=== PATIENT | female | born 1970 | race Caucasian/White ===

== ENCOUNTER 2016-11-26 14:28 | Emergency (ER) | payer OTHER ==
[2016-11-26 15:04] VITALS: BP 110/59
--- NOTE | 2016-11-26 15:11 | UC ---
UC General HPI - HPI Summary HPI Summary: Harsh cough, fevers, chest and throat tightness body aches - History of Current Complaint Chief Complaint: UCGeneralIllness Stated Complaint: BODY PAIN Time Seen by Provider: 11/26/16 15:10 Hx Obtained From: Patient Hx Last Menstrual Period: 05/17/13 Onset/Duration: Lasting Days, Worse Since - 24 hours Timing: Constant Onset Severity: Mild Current Severity: Moderate Associated Signs & Symptoms: Positive: Cough, Wheezing - Allergy/Home Medications Allergies/Adverse Reactions: Allergies Allergy/AdvReac Type Severity Reaction Status Date / Time Azithromycin [From Zithromax] Allergy Severe SEVERE GI Verified 02/22/13 21:54 PAIN Clarithromycin [From Biaxin] Allergy Severe REACTION Verified 02/22/13 21:54 WITH XANAX Codeine Allergy Severe Anaphylatic Verified 05/30/13 14:22 Shock Erythromycin Allergy Severe GI Upset Verified 02/22/13 21:54 Penicillins Allergy Unknown Unknown Verified 02/22/13 21:54 Reaction Details MULTIPLE ALLERGIES Allergy Severe See Comment Uncoded 05/30/13 14:22 Home Medications: Home Medications Acetaminophen [Tylenol] 650 mg PO 11/26/16 [History] Citalopram Hydrobromide [Celexa] 60 mg PO 11/26/16 [History] Pseudoephedrine-Guaifenesin [Mucinex D 60-600 mg] 1 tab PO 11/26/16 [History] PMH/Surg Hx/FS Hx/Imm Hx Previously Healthy: No - Fibromyalgia Psychological History: Anxiety - Surgical History Surgical History: Yes Surgery Procedure, Year, and Place: APPENDECTOMY, CHOLECYSTECTOMY, C-SECTIONX2 - Family History Known Family History: Positive: None - Social History 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 Lives: With Family Alcohol Use: Occasionally Substance Use Type: None Smoking Status (MU): Heavy Every Day Tobacco Smoker Type: Cigarettes Amount Used/How Often: 1/2 PPD Length of Time of Smoking/Using Tobacco: 25 YEARS Have You Smoked in the Last Year: Yes Cessation Counseling: Counseled 3+Min - 10 Min Review of Systems Constitutional: Fever, Chills, Fatigue Skin: Negative Eyes: Negative ENT: Sore Throat Respiratory: Cough Cardiovascular: Negative Gastrointestinal: Negative Genitourinary: Negative Motor: Negative Neurovascular: Negative Musculoskeletal: Arthralgia, Myalgia Neurological: Negative Psychological: Negative All Other Systems Reviewed And Are Negative: Yes Physical Exam Triage Information Reviewed: Yes Appearance: Ill-Appearing - mild, Pain Distress, Thin Vital Signs: Initial Vital Signs Temp 99.3 F 11/26/16 15:00 Pulse 76 11/26/16 15:00 Resp 18 11/26/16 15:00 BP 110/59 11/26/16 15:00 Pulse Ox 100 11/26/16 15:00 Vital Signs Reviewed: Yes Eye Exam: Normal Eyes: Positive: Conjunctiva Clear ENT Exam: Normal ENT: Positive: Normal ENT inspection, Hearing grossly normal, Pharynx normal, TMs normal. Negative: Nasal congestion, Nasal drainage, Tonsillar swelling, Tonsillar exudate, Trismus, Muffled/hoarse voice Dental Exam: Normal Neck exam: Normal Neck: Positive: Supple, Nontender, No Lymphadenopathy Respiratory Exam: Normal Respiratory: Positive: Chest non-tender, Lungs clear, No respiratory distress, No accessory muscle use, Wheezing - b/l Cardiovascular Exam: Normal Cardiovascular: Positive: RRR, No Murmur, Pulses Normal, Brisk Capillary Refill Musculoskeletal Exam: Normal Musculoskeletal: Positive: Strength Intact, ROM Intact, No Edema Neurological Exam: Normal Neurological: Positive: Alert, Muscle Tone Normal Psychological Exam: Normal Skin Exam: Normal Re-Evaluation - Re-Evaluation First Eval Change: Improved - increase aeration, feels much better after neb Course/Dx - Course Course Of Treatment: Keflex, smoking cesation information, albuterol MDI with spacer follow with pcp - Differential Dx - Multi-Symptom Differential Diagnoses: Sepsis, Urinary Tract Infection, Other - Bronchitis, nicotine dependent Provider Diagnoses: Acute bronchitis, nicotine dependent Discharge - Discharge Plan Condition: Stable Disposition: HOME Prescriptions: Albuterol HFA INHALER* [Ventolin HFA Inhaler*] 2 puff INH Q4H PRN #1 mdi PRN Reason: Cough Cephalexin CAP* [Keflex CAP*] 500 mg PO TID #21 cap Spacer/Aerosol-Holding Chamber [Aerochamber Plus] 1 mis XX SEE INSTRUCTIONS #1 mis Patient Education Materials: How to Stop Smoking (ED), Acute Bronchitis (ED), How to Use a Metered-Dose Inhaler and a Spacer (ED) Referrals: Elena Velazquez PA [Primary Care Provider] - 2 Weeks
[2016-11-26] MEDS ORDERED: Albuterol/Ipratropium NEB.SOL* Albuterol 2.5 MG/Ipratropium 0.5 MG 3 ML INH ONE (15:18)
[2016-11-26] MEDS ORDERED: predniSONE TAB* 20 MG PO ONE (15:19)
== END 2016-11-26 16:05 | disposition home or self-care (01) ==
LOC: UCEAST 14:28
DX: J20.9 Acute bronchitis, unspecified (principal); M79.7 Fibromyalgia; F41.9 Anxiety disorder, unspecified; Z90.49 Acquired absence of other specified parts of digestive tract; Z88.1 Allergy status to other antibiotic agents; Z88.5 Allergy status to narcotic agent; Z88.0 Allergy status to penicillin; F17.210 Nicotine dependence, cigarettes, uncomplicated; Z71.6 Tobacco abuse counseling
CPT/HCPCS: 99212; A9270-GY; G0463; J7512

== ENCOUNTER 2017-03-25 18:15 | Emergency (ER) | payer OTHER ==
[2017-03-25] MEDS ORDERED: Albuterol/Ipratropium NEB.SOL* Albuterol 2.5 MG/Ipratropium 0.5 MG 3 ML INH ONE (18:48)
[2017-03-25 19:15] VITALS: BP 125/75
--- NOTE | 2017-03-25 19:16 | RAD ---
INDICATION: Cough. History of pneumonia. Chest tightness. Tobacco use. COMPARISON: February 27, 2012 TECHNIQUE: Dual energy PA and routine lateral views of the chest were obtained. REPORT: Elevated lung volumes and both diffuse mild prominence of the interstitial markings and patchy rarefaction of the mid to upper lung zone interstitial markings. Negative for pleural effusion or pneumothorax. The heart, pulmonary vasculature, and mediastinal contours are unremarkable. Gallbladder fossa level surgical clips. Unremarkable soft tissue contours and osseous structures for age. IMPRESSION: Stigmata of obstructive lung disease. No acute pulmonary or cardiac process evident.
[2017-03-25] MEDS ORDERED: DOXYcycline CAP(*) 100 MG PO ONE (19:19)
--- NOTE | 2017-03-25 19:33 | UC ---
Throat Pain/Nasal Teto HPI - HPI Summary HPI Summary: FOUR DAYS OF CHEST CONGESTION SINUS PRESSURE PRODUCTIVE COUGH, WORSE TODAY. HISTORY OF PNEUMONIA ON JANUARY. - History of Current Complaint Chief Complaint: UCRespiratory Stated Complaint: COUGH/CONGESTION/HX OF PNEUMONIA Time Seen by Provider: 03/25/17 18:37 Hx Obtained From: Patient, Family/Line Repairer Hx Last Menstrual Period: 05/17/13 Onset/Duration: Gradual Onset, Lasting Days Severity: Moderate Cough: Productive Associated Signs & Symptoms: Positive: Hoarseness, Sinus Discomfort, Nasal Discharge - Epiglottits Risk Factors Epiglottis Risk Factors: Negative - Allergies/Home Medications Allergies/Adverse Reactions: Allergies Allergy/AdvReac Type Severity Reaction Status Date / Time Azithromycin [From Zithromax] Allergy Severe SEVERE GI Verified 02/22/13 21:54 PAIN Cephalexin Allergy Severe Rash Verified 03/25/17 19:06 Clarithromycin [From Biaxin] Allergy Severe REACTION Verified 02/22/13 21:54 WITH XANAX Codeine Allergy Severe Anaphylatic Verified 05/30/13 14:22 Shock Erythromycin Allergy Severe GI Upset Verified 02/22/13 21:54 Penicillins Allergy Unknown Unknown Verified 02/22/13 21:54 Reaction Details MULTIPLE ALLERGIES Allergy Severe See Comment Uncoded 03/25/17 19:06 Home Medications: Home Medications Albuterol 0.5% CONC NEB.SRIDHAR* 1 inh TID PRN 03/25/17 [History Confirmed 03/25/17] Benzonatate CAP* [Tessalon 100 MG CAP*] 1 cap TID PRN 03/25/17 [History Confirmed 03/25/17] Lansoprazole [Prevacid] 1 cap DAILY 03/25/17 [History Confirmed 03/25/17] PMH/Surg Hx/FS Hx/Imm Hx Previously Healthy: Yes - Surgical History Surgical History: Yes Surgery Procedure, Year, and Place: APPENDECTOMY, CHOLECYSTECTOMY, C-SECTIONX2 - Family History Known Family History: Positive: None - Social History Occupation: Employed Full-time Lives: With Family Alcohol Use: Occasionally Substance Use Type: None Smoking Status (MU): Heavy Every Day Tobacco Smoker Type: Cigarettes Amount Used/How Often: 1/2-1 PPD Length of Time of Smoking/Using Tobacco: 25 YEARS Have You Smoked in the Last Year: Yes - Immunization History Most Recent Influenza Vaccination: no Review of Systems Constitutional: Negative Skin: Negative Eyes: Negative ENT: Negative Respiratory: Negative Cardiovascular: Negative Gastrointestinal: Negative Genitourinary: Negative Motor: Negative Neurovascular: Negative Musculoskeletal: Negative Neurological: Negative Psychological: Negative Is Patient Immunocompromised?: No All Other Systems Reviewed And Are Negative: Yes Physical Exam Triage Information Reviewed: Yes Appearance: Well-Appearing, No Pain Distress, Well-Nourished Vital Signs: Initial Vital Signs Temp 97.9 F 03/25/17 19:09 Pulse 77 03/25/17 19:09 Resp 18 03/25/17 19:09 BP 125/75 03/25/17 19:09 Pulse Ox 99 03/25/17 19:09 Vital Signs Reviewed: Yes Eye Exam: Normal ENT: Positive: Hearing grossly normal, Pharynx normal, Nasal congestion, TM bulging, TM dull Dental Exam: Normal Neck exam: Normal Neck: Positive: Supple, Nontender Respiratory Exam: Other - COUGH Respiratory: Positive: Chest non-tender, Lungs clear, Normal breath sounds, No respiratory distress Cardiovascular Exam: Normal Cardiovascular: Positive: RRR, No Murmur, Pulses Normal, Brisk Capillary Refill Abdominal Exam: Normal Abdomen Description: Positive: Nontender, No Organomegaly Musculoskeletal Exam: Normal Neurological Exam: Normal Psychological Exam: Normal Skin Exam: Normal Throat Pain/Nasal Course/Dx - Differential Dx/Diagnosis Differential Diagnosis/HQI/PQRI: Pharyngitis, Sinusitis, Tonsillitis, URI Provider Diagnoses: SINUSITIS; BRONCHITIS Discharge - Discharge Plan Condition: Stable Disposition: HOME Prescriptions: DOXYcycline CAP(*) [DOXYcycline 100MG CAP(*)] 100 mg PO BID #20 cap Patient Education Materials: Sinusitis (ED), Acute Bronchitis (ED) Referrals: Elena Velazquez PA [Primary Care Provider] -
== END 2017-03-25 19:43 | disposition home or self-care (01) ==
LOC: UCCORT 18:15
DX: J32.9 Chronic sinusitis, unspecified (principal); J40 Bronchitis, not specified as acute or chronic; Z88.1 Allergy status to other antibiotic agents; Z88.5 Allergy status to narcotic agent; Z88.0 Allergy status to penicillin; F17.210 Nicotine dependence, cigarettes, uncomplicated
CPT/HCPCS: 71020; 99212; A9270-GY; G0463

== ENCOUNTER 2017-06-12 11:38 | Emergency (ER) | payer OTHER ==
--- OUTSIDE RECORDS SUMMARY | 2017-06-12 12:48 | XMS REPORT ---
:1970 External Reference #:[id number] Author Organization [facility] Address [address] [place] [address] Phone [phone] Care Team Providers Name Role Phone Jennifer Garcia M.D. Care Team Information Bpo Specialist Unavailable Jennifer Garcia M.D. Primary Care Physician Unavailable Payers Type Date Identification Numbers Payment Provider Subscriber Health Maintenance Policy Number: [id number] [facility] PayID: [id number] [address] [place] [id number] Problems Description No Information Family History Date Family Member(s) Problem(s) Comments General Seasonal Allergies General Asthma General Headache, Chronic General Gastroesophageal Reflux Disease (GERD) General Migraine General Hypertension General Skin Disease/ rash Father Seasonal Allergies Father Asthma Father Hypertension Father Skin Disease/ rash Skin cancer Mother Gastroesophageal Reflux Disease (GERD) Mother Headache, Chronic Mother Migraine Social History Type Date Description Comments Home 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 Home Environment Has a window air conditioner Home Environment Stairs are present Home Environment Finished Basement Home Environment The basement is dry Home Environment Cotton Comforter Home Environment Mattress is 1 year old Less than Home Environment Mattress is not encased in an allergy proof case Home Environment Regular Mattress Home Environment Rubber Mattress Home Environment Pillows are polyester Home Environment Pillows are not encased in an allergy proof case Home Environment Does not use a dehumidifier Home Environment There are draperies in the home Home Environment The home is not shady Home Environment The floors are wood Home Environment Uses propane gas heating Home Environment Uses forced air heating Home Environment [place] Home Environment Water Source: Well Smoke-Free Home is smoke-free Pets 2 dogs Pets Animals sleep in bedroom 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 Briseida EXTERIOR WORK HELPER-C tapered over 6 days. Symbicort 05/29/ Active Aerosol 160-4.5mc 10.20 2 Vannesa 2018 g/Act 0gm inhalations Forschavoer, am&pm - EXTERIOR WORK HELPER-C use with spacer- rinse mouth after use Albuterol 05/29/ Active Nebulizer (2.5mg/3M 90uni #1 via Ewelina Sulfate 2018 L) 0.083% ts nebulizer García, every 4-6 MD hours as needed for cough, shortness of breath and wheezing Ipratropium 05/29/ Active Solution 0.5-2.5(3 90ml 1 respule Vannesa [place]/Albuter 2017 )mg/3ML via Willer, ol Sulfate nebulizer EXTERIOR WORK HELPER-C every 6 hours as needed for cough, sob, wheezing Triamcinolone 05/23/ Active Aerosol 55mcg/Act 16.90 2 squirts L50.1 John W. Acetonide 2017 0ml each nostril Montes De Oca, once daily M.D. Doxycycline / Active Capsules 100mg Unknown Monohydrate 0000 Valacyclovir / Active Tablets 500mg Unknown HCL 0000 Citalopram / Active Tablets 40mg Unknown Hydrobromide 0000 Alprazolam / Active Tablets 0.5mg Unknown 0000 Benzonatate / Active Capsules 200mg White, 0000 ELIEZER Agrawal Lansoprazole / Active Capsules 30mg Jose, 0000 DR Ahmad, M.D. Ventolin HFA 00/00/ Active Aerosol 108(90Bas Marcus, 0000 e) ELIEZER Parker mcg/Act Albuterol / Hx Nebulizer (2.5mg/3M White, Sulfate 0000 - L) 0.083% ELIEZER Agrawal 2017 Vital Signs Date Vital Result Comment 05/29/2017 Height 62 inches 5'2" Weight 134.00 lb Weight in kg's 60.782 Respiratory Rate 20 /min Heart Rate 62 /min Body Temperature 97.1 F O2 % BldC Oximetry 98 % 98 re-check BP Systolic 118 mmHg BP Diastolic 71 mmHg BMI (Body Mass Index) 24.5 kg/m2 05/23/2017 Height 62 inches 5'2" Weight 134.00 lb Weight in kg's 60.782 Respiratory Rate 16 /min Heart Rate 89 /min Body Temperature 98.4 F O2 % BldC Oximetry 98 % BP Systolic 101 mmHg BP Diastolic 64 mmHg Asthma Control Test 20 BMI (Body Mass Index) 24.5 kg/m2 Results Description No Information Procedures Date CPT Code Description Status 05/29/2017 66474 Pulmonary Function Test Completed 05/23/2017 83842 Pre PFT Completed Plan of Care Future Appointment(s):06/27/2017 11:20 am - John Montes De Oca M.D. at [facility]05/29/2017 - MURIEL Collins-[id number] Encounter for [id number] Other allergic rhinitisNew Xrays:Chest Xray, 2 viewsNew Medication:Medrol 4 mgSymbicort 160-4.5 mcg/ActAlbuterol Sulfate (2.5 mg/3ML) 0.083%Ipratropium [place]/Albuterol Sulfate 0.5-2.5(3) mg/3MLComments: Dr Bennett also in to discuss w/ patient. Our assessments and recommendations were discussed with the patient or patient's daughter who expressed understanding and agreement with the treatment plan.Patient is happy with the current treatment plan and would like to continue with this regimen.Recommendations:Continue all medications as prescribed.Refrain from wearing perfumes/scented colognes while visitingour office. Patient to discuss an influenza vaccination with their primary-care provider. Educational materials provided to the patient. May use Duoneb (ipratropium bromide/ albuterol) 1 vial in nebulizer every 6 hours as needed for sob, wheeze, cough Start: Medrol dose pack for 6 days as directedon package CXR today STAT 2 views Continue doxycycline regimen until finished Start: Maintenance Inhaler Symbicort 2 puffs twice a day- rinse mouth after use- use w/ spacer If any symtpoms worsen-or you develope fever must go to ER. Or if symptoms are not relieved w/ rescue inhaler use call 911 and go to ER. Is following up with Dr Bennett tomorrow in [place] for recheck. She will obtain her labs (split into three different visits so she can tolerate better). F/u with new PCP tomorrow as scheduled. ER if symptoms worsen.
--- OUTSIDE RECORDS SUMMARY | 2017-06-12 12:48 | XMS REPORT ---
:1970 External Reference #:[id number] Author Organization [facility] Address [address] [place] [address] Phone [phone] Care Team Providers Name Role Phone Jennifer Garcia M.D. Care Team Information Aoc Operations Intelligence Chief Unavailable Jennifer Garcia M.D. Primary Care Physician Unavailable Payers Type Date Identification Numbers Payment Provider Subscriber Health Maintenance Policy Number: [id number] [facility] ([facility]) [facility] PayID: [id number] [address] [address] [place] [address] Problems Date Description Provider Status Onset: 05/30/2017 Exacerbation of moderate persistent Kathie Bennett M.D. Active asthma Onset: 05/30/2017 Allergic rhinitis Kathie Bennett M.D. Active Onset: 05/30/2017 Cough Kathie Bennett M.D. Active Onset: 05/23/2017 Mild intermittent asthma John Montes De Oca M.D. Active Onset: 05/23/2017 Immunization John Montes De Oca M.D. Active Onset: 05/23/2017 Idiopathic urticaria John Montes De Oca M.D. 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 Home Environment Has a window air conditioner [...] Lives in a new house in the [facility] Home Environment Water Source: Well Smoke-Free Home is smoke-free Pets 2 dogs Pets Animals sleep in bedroom 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 morning and evening Medrol 05/29/ Active TBPK 4mg 21uni 1 dose pack- [email or web address] ts take as hina Goins. 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 Symbicort 05/29/ Active Aerosol 160-4.5mc 10.20 2 2017 g/Act 0gm inhalations Donald, am&pm - M.D. use with spacer- rinse mouth after use Albuterol 05/29/ Active Nebulizer (2.5mg/3M 90uni #1 via Ewelina Sulfate 2018 L) 0.083% ts nebulizer García, every 4-6 MD hours as needed for cough, shortness of breath and wheezing Ipratropium 05/29/ Active Solution 0.5-2.5(3 90ml 1 respule [place]/Albuter 2017 )mg/3ML via Piershun, ol Sulfate nebulizer M.D. every 6 hours as needed for cough, sob, wheezing Triamcinolone 05/23/ Active Aerosol 55mcg/Act 16.90 2 squirts L50.1 John Reeder. Acetonide 2017 0ml each nostril Montes De Oca, once daily M.D. Valacyclovir / Active Tablets 500mg Unknown HCL 0000 Citalopram / Active Tablets 40mg Unknown Hydrobromide 0000 Alprazolam / Active Tablets 0.5mg Unknown 0000 Benzonatate / Active Capsules 200mg White, 0000 ELIEZER Agrawal Lansoprazole / Active Capsules 30mg Jose, 0000 DR Jennifer M.D. Ventolin HFA / Active Aerosol 108(90Bas Marcus, 0000 e) ELIEZER Parker mcg/Act Albuterol / Hx Nebulizer (2.5mg/3M White, Sulfate 0000 - L) 0.083% ELIEZER Agrawal 2017 Vital Signs Date Vital Result Comment 06/12/2017 Height 62 inches 5'2" Weight 134.00 lb Weight in kg's 60.782 Respiratory Rate 18 /min Heart Rate 77 /min O2 % BldC Oximetry 97 % BP Systolic 107 mmHg BP Diastolic 60 mmHg Asthma Control Test 7 BMI (Body Mass Index) 24.5 kg/m2 05/30/2017 Height 62 inches 5'2" Weight 134.00 lb Weight in kg's 60.782 Respiratory Rate 18 /min Heart Rate 71 /min O2 % BldC Oximetry 99 % BP Systolic 131 mmHg BP Diastolic 79 mmHg Asthma Control Test 9 BMI (Body Mass Index) 24.5 kg/m2 05/29/2017 Height 62 inches 5'2" Weight 134.00 [...] BMI (Body Mass Index) 24.5 kg/m2 Results Test Date Test Result H/L Range Note Xray 05/30/2017 Chest Xray, 2 views <pending> Procedures Date CPT Code Description Status 05/30/2017 39318 Ippb Completed 05/29/2017 60652 Pulmonary Function Test Completed 05/23/2017 13941 Pre PFT Completed Encounters Type Date Location Provider CPT E/M Dx Office Visit 05/30/2017 11:00a [place] Kathie Bennett M.D. 09694 J45.41 J30.89 R05 R05 J45.41 Office Visit 05/29/2017 1:20p [facility] OSVALDO CollinsC 37783 Z23 R05 J30.89 Plan of Care Future Appointment(s):07/10/2017 11:40 am - Kathie Bennett M.D. at [facility]06/12/2017 - MURIEL Collins-CZ23 Encounter for immunizationRecommendations:Continue all medications as prescribed.Refrain from wearing perfumes/scented colognes while visitingour office. Patient to discuss an influenza vaccination with their primary-care provider. Educational materials provided to the patient.
--- OUTSIDE RECORDS SUMMARY | 2017-06-12 12:48 | XMS REPORT ---
:1970 External Reference #:[id number] Author Organization [facility] Address [address] [place] [address] Phone [phone] Care Team Providers Name Role Phone Jennifer Garcia M.D. Care Team Information Electrical Technician Instructor Unavailable Jennifer Gracia M.D. Primary Care Physician Unavailable Payers Type Date Identification Numbers Payment Provider Subscriber Health Maintenance Policy Number: [id number] [facility] [place] [place] [facility] PayID: [id number] [address] [address] [place] [address] Problems Date Description Provider Status Onset: 05/30/2017 Exacerbation of moderate persistent Kathie Bennett M.D. Active asthma Onset: 05/30/2017 Allergic rhinitis Kathie Bennett M.D. Active Onset: 05/30/2017 Cough Kathie Bennett M.D. 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 Symbicort 05/29/ Active Aerosol 160-4.5mc 10.20 2 Kathie M 2018 g/Act 0gm inhalations Donald, am&pm - M.D. use with spacer- rinse mouth after use Albuterol 05/29/ Active Nebulizer (2.5mg/3M 90uni #1 via Ewelina Sulfate 2018 L) 0.083% ts nebulizer García, every 4-6 MD hours as needed for cough, shortness of breath and wheezing Ipratropium 05/29/ Active Solution 0.5-2.5(3 90ml 1 respule Kathie [place]/Albuter 2017 )mg/3ML via Piers[place]un, ol Sulfate nebulizer M.D. every 6 hours as needed for cough, sob, wheezing Triamcinolone 05/23/ Active Aerosol 55mcg/Act 16.90 2 squirts L50.1 John Pickens Acetonide 2017 0ml each nostril Montes De Oca, once daily M.D. Doxycycline / Active Capsules 100mg Unknown Monohydrate 0000 Valacyclovir / Active Tablets 500mg Unknown HCL 0000 Citalopram 00/ Active Tablets 40mg Unknown Hydrobromide 0000 Alprazolam [...] 2017 Vital Signs Date Vital Result Comment 05/30/2017 Height 62 inches 5'2" Weight 134.00 [...] <pending> Procedures Date CPT Code Description Status 05/29/2017 66860 Pulmonary Function Test Completed 05/23/2017 84189 Pre PFT Completed Encounters Type Date Location Provider CPT Lucretia/M Dx Office Visit 05/30/2017 11:00a Dorita Bennett M.D. 18349 R05 J30.89 J45.41 Plan of Care Future Appointment(s):07/10/2017 11:40 am - Kathie Bennett M.D. at [place] Pfolgo4406/12/2017 10:00 am - MAITE Collins at [place] Yvweaf2106/27/2017 11:20 am - John Montes De Oca M.D. at [place] Aatjql7205/30/2017 - Kathie Bennett M.D.R05 YdjdpK32.89 Other allergic ayupzjslG51.41 Moderate persistent asthma with (acute) exacerbationNew Medication:Dulera 100-5 mcg/ActFollow up:2 weeks, *DISCUSSION: After the evaluation is completed, the results and treatment choices will be explained.Recommendations:Refrain from wearing perfumes/scented colognes while visiting our office. Patient to discuss an influenza vaccination with primary-care provider. Educational material provided to the patient. DuoNeb now okay to use DuoNeb (ipratropium bromide/ albuterol) 1 vial in nebulizer every 6 hours as needed forsob, wheeze, cough Continue doxycycline regimen until finished Start: Maintenance Inhaler Symbicort 160/4.5 2 puffs twice a day- rinse mouth after use- use w/ spacer If any symptoms worsen- or you develop fever must go to ER. Or if symptoms are not relieved w/ rescue inhaler use call 911 and go toER. She will obtain her labs (split into three different visits so she can tolerate better). consider pulmonary f/u
--- OUTSIDE RECORDS SUMMARY | 2017-06-12 12:49 | XMS REPORT ---
:1970 External Reference #:[id number] Author Organization [facility] 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 Active Onset: 06/11/2014 Carcinoma in situ of skin Mee Yao M.D. Active Onset: 06/11/2014 Abnormal cervical Papanicolaou smear Mee Yao M.D. Active Onset: 06/11/2014 Anxiety disorder Mee Yao M.D. Active Onset: 06/11/2014 Multiple joint pain Mee Yao M.D. Active Onset: 06/11/2014 Adult health examination Mee Yao M.D. Active Note: A1C 5.18 Jan 2016, TSH, Lyme, B12, folate WNL Jan 2016. HCV neg Jan 2016. HIV neg September 2016 Onset: 04/22/2015 Joint pain Greg Amador DO Active Onset: 07/26/2016 Vasovagal symptom Elena Velazquez PA-C Active Note: With ear irrigations- do NOT irrigate ears Onset: 05/22/2017 Acute upper respiratory infection Chino Desai M.D. Active Onset: 05/22/2017 Acute bronchitis Chino Desai M.D. Active Family History Date Family Member(s) Problem(s) Comments Father Pituitary Tumors Father 65 Father Hypertension Mother 62 Mother Epilepsy Social History Type Date Description Comments Marital Status Single Lives With Alone Diet Patient follows no dietary restrictions Diet Healthy, Well Balanced Occupation Disabled Cigarette Use currently smokes 1/2 Pack Daily X 23 YEARS ETOH Use Rarely consumes alcohol Recreational Drug Use Denies Drug Use Smoking Heavy tobacco smoker (more than 10 cigarettes/day) Daily Caffeine Does Not Consume Caffeine Enjoy Exercising Patient enjoys exercising 4X PER WEEK Tattoo/Piercing Tattoo Tattoo/Piercing Pierced Navel Tattoo/Piercing Pierced ears Tattoo/Piercing Pierced Eyebrow Right Currently Active Patient is currently sexually active # Partners in a Lifetime Has been with current partner for 5 months Allergies, Adverse Reactions, Alerts Date Description Reaction Status Severity Comments 04/14/2010 Seafood RASH active 04/14/2010 Latex RASH active 06/11/2014 Codeine active 06/11/2014 Zithromax active 06/22/2016 Metronidazole nausea,HTN active Moderate to Severe only oral form 07/26/2016 Ear Irrigation active vasovagal syncope 11/28/2016 Penicillin Anaphylaxis active Severe 11/28/2016 Cephalexin possible - rash active Mild to Moderate Medications Medication Date Status Form Strength Qnty SIG Indications Ordering Provider Ventolin HFA 12/25 Active Aerosol 108(90Bas 1inha 2 puffs every e) ler 4 hours as Duron, mcg/Act needed dyspnea M.D. Ipratropium 11/28 Active Solution 0.02% 75ml 0.5 mg J20.9 [place] nebulized Duron, every 4 hours M.D. as needed Nebulizer 11/27 Active Device 1unit uad with Deven s ipratropium Joselyn Duron Nebulizer 11/27 Active Kit 1unit uad with Deven Kit/Tubing/Brianna s nebulfariba Palacios M.D. Benzonatate 11/27 Active Capsules 200mg 90cap 1 by mouth J20.9 s three times a Duron, day as needed MBrindaDBrinda cough Lansoprazole 12/15 Active Capsules 30mg 90cap [address] cordova every day Joselyn Duron Nystatin 05/27 Active Powder [id number] 180gm use twice a H66.91 t/GM day as hina Duron M.D. Zyrtec Allergy 04/22 Active Capsules 10mg 30cap 1 by mouth Greg EBrinda /2015 s every day Perry DO Xanax Active Tablets 0.5mg 1/2 tab 4 Unknown /0000 times day & 1 tab at bedtime Citalopram Active Tablets 40mg 1 by mouth Unknown Hydrobromide / every day Valacyclovir Active Tablets 500mg 90tab take one HCL / s tablet by Duron, mouth daily as M.D. needed Levofloxacin 11/29 Hx Tablets 750mg 7tabs 1 by mouth every day x 7 Duron, days M.DBrinda Nicotrol 11/28 Hx Inhaler 10mg 168un 6-16 F17.200 its cartridges Duron, daily as M.DBrinda needed Albuterol 11/27 Hx Nebulizer (2.5mg/3M 75ml nebulized Deven Sulfate /2016 L) 0.083% every 4 hours Oliverio, - as needed M.D. 11/28 Prednisone 11/27 Hx Tablets 10mg 90tab 3 by mouth J20.9 s every day x 3 Duron, - days M.D. 11/27 Prednisone 11/27 Hx Solution 5mg/5ML 120ml 30 mg orally J20.9 daily Joselyn Duron Amoxicillin/Cl 10/05 Hx Tablets 875-125mg 20tab 1 by mouth L03.032 avulanate s twice a day x Oliverio Potassium 10 days M.DBrinda Monistat 3 10/05 Hx Cream 4% 1Kit 1 B37.3 applicatorful Duron, vaginal crm pv M.D. qhs x3 days; apply topical crm externally bid prn Azelastine HCL 07/26 Hx Solution 0.15% 90ml 1-2 sprays J30.9 (Nasal) intranasally Duron, twice a day M.D. Metrogel-Vagin 06/22 Hx Gel 0.75% 70gm 1 N76.0 applicatorful Duron, pv bid x 5 M.D. days Augmentin 06/21 Hx Tablets 875-125mg 20tab 1 by mouth s twice a day x Duron, - 10 days M.D. 06/21 Cephalexin 06/21 Hx Capsules 500mg 21cap 1 PO tid x 7 J01.90 s days Joselyn Duron Cephalexin 02/08 Hx Capsules 500mg 14cap 1 PO bid x 7 J01.90 Greg Alarcon s kacey Amador DO - 06/21 Cephalexin 05/27 Hx Tablets 500mg 30tab 1 po tid H66.91 Greg Alarcon /2015 s Perry BROWN - 12/15 Fluconazole 05/27 Hx Tablets 150mg 1tabs 1 po at sign H66.91 Greg Alarcon of yeast Perry BROWN - infection 12/15 Flax Seed Oil 04/22 Hx Capsules 1000mg 1 by mouth Greg EBrinda /2015 every day Perry BROWN Colace 04/20 Hx Capsules 100mg 60cap 1 po bid 564.00 s Erich Mtz M.D. 06/10 V22.1 Prenate 04/20/2010 - Hx Capsules 28-0.6-0.4-340mg 60caps 1 po qd V22.1 Jacques Essential 06/10/2014 Joselyn Mtz Multivitamins Hx Capsules 90caps 1 by Unknown mouth every day Epsom Salt Hx Granules Unknown Betadine Skin Hx Solution 7.5% Unknown Cleanser Mupirocin Hx Ointment 2% LT toe Unknown bid Cephalexin - Hx Tablets 500mg 1 tab L03.03 Unknown 11/28/2016 orally 2 three times daily Ventolin HFA - Hx Aerosol 108(90Base) Dibartol 11/28/2016 mcg/Act o, Soniya Rodríguez, N.P. Vital Signs Date Vital Result Comment 05/22/2017 BP Systolic Sitting Left Arm 101 mmHg BP Diastolic Sitting Left Arm 65 mmHg Body Temperature 99.7 F Heart Rate 84 /min Respiratory Rate 18 /min Height 61 inches 5'1" Weight 135.00 lb BMI (Body Mass Index) 25.5 kg/m2 BSA (Body Surface Area) 1.60 m2 [place] body weight in kilograms 48 O2 % BldC Oximetry 98 % 11/28/2016 BP Systolic Sitting Right Arm 103 mmHg BP Diastolic Sitting Right Arm 69 mmHg Body Temperature 99.1 F Heart Rate 70 /min Respiratory Rate 18 /min Height 61 inches 5'1" Weight 130.00 lb BMI (Body Mass Index) 24.6 kg/m2 BSA (Body Surface Area) 1.57 m2 [place] body weight in kilograms 48 O2 % BldC Oximetry 99 % 11/27/2016 BP Systolic Sitting Right Arm 106 mmHg BP Diastolic Sitting Right Arm 70 mmHg Body Temperature 98.0 F Heart Rate 68 /min Respiratory Rate 16 /min Height 61 inches 5'1" Weight 130.00 lb BMI (Body Mass Index) 24.6 kg/m2 BSA (Body Surface Area) 1.57 m2 [place] body weight in kilograms 48 O2 % BldC Oximetry 98 % 10/05/2016 BP Systolic 102 mmHg BP Diastolic 69 mmHg Body Temperature 98.2 F Heart Rate 71 /min Height 61 inches 5'1" Weight 130.00 lb BMI (Body Mass Index) 24.6 kg/m2 BSA (Body Surface Area) 1.57 m2 [place] body weight in kilograms 48 07/26/2016 BP Systolic 119 mmHg BP Diastolic 68 mmHg Body Temperature 97.3 F Heart Rate 70 /min Height 61 inches 5'1" Weight 131.00 lb BMI (Body Mass Index) 24.7 kg/m2 BSA (Body Surface Area) 1.58 m2 06/22/2016 BP Systolic 116 mmHg BP Diastolic 72 mmHg Heart Rate 70 /min Height 61 inches 5'1" Weight 134.00 lb BMI (Body Mass Index) 25.3 kg/m2 BSA (Body Surface Area) 1.59 m2 02/09/2016 BP Systolic 115 mmHg BP Diastolic 58 mmHg Heart Rate 63 /min Height 61 inches 5'1" Weight 133.00 lb BMI (Body Mass Index) 25.1 kg/m2 BSA (Body Surface Area) 1.59 m2 12/16/2015 BP Systolic 126 mmHg BP Diastolic 78 mmHg Body Temperature 98.5 F Heart Rate 68 /min Respiratory Rate 16 /min Height 61 inches 5'1" Weight 127.00 lb BMI (Body Mass Index) 24.0 kg/m2 BSA (Body Surface Area) 1.56 m2 05/27/2015 BP Systolic Sitting Left Arm 118 mmHg BP Diastolic Sitting Left Arm 80 mmHg Body Temperature 98.0 F Heart Rate 68 /min Height 61 inches 5'1" Weight 128.00 lb BMI (Body Mass Index) 24.2 kg/m2 BSA (Body Surface Area) 1.56 m2 O2 % BldC Oximetry 97 % 04/22/2015 BP Systolic Sitting Left Arm 114 mmHg BP Diastolic Sitting Left Arm 70 mmHg Heart Rate 68 /min Height 61 inches 5'1" Weight 129.00 lb BMI (Body Mass Index) 24.4 kg/m2 BSA (Body Surface Area) 1.57 m2 O2 % BldC Oximetry 98 % 06/11/2014 BP Systolic Sitting Right Arm 107 mmHg BP Diastolic Sitting Right Arm 63 mmHg Heart Rate 90 /min Respiratory Rate 18 /min Height 61 inches 5'1" Weight 125.00 lb BMI (Body Mass Index) 23.6 kg/m2 BSA (Body Surface Area) 1.55 m2 O2 % BldC Oximetry 99 % 07/08/2010 BP Systolic Sitting Left Arm 100 mmHg BP Diastolic Sitting Left Arm 62 mmHg Heart Rate 88 /min Respiratory Rate 18 /min Height 62 inches 5'2" Weight 133.00 lb BMI (Body Mass Index) 24.3 kg/m2 06/14/2010 Heart Rate 76 /min Respiratory Rate 20 /min Weight 130.00 lb 05/11/2010 Heart Rate 75 /min Respiratory Rate 18 /min Weight 128.00 lb 04/14/2010 Heart Rate 71 /min Respiratory Rate 18 /min Weight 126.00 lb Results Test Date Test Result H/L Range Note Laboratory Studies 03/19/2017 Absolute Basophils (auto) 0.1 10^3/ul 0- 0.2 Absolute Eosinophils (auto) 0.2 10^3/ul 0-0.6 Absolute Lymphocytes (auto) 2.0 10^3/ul 1.0-4.8 Absolute Monocytes (auto) 0.4 10^3/ul 0-0.8 Absolute Neutrophils (auto) 2.7 10^3/ul 1.5-7.7 Alanine Aminotransferase (Alt/SGPT) 11 U/L 7-52 Albumin 4.2 g/dL 3.2-5.2 Albumin/Globulin Ratio 1.9 1-3 Alkaline Phosphatase 33 U/L Low 34-104 Anion Gap 5 mmol/L 2-11 Aspartate Amino Transf (Ast/Sgot) 15 U/L 13-39 BUN/Creatinine Ratio 11.1 8-20 Basophils (%) (Auto) 1.9 % 0-2 Blood Urea Nitrogen 8 mg/dL 6-24 Calcium Level 9.1 mg/dL 8.6-10.3 Carbon Dioxide Level 27 mmol/L 22-32 Chloride Level 106 mmol/L 101-111 Cholesterol Level 139 mg/dL Creatinine 0.72 mg/dL 0.51-0.95 Eosinophils (%) (Auto) 4.2 % 0-6 Estimated GFR () 112.1 Estimated GFR (Non- 87.2 Globulin 2.2 g/dL 2-4 Glucose Level 92 mg/dL 70-100 HDL Cholesterol 55.4 mg/dL Hematocrit 39 % 35-47 Hemoglobin 13.1 g/dL 12.0-16.0 Hemoglobin A1c 5.5 % 4.0-5.6 LDL Cholesterol 64 mg/dL Lymphocytes (%) (Auto) 36.1 % 25-47 Mean Corpuscular Hemoglobin 33 pg High 27-31 Mean Corpuscular Hemoglobin Concent 34 g/dL 31-36 Mean Corpuscular Volume 97 fL 80-97 Mean Platelet Volume 9 um3 7.4-10.4 Monocytes (%) (Auto) 7.9 % 1-9 Neutrophils (%) (Auto) 49.9 % 38-83 Nucleated RBC Absolute Count (auto) 0 10^3/ul Nucleated Red Blood Cells % 0 Platelet Count 199 10^3/ul 150-450 Potassium Level 4.0 mmol/L 3.5-5.0 Red Blood Count 4.00 10^6/ul 4.0-5.4 Red Cell Distribution Width 13 % 10.5-15 Sodium Level 138 mmol/L 133-145 Thyroid Stimulating Hormone (TSH) 0.65 mcIU/mL 0.34-5.60 Total Bilirubin 0.40 mg/dL 0.2-1.0 Total Protein 6.4 g/dL 6.4-8.9 Triglycerides Level 100 mg/dL White Blood Count 5.5 10^3/ul 3.5-10.8 Laboratory test finding 10/05/2016 Rapid Abdet Non-Reactive 1, 2 Laboratory test finding 02/09/2016 Thyroid Stim 0.78 uIU/mL 0.30-4.20 3 Hormone Comprehensive Metabolic 02/09/2016 Glucose 102 mg/dL 74-106 3 Panel BUN 10 mg/dL 7-18 3 Creatinine 0.8 mg/dL 0.6-1.3 3 Glom Filtration Rate, Estimate >60 mL/min >60 3 If >60 mL/min >60 3, 4 BUN/Creat 12.5 ratio 3 Sodium 140 mmol/L 136-145 3 Potassium 4.3 mmol/L 3.5-5.1 3 Chloride 108 mmol/L High 98-107 3 Carbon Dioxide 30 mmol/L 21-32 3 Anion Gap 2 mEq/L Low 8-16 3 Calcium 8.4 mg/dL Low 8.5-10.1 3 Total Protein 6.8 g/dL 6.4-8.2 3 Albumin 3.8 g/dL 3.4-5.0 3 Globulin 3.0 g/dL 1.9-4.3 3 Alb/Glob 1.3 ratio 3 Bilirubin,Total 0.3 mg/dL 0.2-1.0 3 Sgot/Ast 12 U/L Low 15-37 3, 5 SGPT/Alt 14 U/L 12-78 3 Alkaline Phosphatase 44 U/L Low 45-117 3 Hepatitis C Antibody 02/09/2016 Hepatitis C Antibody Nonreactive Nonreactive 3 Signal/Cutoff ratio < 0.02 <0.80 3, 6 Laboratory test 02/09/2016 Lyme Total AB/Reflex < 0.91 ISR 0.00-0.90 3, 7 finding To WB CBS W/Automated Diff 02/09/2016 White Blood Count 9.4 K/uL 3.1-10.7 3 Red Blood Count 3.99 M/uL 3.90-5.40 3 Hemoglobin 13.6 gm/dL 11.6-15.8 3 Hematocrit 39.3 % 36.0-46.1 3 Mean Cell Volume 98.5 fl 80.9-99.0 3 Mean Corpuscular HGB 34.1 pg High 25.9-32.7 3 Mean Corpuscular HGB Conc 34.6 g/dL High 30.8-34.3 3 Platelet Count 187 K/uL 155-360 3 Red Cell Distri Width SD 42.1 fl 3-47 3 Red Cell Distri Width %CV 11.9 % 11.7-14.4 3 Mean Platelet Volume 11.0 fL 8.9-12.4 3 Neut% 62.2 % 40.4-72.8 3 Lymph % 27.5 % 17.0-46.1 3 [place] % 7.2 % 4.3-13.2 3 Eo% 2.7 % 0.0-6.6 3 Bas% 0.4 % 0.0-1.1 3 Neut# 5.83 K/uL 1.8-7.0 3 Lymph # 2.57 K/uL 1.8-7.0 3 [place] # 0.67 K/uL 0.3-0.9 3 Eos # 0.25 K/uL 0.0-0.5 3 Baso # 0.04 K/uL 0.0-0.1 3 Vitamin B12 And Folate 02/09/2016 Vitamin B12 486 pg/mL 193-986 3 Folic Acid 40.7 ng/mL High 3.1-17.5 3 Glycohemoglobin A1c 02/09/2016 Glycohemoglobin (A1c) 5.4 % 4.2-6.3 3, 8 eAG 108 mg/dL 3 Laboratory test finding 04/30/2015 Rheumatoid Factor < 10.0 IU/mL 0.0- 15.0 Screen Anti-Nuclear Antibodies Direct Negative AU/mL Negative Sedimentation Rate 5 mm/hr 0-20 C-Reactive Protein,Cardiac < 0.16 mg/L <3.0 CBS W/Automated Diff 04/30/2015 White Blood Count 5.3 K/uL 3.1-10.7 Red Blood Count 3.94 M/uL 3.90-5.40 Hemoglobin 13.0 gm/dL 11.6-15.8 Hematocrit 38.5 % 36.0-46.1 Mean Cell Volume 97.7 fl 80.9-99.0 Mean Corpuscular HGB 33.0 pg High 25.9-32.7 Mean Corpuscular HGB Conc 33.8 g/dL 30.8-34.3 Platelet Count 186 K/uL 155-360 Red Cell Distri Width SD 42.2 fl 3-47 Red Cell Distri Width %CV 12.0 % 11.7-14.4 Mean Platelet Volume 10.4 fL 8.9-12.4 Neut% 44.0 % 40.4-72.8 Lymph % 43.3 % 17.0-46.1 [place] % 7.2 % 4.3-13.2 Eo% 4.6 % 0.0-6.6 Bas% 0.9 % 0.0-1.1 Neut# 2.32 K/uL 1.8-7.0 Lymph # 2.28 K/uL 1.8-7.0 [place] # 0.38 K/uL 0.3-0.9 Eos # 0.24 K/uL 0.0-0.5 Baso # 0.05 K/uL 0.0-0.1 Comprehensive Metabolic Panel 04/30/2015 Glucose 85 mg/dL 74-106 BUN 9 mg/dL 7-18 Creatinine 0.7 mg/dL 0.6-1.3 Glom Filtration Rate, Estimate >60 mL/min >60 If >60 mL/min >60 9 BUN/Creat 12.8 ratio Sodium 137 mmol/L 136-145 Potassium 3.9 mmol/L 3.5-5.1 Chloride 106 mmol/L 98-107 Carbon Dioxide 27 mmol/L 21-32 Anion Gap 4 mEq/L Low 8-16 Calcium 8.4 mg/dL Low 8.5-10.1 Total Protein 6.9 g/dL 6.4-8.2 Albumin 3.8 g/dL 3.4-5.0 Globulin 3.1 g/dL 1.9-4.3 Alb/Glob 1.2 ratio Bilirubin,Total 0.4 mg/dL 0.2-1.0 Sgot/Ast 16 U/L 15-37 SGPT/Alt 21 U/L 12-78 Alkaline Phosphatase 42 U/L Low 45-117 Sjogren's Antibodies 04/30/2015 Sjogrens Antibodies (Ssa) <0.2 AI 0.0- 0.9 Sjogrens Antibodies (SSB) <0.2 AI 0.0-0.9 10 CBC W/Automated Diff 04/19/2010 White Blood Count 8.0 K/uL 3.1-10.7 Red Blood Count 3.45 M/uL Low 3.90-5.40 Hemoglobin 11.3 gm/dL Low 11.6-15.8 Hematocrit 33.2 % Low 36.0-46.1 Mean Cell Volume 96.2 fl 80.9-99.0 Mean Corpuscular HGB 32.8 pg High 25.9-32.7 Mean Corpuscular HGB Conc 34.0 g/dL 30.8-34.3 Platelet Count 193 K/uL 155-360 Red Cell Distri Width %CV 11.5 % Low 11.7-14.4 Mean Platelet Volume 10.0 fL 8.9-12.4 Neut% 67.0 % 40.4-72.8 Lymph % 24.6 % 17.0-46.1 [place] % 6.7 % 4.3-13.2 Eo% 1.2 % 0.0-6.6 Bas% 0.5 % 0.0-1.1 Neut# 5.4 K/uL 1.0-7.0 Lymph # 2.0 K/uL 0.8-3.4 [place] # 0.5 K/uL 0.3-0.9 Eos # 0.1 K/uL 0.0-0.5 Baso # 0.0 K/uL 0.0-0.1 Red Cell Distri Width SD 39.0 fl 3-47 Type And Screen 04/19/2010 Patient Blood Type O POS Antibody Screen NEGATIVE Laboratory test finding 04/19/2010 Urine Screen See Note 11 Urine Culture See Note 12 Urinalysis With Microscopic 04/19/2010 Urine Color YELLOW Yellow Urine Clarity CLEAR Clear Urine Glucose - Dipstick NEGATIVE mg/dL Negative Urine Bilirubin - Dipstick NEGATIVE Negative Urine Ketone NEGATIVE mg/dL Negative Urine Specific [place] 1.010 1.010-1.030 Urine Blood TRACE Negative Urine PH 6.0 Low 6.5-7.5 Urine Protein - Dipstick NEGATIVE mg/dL Negative Urine Urobilinogen - Dipstick 0.2 E.U./dL 0.2-1.0 Urine Nitrite - Dipstick NEGATIVE Negative Urine Leuk Esterase NEGATIVE Negative Urine RBC 0-2 rbc/hpf 0-7 Urine WBC 2-5 wbc/hpf 0-7 Urine Epithelial Cells FEW NONESEEN Urine Bacteria MODERATE NONESEEN High Urine Mucus SMALL NONESEEN Laboratory test finding 04/19/2010 Toxoplasma IgG Antibody 83.8 IU/mL High 0.0-6.4 13 Toxoplasma IgM Antibody <0.9 index 0.0-0.8 14 Varicella-Zoster Virus IgG Ab 1.30 index High 0.00-0.90 15 Varicella-Zoster Virus IgM Ab <0.91 AU 0.00-0.90 16 Rapid Plasma Reagin NONREACTIVE NONREACTIVE 17 Thyroid Stim Hormone 0.05 uIU/mL Low 0.49-4.67 18 Free T4 1.29 ng/dL 0.71-1.85 19 Hepatitis B Surface Antigen NEGATIVE Negative 20 Rubella IgG Antibody POSITIVE (Positive) 21 Type And Screen See Note 22 Parvovirus B19,Human Igg/Igm 04/19/2010 Parvovirus B19 Igg 1.2 index High 0.0-0.8 23 Parvovirus B19 Igm 0.2 index 0.0-0.8 24 Dna Probe N. Gono + C. 04/14/2010 Dna Probe For Chlamydia Trac. See Note 25 Trach. Dna Probe For N. Gonorrhoeae See Note 26 1 Z11.4 2 NOTE: A NON-REACTIVE RESULT INDICATES THAT HIV-1 (HTLV III) ANTIBODIES HAVE NOT BEEN FOUND IN THIS PATIENT SPECIMEN. A NON-REACTIVE RESULT, HOWEVER, DOES NOT PRECLUDE PREVIOUS EXPOSURE OF INFECTION WITH HIV-1. * [place] STATE LAW PROHIBITS THE REDISCLOSURE OF THIS RESULT * * TO ANY UNAUTHORIZED [employer]. * Method: Uni-Gold Recombigen HIV 1/2 Rapid Immunoassay [employer] 3 R53.83 4 Note: Persistent reduction for 3 months or more in an eGFR <60 mL/min/1.73 m2 defines CKD. Patients with eGFR values >/=60 mL/min/1.73 m2 may also have CKD if evidence of persistent proteinuria is present. The original MDRD equation for estimated GFR is not valid for patients less than 18 years of age. Additional information may be found at www.kdoqi.org. 5 Values below the stated reference ranges of AST and ALT can be seen in normal populations. Clinical correlation is suggested. 6 Antibodies to HCV not detected; does not exclude early acute HCV infection. 7 Negative <0.91 Equivocal 0.91 - 1.09 Positive >1.09 Performed at: - [facility] [address] [id number] [place]: Diana Armstrong MD, Phone: [phone] Elevated levels of HbA1c suggest the need for more aggressive treatment of glycemia. The [place] [employer] recommends that a primary goal of therapy should be a HbA1c of <7% and that physicians should re-evaluate the treatment regimen in patients with HbA1c values consistently >8%. 9 Note: Persistent reduction for 3 months or more in an eGFR <60 mL/min/1.73 m2 defines CKD. Patients with eGFR values >/=60 mL/min/1.73 m2 may also have CKD if evidence of persistent proteinuria is present. The original MDRD equation for estimated GFR is not valid for patients less than 18 years of age. Additional information may be found at www.kdoqi.org. 10 Performed at: RN - [facility] [address] [id number] [place]: Diana Armstrong MD, Phone: [phone] 04/19/10 LAB.RAB Deleted by [facility] 12 NO GROWTH: FINAL REPORT 13 Negative <6.5 Equivocal 6.5 - 7.9 Positive >7.9 14 Negative <0.9 Indeterminate 0.9 - 1.0 Positive >1.0 Although the presence of Toxo IgM antibodies suggests an acute infection, low levels may persist for many months following infection. 15 Negative <0.91 Equivocal 0.91 - 1.09 Positive >1.09 16 Negative <0.91 Borderline 0.91 - 1.09 Positive >1.09 Performed at: RN - [facility] [address] [id number] [place]: Eric Mata MD, Phone: [phone] PENDING; TEST PERFORMED ON MONDAYS AND THURSDAYS PATIENT UNABLE TO KEEP GLUCOLA DOWN FOR 1 HOUR-SHE WILL RETURN FOR THAT TEST QUERY: @EMR Pat ID: [id number] QUERY: @EMR Req #: [id number] PATIENT UNABLE TO KEEP GLUCOLA DOWN FOR 1 HOUR-SHE WILL RETURN FOR THAT TEST QUERY: @EMR Pat ID: [id number] QUERY: @EMR Req #: [id number] 18 A low TSH should not be the sole basis for diagnosing primary hyperthyroidism, or primary hypopituitary function. Additional tests are suggested for confirmation. 19 PATIENT UNABLE TO KEEP GLUCOLA DOWN FOR 1 HOUR-SHE WILL RETURN FOR THAT TEST QUERY: @EMR Pat ID: [id number] QUERY: @EMR Req #: [id number] 20 HBsAg not detected; does not exclude the possibility of exposure to or early acute infections with HBV. 21 PATIENT UNABLE TO KEEP GLUCOLA DOWN FOR 1 HOUR-SHE WILL RETURN FOR THAT TEST QUERY: @EMR Pat ID: [id number] QUERY: @EMR Req #: [id number] [phone] 04/19/10 LAB.CBL MANUAL TYPE AND SCREEN 23 Negative <0.9 Equivocal 0.9 - 1.1 Positive >1.1 24 Negative <0.9 Equivocal 0.9 - 1.1 Positive >1.1 25 NEGATIVE FOR CHLAMYDIA TRACHOMATIS BY DNA HYBRIDIZATION ASSAY. THIS TEST IS APPROVED FOR OCULAR AND UROGENITAL SITES ONLY. 26 NEGATIVE FOR NEISSERIA GONORRHOEAE BY DNA HYBRIDIZATION ASSAY. THIS METHOD IS APPROVED FOR UROGENITAL SITES ONLY. Procedures Date CPT Code Description Status 04/14/2010 57996 Ultrasound Transvag, Completed Encounters Type Date Location Provider CPT E/M Dx Office Visit 05/22/2017 1:30p Primary Care Office Chino Desai 68895 J20.9 Joselyn J06.9 Office Visit 11/28/2016 3:30p Primary Care Office Elena Velazquez PA-C 21260 R21 J20.9 N60.19 F17.200 Z71.6 Office Visit 11/27/2016 2:00p Primary Care Office Elena Velazquez 31877 J20.9 PA-C M79.7 F43.10 F17.200 Office Visit 10/05/2016 3:00p Primary Care Office Elena Velazquez, 32585 L03.032 PA-C B37.3 H61.21 Office Visit 07/26/2016 11:30a Primary Care Office Elena Velazquez, 83468 J30.9 PA-C L60.0 K21.9 H61.21 Office Visit 06/22/2016 2:30p Primary Care Office Elena Velazquez, 38906 L03.032 PA-C L60.0 M79.7 F17.200 Office Visit 02/09/2016 11:30a Primary Care Office Elena Velazquez, 01163 J01.90 PA-C R53.83 Z13.220 K21.9 M79.7 Office Visit 12/16/2015 11:00a Primary Care Office Elena Velazquez, 12574 R53.83 PA-C Z13.220 K21.9 M79.7 K59.00 Office Visit 05/27/2015 10:40a [place] [address] H66.91 L30.4 Office Visit 04/22/2015 11:00a [place] [address] M25.50 H61.21 Office Visit 06/11/2014 3:20p Primary Care Office Mee Yao M.D. 25075 995.3 232.8 795.09 293.84 719.49 V70.0 Office Visit 07/08/2010 1:40p [facility] Jacques Mtz M.D. 81358 V22.1 654.23 V23.9 659.63 Office Visit 06/14/2010 2:00p colorist formulator Office Jacques Mtz M.D. 81366 V22.1 654.23 V23.9 659.63 Office Visit 05/11/2010 2:10p colorist formulator Office Jacques Mtz M.D. 70310 V22.1 654.23 Office Visit 04/14/2010 10:45a colorist formulator Office Jacques Mtz M.D. 36533 V22.1 654.23 Plan of Care Future Appointment(s):07/10/2017 8:40 am - Myriam Thornton MD at [facility] [id number]/22/2017 - Chino Desai M.D.J20.9 Acute bronchitis, unspecifiedComments:Rest, fluids, over the counter remedies as needed for symptom relief, tylenol/motrin for fever or discomfort. Viral vs bacterial discussed as well as risks of antibiotics. Antibiotic prescription provided for possible bacterial infection due to presenting symptoms and patient's concern, but encouragedto focus on symptomatic remedies.Chest xray ordered due to history of pneumonia with similar symptoms.Recheck with primary provider in 1-2 weeks, immediately or to emergency department. Patient understands and agrees with the plan.J06.9 Acute upper respiratory infection, unspecified
[2017-06-12 12:58] VITALS: BP 107/69
--- NOTE | 2017-06-12 13:26 | UC ---
Throat Pain/Nasal Teto HPI - HPI Summary HPI Summary: sore throat x 2 days fever, chills, nasal congestion grand sons + for strep - History of Current Complaint Chief Complaint: UCRespiratory Stated Complaint: SORE THROAT Time Seen by Provider: 06/12/17 13:18 Hx Obtained From: Patient Hx Last Menstrual Period: 05/17/13 Onset/Duration: Gradual Onset, Lasting Days - 2, Still Present Severity: Moderate Pain Intensity: 4 Cough: Nonproductive Associated Signs & Symptoms: Positive: Nasal Discharge, Fever. Negative: Wheezing, Hoarseness - Allergies/Home Medications Allergies/Adverse Reactions: Allergies Allergy/AdvReac Type Severity Reaction Status Date / Time azithromycin Allergy Severe GI Upset Verified 06/12/17 13:02 cephalexin Allergy Severe Rash Verified 06/12/17 13:02 clarithromycin [From Biaxin] Allergy Severe Rash Verified 06/12/17 13:02 codeine Allergy Severe GI Upset Verified 06/12/17 13:02 erythromycin base Allergy Severe GI Upset Verified 06/12/17 13:02 Penicillins Allergy Unknown Unknown Verified 06/12/17 13:02 Reaction Details MULTIPLE ALLERGIES Allergy Severe See Comment Uncoded 06/12/17 13:02 Home Medications: Home Medications Albuterol/Ipratropium NEB.SRIDHAR* [Duoneb (Albuterol 2.5 MG/Ipratropium 0.5 MG)] 1 inh Q6HR PRN 06/12/17 [History Confirmed 06/12/17] Budesonide/Formote 160/4.5(NF) [Symbicort 160/4.5 (NF)] 2 puff BID 06/12/17 [ History Confirmed 06/12/17] Citalopram TAB* [CeleXA TAB*] 60 mg PO DAILY 06/12/17 [History Confirmed ] ValACYclovir (*) [Valtrex 500 mg (*)] 1 tab DAILY 06/12/17 [History Confirmed ] PMH/Surg Hx/FS Hx/Imm Hx Respiratory History: Asthma - Surgical History Surgical History: Yes Surgery Procedure, Year, and Place: APPENDECTOMY, CHOLECYSTECTOMY, C-SECTIONX2 - Family History Known Family History: Positive: None Negative: Diabetes - Social History Alcohol Use: Rare Substance Use Type: None Smoking Status (MU): Former Smoker Type: Cigarettes Amount Used/How Often: 1/2-1 PPD Length of Time of Smoking/Using Tobacco: 25 YEARS Have You Smoked in the Last Year: Yes - Immunization History Most Recent Influenza Vaccination: no Review of Systems Constitutional: Fever, Chills, Fatigue Skin: Negative Eyes: Negative ENT: Sore Throat, Nasal Discharge Respiratory: Cough Cardiovascular: Negative Gastrointestinal: Negative Is Patient Immunocompromised?: No All Other Systems Reviewed And Are Negative: Yes Physical Exam Triage Information Reviewed: Yes Appearance: Well-Appearing, No Pain Distress, Well-Nourished Vital Signs: Initial Vital Signs Temp 99.5 F 06/12/17 12:52 Pulse 66 06/12/17 12:52 BP 107/69 06/12/17 12:52 Pulse Ox 100 06/12/17 12:52 Vital Signs Reviewed: Yes Eyes: Positive: Conjunctiva Clear ENT: Positive: Normal ENT inspection, Hearing grossly normal, Pharyngeal erythema Neck: Positive: Supple, Nontender, No Lymphadenopathy Respiratory: Positive: Chest non-tender, Lungs clear, Normal breath sounds Cardiovascular: Positive: RRR, No Murmur, Pulses Normal Skin Exam: Normal Throat Pain/Nasal Course/Dx - Differential Dx/Diagnosis Provider Diagnoses: pharyngitis Discharge - Discharge Plan Condition: Stable Disposition: HOME Patient Education Materials: Pharyngitis (ED) Referrals: Elvia Decker MD [Primary Care Provider] - If Needed Additional Instructions: negative Rapid strep viral pharyngitis
== END 2017-06-12 13:45 | disposition home or self-care (01) ==
LOC: UCCORT 11:38
DX: J02.9 Acute pharyngitis, unspecified (principal); J45.909 Unspecified asthma, uncomplicated; Z87.891 Personal history of nicotine dependence
CPT/HCPCS: 87651; 99211; G0463

== ENCOUNTER 2017-06-15 13:06 | Emergency (ER) | payer OTHER ==
[2017-06-15 14:15] VITALS: BP 103/70
--- NOTE | 2017-06-15 14:48 | UC ---
Throat Pain/Nasal Teto HPI - HPI Summary HPI Summary: 47 yo female had the fu about 5 weeks ago sore throat x 2 weeks left sided pain (-) strep test and normal cbc pain increasing - History of Current Complaint Chief Complaint: UCRespiratory Stated Complaint: SORE THROAT RECHECK Time Seen by Provider: 06/15/17 14:29 Hx Obtained From: Patient Hx Last Menstrual Period: 06/09/17 Onset/Duration: Gradual Onset, Lasting Weeks Severity: Mild Pain Intensity: 2 Pain Scale Used: 0-10 Numeric Associated Signs & Symptoms: Positive: Fever - at times - Epiglottits Risk Factors Epiglottis Risk Factors: Negative - Allergies/Home Medications Allergies/Adverse Reactions: Allergies Allergy/AdvReac Type Severity Reaction Status Date / Time azithromycin Allergy Severe GI Upset Verified 06/12/17 13:02 cephalexin Allergy Severe Rash Verified 06/12/17 13:02 clarithromycin [From Biaxin] Allergy Severe Rash Verified 06/12/17 13:02 codeine Allergy Severe GI Upset Verified 06/12/17 13:02 erythromycin base Allergy Severe GI Upset Verified 06/12/17 13:02 Penicillins Allergy Unknown Unknown Verified 06/12/17 13:02 Reaction Details MULTIPLE ALLERGIES Allergy Severe See Comment Uncoded 06/12/17 13:02 Home Medications: Home Medications Mometasone/Formoter 100/5 MDI* [Dulera 100/5 MDI*] 2 puff INH BID 06/15/17 [ History Confirmed 06/15/17] PMH/Surg Hx/FS Hx/Imm Hx Previously Healthy: Yes Respiratory History: Asthma, Bronchitis Psychological History: Depression - Surgical History Surgical History: Yes Surgery Procedure, Year, and Place: APPENDECTOMY, CHOLECYSTECTOMY, C-SECTIONX2 - Family History Known Family History: Positive: Hypertension Negative: Diabetes - Social History Alcohol Use: Rare Substance Use Type: None Smoking Status (MU): Former Smoker Type: Cigarettes Amount Used/How Often: 1/2-1 PPD Length of Time of Smoking/Using Tobacco: 25 YEARS Have You Smoked in the Last Year: Yes - Immunization History Most Recent Influenza Vaccination: no Review of Systems Constitutional: Negative Skin: Negative Eyes: Negative ENT: Sore Throat Respiratory: Negative Cardiovascular: Negative Gastrointestinal: Negative Genitourinary: Negative Motor: Negative Neurovascular: Negative Musculoskeletal: Negative Neurological: Negative Psychological: Negative Is Patient Immunocompromised?: No All Other Systems Reviewed And Are Negative: Yes Physical Exam Triage Information Reviewed: Yes Appearance: Well-Appearing, No Pain Distress, Well-Nourished Vital Signs: Initial Vital Signs Temp 99.5 F 06/15/17 14:04 Pulse 73 06/15/17 14:04 Resp 20 06/15/17 14:04 BP 103/70 06/15/17 14:04 Pulse Ox 100 06/15/17 14:04 Vital Signs Reviewed: Yes Eyes: Positive: Conjunctiva Clear ENT: Positive: Pharyngeal erythema, Tonsillar swelling, Tonsillar exudate - left tonsil only, Uvula midline. Negative: Trismus, Muffled voice, Hoarse voice Dental Exam: Normal Neck: Positive: Enlarged Nodes @ - mild anterior and post cervical nodes Respiratory: Positive: Lungs clear, Normal breath sounds, No respiratory distress Cardiovascular: Positive: RRR, No Murmur Abdominal Exam: Normal Abdomen Description: Positive: No Organomegaly Bowel Sounds: Positive: Present Musculoskeletal Exam: Normal Neurological Exam: Normal Psychological Exam: Normal Skin Exam: Normal Throat Pain/Nasal Course/Dx - Course Course Of Treatment: advise that if symptoms persist she may need to see an ENT - Differential Dx/Diagnosis Provider Diagnoses: pharyngo-tonsillitis Discharge - Discharge Plan Condition: Stable Disposition: HOME Patient Education Materials: Tonsillitis (ED) Referrals: Elvia Decker MD [Primary Care Provider] - 4 Days Additional Instructions: throat culture pending mono test pending recheck with your provider early this week
--- NOTE | 2017-06-16 09:41 | UC ---
- Progress Note Progress Note: + monospot. Dr Burris's note is reviewed. noted to have left sided pain as well -please call pt to notify. this is a self limiting disease. she is contagious. She should refrain from any sports/physical activity as she needs to have her spleen checked b/c risk of rupture. she should f/u with PCP for this early this week. -fluids, rest supportive treatment
== END 2017-06-15 15:04 | disposition home or self-care (01) ==
LOC: UCCORT 13:06
DX: J02.9 Acute pharyngitis, unspecified (principal); J45.909 Unspecified asthma, uncomplicated; R76.0 Raised antibody titer; Z88.1 Allergy status to other antibiotic agents; Z88.0 Allergy status to penicillin; Z88.8 Allergy status to other drugs, medicaments and biological substances
CPT/HCPCS: 36415; 86308; 87070; 99211; G0463

== ENCOUNTER 2017-07-04 23:42 | Emergency (ER) | payer OTHER ==
[2017-07-05] MEDS ORDERED: Diazepam SYRINGE* 5 MG/ML 2 ML SYRINGE (10 MG total) IV ONE (00:30)
[2017-07-05] MEDS ORDERED: Ketorolac INJ* 30 MG/ML 1 ML VIAL IV PUSH ONE (00:31)
[2017-07-05] MEDS ORDERED: Dexamethasone IV* 4 MG/ML 1 ML (4 MG) IV SLOW PU ONE (00:36)
--- OUTSIDE RECORDS SUMMARY | 2017-07-05 00:39 | XMS REPORT ---
:1970 External Reference #:[id number] Author Organization [facility] Address [address] [facility]/[address] [place] [address] Phone [phone] Care Team Providers Name Role Phone Jennifer Garcia MD Care Team Information Screening Tech Unavailable Payers Type Date Identification Numbers Payment Provider Subscriber Commercial Effective: Policy Number: [id number] [facility] Jemma Romero 2010 PayID: [id number] [place] [address] [facility] Part B Effective: Policy Number: Medicaid/[facility] Jemma Fuentesamp 2005 [id number] [employer] PayID: [id number] [address] [place] [address] Problems Date Description Provider Status Onset: 11/03/2011 Tobacco user Yanira Ulloa [employer] Active Onset: 11/03/2011 Allergic rhinitis Brice Cordova [employer] Active Onset: 11/03/2011 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 Onset: 11/03/2011 Human papilloma virus infection Brice Cordova [employer] Active Onset: 11/03/2011 Vaginitis and vulvovaginitis Yanira Ulloa [employer] Resolved Resolved: 05/09/2012 Onset: 11/03/2011 Type 2 diabetes mellitus Brice Cordova [employer] Resolved Resolved: 05/09/2012 Onset: 11/03/2011 Otalgia Brice Cordova [employer] Resolved Resolved: 05/09/2012 Onset: 11/03/2011 Acute pharyngitis Brice Cordova [employer] Resolved Resolved: 05/09/2012 Onset: 11/03/2011 Neck pain Yanira Ulloa [employer] Resolved Resolved: 11/29/2016 Onset: 11/03/2011 Refractory migraine with aura Yanira Ulloa [employer] Resolved Resolved: 11/29/2016 Onset: 11/03/2011 Degeneration of lumbar intervertebral Yanira Ulloa [employer] Resolved disc Resolved: 11/29/2016 Onset: 11/03/2011 Degeneration of cervical Yanira Ulloa [employer] Resolved intervertebral disc Resolved: 11/29/2016 Onset: 11/03/2011 Contact dermatitis Brice Cordova [employer] Resolved Resolved: 11/29/2016 Onset: 11/03/2011 Non-neoplastic nevus Brice Cordova [employer] Resolved Resolved: 11/29/2016 Onset: 11/03/2011 Sprain of ligament of lumbosacral joint Brice Cordova [employer] Resolved Resolved: 11/29/2016 Onset: 11/03/2011 Chronic pancreatitis Brice Cordova [employer] Resolved Resolved: 11/29/2016 Onset: 11/03/2011 Verruca vulgaris Brice Cordova [employer] Resolved Resolved: 11/29/2016 Family History Date Family Member(s) Problem(s) Comments Children 5 Siblings None Grandchildren 3 Social History Type Date Description Comments Marital Status Legal Status: Cigarette Use Current Cigarette Smoker pt has been smoking since age 16 pt smokes ABOUT A PACK A DAY ETOH Use Rarely consumes alcohol Smoking Patient is a current smoker, smokes every day Daily Caffeine Does Not Consume Caffeine Tattoo/Piercing Tattoo Seat Belt/Car Seat Always uses seat belt Smoke Alarms Carbon Monoxide Detector: Yes Smoke Alarms Yes Allergies, Adverse Reactions, Alerts Date Description Reaction Status Severity Comments 09/06/2011 Biaxin active 09/06/2011 Zithromax active 09/06/2011 Codeine active 09/06/2011 Toradol active 09/06/2011 Shellfish active 05/08/2012 Dilaudid active 11/29/2016 Cephalexin active 11/29/2016 Levofloxacin active Medications Medication Date Status Form Strength Qnty SIG Indications Ordering Provider Dulera Active Aerosol 100-5mcg/A 13gm 2 puffs J44.9 Jose, 018 ct twice a hansa Rondon M.D. Prevacid Active Capsules 30mg 180cap 1 by B00.2 Jose, 018 DR tasha Rodriguez, every M.D. day Xanax Active Tablets 0.5mg 45tabs 1 tab by F41.9 Jose, 018 mouth Jennifer Rodriguez, every 4 M.D. hours as needed Citalopram Active Tablets 40mg 90tabs 1 / F33.9 Jose, Hydrobromide 018 tab by Jennifer Rodriguez mouth M.D. every day[place] [place] F41.9 Zyrtec Allergy 06/18/2017 Active Tablets 10mg 30tabs 1 by mouth J30.9 Jose, every day as Ahmad needed Rick Rodriguez. Nasonex 06/18/2017 Active Suspension 50mcg/ 17gm 1 intranasal J30.9 Jose, Act twice a day Jennifer Rodriguez M.D. Albuterol 03/26/2017 Active Nebulizer (2.5mg 180ml use with Jose, Sulfate /3ML) nebulizer q4 Ahmad 0.083% hours as M., needed for M.D. cough/sob Famciclovir 03/19/2017 Active Tablets 500mg 90tabs 1 take by A60.00 Jose mouth tablet Ahmad as needed Joselyn Rodriguez Omeprazole 04/11/2017 - Hx Capsules DR 40mg 90caps 1 by mouth B00.2 Jose, 06/18/2017 every day Jennifer Rodriguez M.D. Benzonatate 03/28/2017 - Hx Capsules 200mg 60caps tab one by R05 Jose, 04/07/2017 mouth three Ahmad times a day Joselyn Rodriguez Protonix 03/19/2017 - Hx Tablets DR 40mg 90tabs 1 by mouth K21.0 Jose, 03/20/2017 every day Jennifer Rodriguez M.D. Rizatriptan 03/19/2017 - Hx Tablets 10mg 15tabs 1 tab Under Jose, Benzoate 06/14/2017 Dispers Tongue then Ahmad can repeat M., in q2 hours M.DBrinda as needed for migraine Doxycycline 11/29/2016 - Hx Capsules 100mg 28caps tab one by J04.0 Jose, Monohydrate 12/13/2016 mouth twice Ahmad a day Joselyn Rodriguez Metronidazole 05/06/2014 - Hx Gel 0.75% 10cc Apply AD 616.10 Jose, 05/06/2014 Directed Jennifer Rodriguez M.D. Metronidazole 05/06/2014 - Hx Tablets 250mg 40tabs tab one by 616.10 Jose, 05/08/2014 mouth four Ahmad times a day Joselyn Rodriguez Cephalexin 02/13/2014 - Hx Capsules 500mg 30caps tab one by 465.8 Jose , 02/23/2014 mouth three Ahmad times a day Joselyn Rodriguez Cephalexin 08/26/2013 - Hx Tablets 500mg 30tabs 1 by mouth 682.6 Jose, 09/05/2013 Three Times Ahmad a day Joselyn Rodriguez Cephalexin 09/11/2012 - Hx Capsules 500mg 30caps tab one po 382.9 Jose , 09/22/2012 tid Jennifer Rodriguez M.D. Vistaril 04/24/2012 - Hx Capsules 25mg 60caps One PO Q 4 708.9 Jose, 05/08/2012 HR prn Jennifer Rodriguez M.D. Acyclovir 04/24/2012 - Hx Tablets 800mg 90tabs 1 by mouth 708.9 Jose, 02/04/2014 three times Ahmad a day as naty Rodriguez M.D. Ceftin 02/27/2012 - Hx Tablets 500mg 20tabs 1 twice a Jose, 03/08/2012 day x 10days Jennifer Rodriguez M.D. Levaquin 02/26/2012 - Hx Tablets 500mg 10tabs 1 po qd x 10 Jose, 02/27/2012 days Jennifer Rodriguez M.D. Keflex 02/14/2012 - Hx Capsules 500mg 40caps 1 po qid x Jose, 02/27/2012 10 days Jennifer Rodriguez M.D. Please Perform 01/11/2012 - Hx Cervical Jose, CT Without 04/24/2012 Neck, Ahmad Contrast Pelvis, And Jennifer Lumbar----DX Joselyn : Chronic Pain thank you Protonix 10/23/2011 - Hx Tablets 40mg 30tabs 1 by mouth 530.11 [facility] , 05/08/2012 every day Jennifer Rodriguez M.D. Metrogel-Vagina 10/11/2011 - Hx Gel 0.75% 1pack use as 616.10 [facility], l 02/13/2013 directedx 5 Jennifer Rodriguez M.D. Prevacid 10/11/2011 - Hx Capsules 30mg 30caps 1 po qd 346.01 [facility], 10/23/2011 Jennifer Rodriguez M.D. Percocet 10/11/2011 - Hx Tablets 10-325 240tabs 2 tabs by 722.52 [facility], 04/24/2012 mg mouth four Ahmad times a day M., as needed Joselyn Vital Signs Date Vital Result Comment 07/04/2017 BP Systolic 110 mmHg BP Diastolic 64 mmHg Height 61 inches 5'1" Weight 137.00 lb BMI (Body Mass Index) 25.9 kg/m2 Heart Rate 73 /min Respiratory Rate 18 /min 06/21/2017 BP Systolic 114 mmHg BP Diastolic 68 mmHg Height 61 inches 5'1" Weight 137.00 lb BMI (Body Mass Index) 25.9 kg/m2 Heart Rate 78 /min Respiratory Rate 16 /min 06/18/2017 BP Systolic 118 mmHg BP Diastolic 62 mmHg Height 61 inches 5'1" Weight 137.00 lb BMI (Body Mass Index) 25.9 kg/m2 Heart Rate 84 /min Respiratory Rate 16 /min 04/11/2017 BP Systolic 116 mmHg BP Diastolic 62 mmHg Height 61 inches 5'1" Weight 135.00 lb BMI (Body Mass Index) 25.5 kg/m2 Heart Rate 111 /min Respiratory Rate 18 /min 03/28/2017 BP Systolic 100 mmHg BP Diastolic 68 mmHg Height 61 inches 5'1" Weight 135.00 lb BMI (Body Mass Index) 25.5 kg/m2 Heart Rate 75 /min Body Temperature 97.5 F Respiratory Rate 16 /min 03/19/2017 BP Systolic 110 mmHg BP Diastolic 72 mmHg Height 61 inches 5'1" Weight 135.00 lb BMI (Body Mass Index) 25.5 kg/m2 Heart Rate 86 /min Respiratory Rate 16 /min 12/11/2016 BP Systolic 110 mmHg BP Diastolic 72 mmHg Height 61 inches 5'1" Weight 132.00 lb BMI (Body Mass Index) 24.9 kg/m2 Heart Rate 76 /min Respiratory Rate 16 /min 12/04/2016 BP Systolic 104 mmHg BP Diastolic 62 mmHg Height 61 inches 5'1" Weight 132.00 lb BMI (Body Mass Index) 24.9 kg/m2 Heart Rate 67 /min Respiratory Rate 18 /min 11/29/2016 BP Systolic 118 mmHg BP Diastolic 64 mmHg Height 61 inches 5'1" Weight 132.00 lb BMI (Body Mass Index) 24.9 kg/m2 Heart Rate 65 /min Body Temperature 98.3 F Respiratory Rate 16 /min 05/06/2014 BP Systolic 108 mmHg BP Diastolic 63 mmHg Height 61 inches 5'1" Weight 124.00 lb BMI (Body Mass Index) 23.4 kg/m2 Heart Rate 62 /min Respiratory Rate 14 /min 02/13/2014 BP Systolic 126 mmHg BP Diastolic 70 mmHg Height 61 inches 5'1" Weight 121.00 lb BMI (Body Mass Index) 22.9 kg/m2 Heart Rate 72 /min Body Temperature 97.4 F Respiratory Rate 16 /min 02/04/2014 BP Systolic 122 mmHg BP Diastolic 70 mmHg Height 61 inches 5'1" Weight 121.00 lb BMI (Body Mass Index) 22.9 kg/m2 Heart Rate 80 /min Respiratory Rate 16 /min 09/03/2013 BP Systolic 126 mmHg BP Diastolic 82 mmHg Height 61 inches 5'1" Weight 120.00 lb BMI (Body Mass Index) 22.7 kg/m2 Heart Rate 72 /min Respiratory Rate 16 /min 08/26/2013 BP Systolic 99 mmHg BP Diastolic 63 mmHg Height 61 inches 5'1" Weight 120.00 lb BMI (Body Mass Index) 22.7 kg/m2 Heart Rate 67 /min Body Temperature 97.2 F Respiratory Rate 18 /min 08/20/2013 BP Systolic 118 mmHg BP Diastolic 68 mmHg Height 61 inches 5'1" Weight 122.00 lb BMI (Body Mass Index) 23.0 kg/m2 Heart Rate 72 /min Respiratory Rate 16 /min 08/06/2013 BP Systolic 109 mmHg BP Diastolic 69 mmHg Height 61 inches 5'1" Weight 122.00 lb BMI (Body Mass Index) 23.0 kg/m2 Heart Rate 70 /min Respiratory Rate 18 /min 03/19/2013 BP Systolic 106 mmHg BP Diastolic 67 mmHg Height 61 inches 5'1" Weight 119.00 lb BMI (Body Mass Index) 22.5 kg/m2 Heart Rate 84 /min Respiratory Rate 18 /min 03/04/2013 BP Systolic 105 mmHg BP Diastolic 71 mmHg Height 61 inches 5'1" Weight 121.00 lb BMI (Body Mass Index) 22.9 kg/m2 Heart Rate 69 /min Respiratory Rate 20 /min 02/21/2013 BP Systolic 105 mmHg BP Diastolic 72 mmHg Height 61 inches 5'1" Weight 120.00 lb BMI (Body Mass Index) 22.7 kg/m2 Heart Rate 72 /min Body Temperature 96.8 F Respiratory Rate 18 /min 01/08/2013 BP Systolic 101 mmHg BP Diastolic 68 mmHg Height 61 inches 5'1" Weight 119.00 lb BMI (Body Mass Index) 22.5 kg/m2 Heart Rate 72 /min Body Temperature 97.6 F Respiratory Rate 16 /min 09/11/2012 BP Systolic 118 mmHg BP Diastolic 64 mmHg Height 61 inches 5'1" Weight 120.00 lb BMI (Body Mass Index) 22.7 kg/m2 Heart Rate 65 /min Respiratory Rate 20 /min 05/08/2012 BP Systolic 112 mmHg BP Diastolic 70 mmHg Height 61 inches 5'1" Weight 120.00 lb BMI (Body Mass Index) 22.7 kg/m2 Heart Rate 67 /min Body Temperature 97.5 F Respiratory Rate 20 /min 04/24/2012 BP Systolic 102 mmHg BP Diastolic 70 mmHg Height 61 inches 5'1" Weight 117.00 lb BMI (Body Mass Index) 22.1 kg/m2 Heart Rate 66 /min Body Temperature 97.7 F Respiratory Rate 16 /min 04/02/2012 BP Systolic 112 mmHg BP Diastolic 70 mmHg Height 61 inches 5'1" Weight 120.00 lb BMI (Body Mass Index) 22.7 kg/m2 Heart Rate 76 /min Respiratory Rate 16 /min 02/26/2012 BP Systolic 110 mmHg BP Diastolic 70 mmHg Height 61 inches 5'1" Weight 124.00 lb BMI (Body Mass Index) 23.4 kg/m2 Heart Rate 76 /min Respiratory Rate 20 /min 02/14/2012 BP Systolic 112 mmHg BP Diastolic 60 mmHg Height 61 inches 5'1" Weight 123.00 lb BMI (Body Mass Index) 23.2 kg/m2 Heart Rate 80 /min Respiratory Rate 16 /min 01/03/2012 BP Systolic 124 mmHg BP Diastolic 76 mmHg Height 61 inches 5'1" Weight 128.00 lb BMI (Body Mass Index) 24.2 kg/m2 Heart Rate 76 /min Respiratory Rate 16 /min 10/11/2011 BP Systolic 139 mmHg BP Diastolic 91 mmHg Height 61 inches 5'1" Weight 122.00 lb BMI (Body Mass Index) 23.0 kg/m2 Heart Rate 73 /min Last Menstrual Period 0 Respiratory Rate 15 /min 09/06/2011 Height 61 inches 5'1" Weight 122.00 lb BMI (Body Mass Index) 23.0 kg/m2 Respiratory Rate 15 /min Results Test Date Test Result H/L Range Note CBC Auto Diff 06/18/2017 White Blood Count 5.4 10^3/uL 3.5-10.8 Red Blood Count 3.86 10^6/uL Low 4.0-5.4 Hemoglobin 12.6 g/dL 12.0-16.0 Hematocrit 37 % 35-47 Mean Corpuscular Volume 96 fL 80-97 Mean Corpuscular Hemoglobin 33 pg High 27-31 Mean Corpuscular HGB Conc 34 g/dL 31-36 Red Cell Distribution Width 14 % 10.5-15 Platelet Count 221 10^3/uL 150-450 Mean Platelet Volume 9 um3 7.4-10.4 Abs Neutrophils 3.0 10^3/uL 1.5-7.7 Abs Lymphocytes 2.1 10^3/uL 1.0-4.8 Abs Monocytes 0.4 10^3/uL 0-0.8 Abs Eosinophils 0 10^3/uL 0-0.6 Abs Basophils 0 10^3/uL 0-0.2 Abs Nucleated RBC 0 10^3/uL Granulocyte % 54.2 % 38-83 Lymphocyte % 37.9 % 25-47 Monocyte % 6.6 % 0-7 Eosinophil % 0.9 % 0-6 Basophil % 0.4 % 0-2 Nucleated Red Blood Cells % 0 Comp Metabolic Panel 06/18/2017 Sodium 136 mmol/L 133-145 Potassium 4.1 mmol/L 3.5-5.0 Chloride 103 mmol/L 101-111 Co2 Carbon Dioxide 27 mmol/L 22-32 Anion Gap 6 mmol/L 2-11 Glucose 128 mg/dL High 70-100 Blood Urea Nitrogen 9 mg/dL 6-24 Creatinine 0.77 mg/dL 0.51-0.95 BUN/Creatinine Ratio 11.7 8-20 Calcium 9.6 mg/dL 8.6-10.3 Total Protein 6.9 g/dL 6.4-8.9 Albumin 4.4 g/dL 3.2-5.2 Globulin 2.5 g/dL 2-4 Albumin/Globulin Ratio 1.8 1-3 Total Bilirubin 0.40 mg/dL 0.2-1.0 Alkaline Phosphatase 37 U/L 34-104 Alt 18 U/L 7-52 Ast 19 U/L 13-39 Egfr Non- 80.4 >60 Egfr 103.3 >60 1 Connective Tissue Panel 06/18/2017 Anti-Nuclear Antibody 0.2 U 2 Cyclic Citrullinated Peptide <15.6 U 3 Interpretation See Comment 4 Aliza Kruse Comprehensive 06/18/2017 Ebv Capsid Ag IgG Ab Positive Negative Ebv Capsid Ag IgM Ab Positive Negative Aliza-Kruse Nuclear Antigen Positive Negative Aliza-Kruse Virus Interp See Comment 5 Laboratory test 06/18/2017 Erythrocyte Sed Rate 15 mm/Hr High 0-14 6 finding Hepatitis Acute Panel 06/18/2017 Hepatitis B Surface Nonreactive Nonreactive Antigen Hepatitis A AB IgM Nonreactive Nonreactive Hepatitis C Antibody Nonreactive Nonreactive Hepatitis B Core IgM Nonreactive Nonreactive Laboratory test finding 06/18/2017 Lyme Disease Serology Negative Negative 7 Monospot Negative Negative 8 Rheumatoid Factor <10 IU/mL 0-14 9 TSH (Thyroid Stimulating Horm) 0.82 mcIU/mL 0.34-5.60 10 Free T4 0.95 ng/dL 0.61-1.12 11 Tetanus Toxoid Igg Antibody,S 06/18/2017 Tetanus Toxoid IgG Antibody Positive 12 Tetanus Toxoid IgG Value 0.26 IU/mL 13 Laboratory test finding 06/18/2017 Haemophilus influenzae B 2.13 mg/L &gt ;=0.15 14 IgG Lipid Profile 03/19/2017 Triglycerides 100 mg/dL 15 (Trig/Chol/HDL) Cholesterol 139 mg/dL 16 HDL Cholesterol 55.4 mg/dL 17 LDL Cholesterol 64 mg/dL 18 Laboratory test finding 03/19/2017 CRP High Sensitivity < 0.20 mg/L 19 Hemoglobin A1c (Glyco HGB) 5.5 % 4.0-5.6 20 Rheumatoid Factor <15 IU/mL <15 21 TSH (Thyroid Stim Horm) 0.65 mcIU/mL 0.34-5.60 22 Comp Metabolic Panel 03/19/2017 Sodium 138 mmol/L 133-145 Potassium 4.0 mmol/L 3.5-5.0 Chloride 106 mmol/L 101-111 Co2 Carbon Dioxide 27 mmol/L 22-32 Anion Gap 5 mmol/L 2-11 Glucose 92 mg/dL 70-100 Blood Urea Nitrogen 8 mg/dL 6-24 Creatinine 0.72 mg/dL 0.51-0.95 BUN/Creatinine Ratio 11.1 8-20 Calcium 9.1 mg/dL 8.6-10.3 Total Protein 6.4 g/dL 6.4-8.9 Albumin 4.2 g/dL 3.2-5.2 Globulin 2.2 g/dL 2-4 Albumin/Globulin Ratio 1.9 1-3 Total Bilirubin 0.40 mg/dL 0.2-1.0 Alkaline Phosphatase 33 U/L Low 34-104 Alt 11 U/L 7-52 Ast 15 U/L 13-39 Egfr Non- 87.2 >60 Egfr 112.1 >60 23 CBC Auto Diff 03/19/2017 White Blood Count 5.5 10^3/uL 3.5-10.8 Red Blood Count 4.00 10^6/uL 4.0-5.4 Hemoglobin 13.1 g/dL 12.0-16.0 Hematocrit 39 % 35-47 Mean Corpuscular Volume 97 fL 80-97 Mean Corpuscular Hemoglobin 33 pg High 27-31 Mean Corpuscular HGB Conc 34 g/dL 31-36 Red Cell Distribution Width 13 % 10.5-15 Platelet Count 199 10^3/uL 150-450 Mean Platelet Volume 9 um3 7.4-10.4 Abs Neutrophils 2.7 10^3/uL 1.5-7.7 Abs Lymphocytes 2.0 10^3/uL 1.0-4.8 Abs Monocytes 0.4 10^3/uL 0-0.8 Abs Eosinophils 0.2 10^3/uL 0-0.6 Abs Basophils 0.1 10^3/uL 0-0.2 Abs Nucleated RBC 0 10^3/uL Granulocyte % 49.9 % 38-83 Lymphocyte % 36.1 % 25-47 Monocyte % 7.9 % 1-9 Eosinophil % 4.2 % 0-6 Basophil % 1.9 % 0-2 Nucleated Red Blood Cells % 0 Liver Function Tests 05/12/2014 Total Protein 6.8 g/dL 6.4-8.2 Albumin 3.4 g/dL 3.4-5.0 Globulin 3.4 g/dL 1.9-4.3 Alb/Glob 1.0 ratio Bilirubin,Total 0.2 mg/dL 0.2-1.0 Bilirubin,Direct < 0.1 mg/dL 0.0-0.2 Bilirubin,Indirect 0.1 mg/dL 0.0-0.9 Sgot/Ast 19 U/L 15-37 SGPT/Alt 22 U/L 12-78 Alkaline Phosphatase 58 U/L 45-117 Basic Metabolic Panel 05/12/2014 Glucose 100 mg/dL 74-106 BUN 9 mg/dL 7-18 Creatinine 0.9 mg/dL 0.6-1.3 Glom Filtration Rate, Estimate >60 mL/min >60 If >60 mL/min >60 24 BUN/Creat 10.0 ratio Sodium 143 mmol/L 136-145 Potassium 3.6 mmol/L 3.5-5.1 Chloride 109 mmol/L High 98-107 Carbon Dioxide 27 mmol/L 21-32 Anion Gap 11 mEq/L 8-16 Calcium 8.7 mg/dL 8.5-10.1 Laboratory test finding 05/12/2014 Lipase 103 U/L 73-393 CBS W/Automated Diff 05/12/2014 White Blood Count 6.5 K/uL 3.1-10.7 Red Blood Count 3.58 M/uL Low 3.90-5.40 Hemoglobin 12.4 gm/dL 11.6-15.8 Hematocrit 34.8 % Low 36.0-46.1 Mean Cell Volume 97.2 fl 80.9-99.0 Mean Corpuscular HGB 34.6 pg High 25.9-32.7 Mean Corpuscular HGB Conc 35.6 g/dL High 30.8-34.3 Platelet Count 187 K/uL 155-360 Red Cell Distri Width SD 40.4 fl 3-47 Red Cell Distri Width %CV 11.7 % 11.7-14.4 Mean Platelet Volume 10.2 fL 8.9-12.4 Neut% 47.0 % 40.4-72.8 Lymph % 41.3 % 17.0-46.1 Rapides % 8.3 % 4.3-13.2 Eo% 2.6 % 0.0-6.6 Bas% 0.8 % 0.0-1.1 Neut# 3.05 K/uL 1.0-7.0 Lymph # 2.68 K/uL 0.8-3.4 Rapides # 0.54 K/uL 0.3-0.9 Eos # 0.17 K/uL 0.0-0.5 Baso # 0.05 K/uL 0.0-0.1 Laboratory test finding 05/12/2014 Urine HCG (Qualitative) NEGATIVE Negative 25 Urine Screen 05/12/2014 Urine Screen See Note 26 Urinalysis With 05/12/2014 Urine Color YELLOW Yellow Microscopic Urine Clarity CLEAR Clear Urine Glucose - Dipstick NEGATIVE mg/dL Negative Urine Bilirubin - Dipstick NEGATIVE Negative Urine Ketone NEGATIVE mg/dL Negative Urine Specific [place] <=1.005 Low 1.010-1.030 Urine Blood LARGE High Negative Urine PH 5.5 Low 6.5-7.5 Urine Protein - Dipstick NEGATIVE mg/dL Negative Urine Urobilinogen - Dipstick 0.2 E.U./dL 0.2-1.0 Urine Nitrite - Dipstick NEGATIVE Negative Urine Leuk Esterase NEGATIVE Negative Urine RBC 2-5 rbc/hpf 0-7 Urine WBC NONE SEEN wbc/hpf 0-7 Urine Epithelial Cells FEW NONESEEN/lpf Urine Bacteria VERY FEW NONESEEN CMP 02/04/2014 Sodium 140 mmol/L (136-145) Potassium 3.9 mmol/L (3.6-5.2) Chloride 109 mmol/L High (100-108) Co2 28 mmol/L (22-31) Anion Gap 3 mmol/L Low (7-16) Urea Nitrogen 10 mg/dL (7-24) Creatinine 0.8 mg/dL (0.6-1.0) BUN/Creat Ratio 12.5 RATIO (10.0-20.0) Glucose 94 mg/dL (70-99) Calcium 8.8 mg/dL (8.4-10.2) Total Protein 7.0 g/dL (6.4-8.2) Albumin 4.1 g/dL (3.5-4.6) Globulin 2.9 g/dL (2.7-4.3) Alb/Glob Ratio 1.4 RATIO Alkaline Phosphatase 41 U/L Low (45-117) Bilirubin,Total 0.3 mg/dL (0.0-1.0) Ast (Sgot) 18 U/L (11-39) Alt (SGPT) 20 U/L (12-78) GFR 83 ml/min/1.73m2 (>59) GFR ( Amer) >90 ml/min/1.73m2 (>59) GFR Interpretation <SEE NOTE> 27 Cardiolipin Antibodies 02/04/2014 Cardiolipin Iga @ 1 APL (0-12) 28 Cardiolipin Igg @ 4 GPL (0-15) 29 Cardiolipin Igm @ 12 MPL (0-12) 30 CBC With Diff 02/04/2014 WBC 6.2 10*3/uL (4.1-11.0) RBC 3.92 10*6/uL Low (4.00-5.40) HGB 13.3 g/dL (12.0-16.0) HCT 38.1 % (36.0-47.0) MCV 97.1 fL High (80.0-95.0) MCH 33.9 pg High (27.0-32.0) MCHC 34.9 g/dL (32.0-36.0) RDW 12.2 % (10.5-14.5) PLT 174 10*3/uL (150-450) MPV 9.0 fL (7.1-10.7) Neut % 45.1 % (35.0-75.0) Lymph % 43.0 % (16.0-52.0) Rapides % 8.3 % High (0.0-8.0) Eos % 2.5 % (0.0-5.0) Baso % 1.1 % (0.0-4.0) Neut # 2.8 10*3/uL (1.8-7.7) Lymph # 2.7 10*3/uL (1.2-4.8) Rapides # 0.5 10*3/uL (0.0-0.8) Eos # 0.2 10*3/uL (0.0-0.5) Baso # 0.1 10*3/uL (0.0-0.2) Laboratory test finding 02/04/2014 Naomy SCRN W/ Reflex @ NEGATIVE (Neg) Rheumatoid Factor @ <15 IU/mL (0-15) 25 Hydroxy Vit D @ 64 ng/mL (31-100) 31 Laboratory test finding 02/04/2014 Ssa Igg AB @ NEGATIVE INDEX (Neg) SSB Igg AB @ NEGATIVE INDEX (Neg) Anti-Dna(DS) AB @ 1 IU (0-4) 32 Dna Single Strand 23 EU High 33 Esr 5 mm/h (0-20) Laboratory test finding 08/20/2013 Surgical Pathology See Note 34, 35 CBC With Diff 08/20/2013 WBC 5.2 K/UL (4.1-11.0) RBC 3.89 M/UL Low (4.00-5.40) HGB 12.8 g/dL (12.0-16.0) HCT 39.1 % (36.0-47.0) MCV 100.3 FL High (80.0-95.0) MCH 33.0 pg High (27.0-32.0) MCHC 32.8 g/dL (32.0-36.0) RDW 12.4 % (10.5-14.5) PLT 171 K/UL (150-400) MPV 9.2 FL (7.1-10.7) Neut % 41.1 % (35.0-75.0) Lymph % 49.0 % (16.0-52.0) Rapides % 6.2 % (0-8.0) Eos % 2.8 % (0-5.0) Baso % 0.9 % (0-4.0) Neut # 2.2 K/UL (1.8-7.7) Lymph # 2.6 K/UL (1.2-4.8) Rapides # 0.3 K/UL (0-0.8) Eos # 0.1 K/UL (0-0.5) Baso # 0.0 K/UL (0-0.2) HIV 1/2 AB 08/20/2013 HIV 1/2 AB @ NEGATIVE (Neg) 36 Basic Metabolic Panel 03/04/2013 Glucose 74 mg/dL Low 76-115 BUN 10 mg/dL 5-23 Creatinine 0.9 mg/dL 0.5-1.4 Glom Filtration Rate, Estimate >60 mL/min >60 If >60 mL/min >60 37 BUN/Creat 11.1 ratio Sodium 141 mmol/L 136-145 Potassium 4.1 mmol/L 3.5-5.1 Chloride 108 mmol/L High 98-107 Carbon Dioxide 28 mEq/L 18-29 Anion Gap 9 mEq/L 8-16 Calcium 8.1 mg/dL Low 8.5-10.1 CBC W/Automated Diff 03/04/2013 White Blood Count 5.1 K/uL 3.1-10.7 Red Blood Count 3.66 M/uL Low 3.90-5.40 Hemoglobin 12.3 gm/dL 11.6-15.8 Hematocrit 36.0 % 36.0-46.1 Mean Cell Volume 98.4 fl 80.9-99.0 Mean Corpuscular HGB 33.6 pg High 25.9-32.7 Mean Corpuscular HGB Conc 34.2 g/dL 30.8-34.3 Platelet Count 188 K/uL 155-360 Red Cell Distri Width SD 43.3 fl 3-47 Red Cell Distri Width %CV 12.4 % 11.7-14.4 Mean Platelet Volume 11.0 fL 8.9-12.4 Neut% 44.2 % 40.4-72.8 Lymph % 43.9 % 17.0-46.1 [place] % 7.9 % 4.3-13.2 Eo% 2.8 % 0.0-6.6 Bas% 1.2 % High 0.0-1.1 Neut# 2.24 K/uL 1.0-7.0 Lymph # 2.22 K/uL 0.8-3.4 [place] # 0.40 K/uL 0.3-0.9 Eos # 0.14 K/uL 0.0-0.5 Baso # 0.06 K/uL 0.0-0.1 Laboratory test 03/04/2013 C-Reactive < 0.16 mg/L 0.00-3.00 38 finding Protein,Cardiac Sedimentation Rate 4 mm/hr 0-20 LDL Cholesterol Profile 03/04/2013 Cholesterol 119 mg/dL Low 120-200 Triglycerides 36 mg/dL 16-231 HDL Cholesterol 48 mg/dL 29-83 LDL-Cholesterol 64 mg/dL 62-185 Liver Function Tests 03/04/2013 Total Protein 6.6 g/dL 6.3-8.0 Albumin 3.9 g/dL 3.5-5.0 Globulin 2.7 g/dL 1.9-4.3 Alb/Glob 1.4 ratio Bilirubin,Total 0.4 mg/dL 0.2-1.2 Bilirubin,Direct 0.1 mg/dL 0.1-0.4 Bilirubin,Indirect 0.3 mg/dL 0.0-0.9 Sgot/Ast 15 U/L Low 16-40 SGPT/Alt 20 U/L Low 30-65 Alkaline Phosphatase 47 U/L Low 50-136 Laboratory test finding 03/04/2013 Thyroid Stim Hormone 0.87 uIU/mL 0.49- 4.67 Vitamin D,25-Hydroxy 56.5 ng/mL 30.0-100.0 39 Throat-Beta Strept 02/22/2013 Throat Beta Strep (SEE NOTE) 40 Culture Laboratory test finding 02/21/2013 ThinPrep Pap: See Note 41 Cervix/Endocx CBC W/Automated Diff 04/24/2012 White Blood Count 7.0 K/uL 3.1-10.7 Red Blood Count 4.01 M/uL 3.90-5.40 Hemoglobin 13.3 gm/dL 11.6-15.8 Hematocrit 37.8 % 36.0-46.1 Mean Cell Volume 94.3 fl 80.9-99.0 Mean Corpuscular HGB 33.2 pg High 25.9-32.7 Mean Corpuscular HGB Conc 35.2 g/dL High 30.8-34.3 Platelet Count 208 K/uL 155-360 Red Cell Distri Width SD 40.1 fl 3-47 Red Cell Distri Width %CV 11.8 % 11.7-14.4 Mean Platelet Volume 11.1 fL 8.9-12.4 Neut% 41.3 % 40.4-72.8 Lymph % 48.3 % High 17.0-46.1 [place] % 6.7 % 4.3-13.2 Eo% 3.3 % 0.0-6.6 Bas% 0.4 % 0.0-1.1 Neut# 2.91 K/uL 1.0-7.0 Lymph # 3.40 K/uL 0.8-3.4 [place] # 0.47 K/uL 0.3-0.9 Eos # 0.23 K/uL 0.0-0.5 Baso # 0.03 K/uL 0.0-0.1 Comprehensive Metabolic Panel 04/24/2012 Glucose 95 mg/dL 76-115 BUN 12 mg/dL 5-23 Creatinine 0.8 mg/dL 0.5-1.4 Glom Filtration Rate, Estimate >60 mL/min >60 If >60 mL/min >60 42 BUN/Creat 15.0 ratio Sodium 142 mmol/L 136-145 Potassium 4.0 mmol/L 3.5-5.1 Chloride 110 mmol/L High 98-107 Carbon Dioxide 27 mEq/L 18-29 Anion Gap 9 mEq/L 8-16 Calcium 9.1 mg/dL 8.5-10.1 Total Protein 7.4 g/dL 6.3-8.0 Albumin 4.4 g/dL 3.5-5.0 Globulin 3.0 g/dL 1.9-4.3 Alb/Glob 1.5 ratio Bilirubin,Total 0.2 mg/dL 0.2-1.2 Sgot/Ast 12 U/L Low 16-40 SGPT/Alt 19 U/L Low 30-65 Alkaline Phosphatase 47 U/L Low 50-136 Laboratory test 04/24/2012 Anti-Nuclear Antibodies Negative AU/mL Negative finding Direct Rheumatoid Factor Screen NEGATIVE Negative Allergens,Zone 1 04/24/2012 mRast Class (Text Only) See Note 43 D Pteronyssinus <0.08 Lysbj5oP/L D Farinae Mite <0.08 Hcrdg8hT/L Cat Hair/Dander <0.08 Mipbn1eS/L Dog Epithelia <0.08 Ltxyb4yE/L Bluegrass,[place] <0.08 Gbpzo4uJ/L Bermuda Grass <0.08 Dmmat2bT/L Bahia Grass <0.08 Rlaca2sW/L Cockroach,Mosotho <0.08 Azqut5gP/L Penicillium Not <0.08 Kphzp1yE/L Cladosporium Herbarum <0.08 Ycypj5zS/L Apergillis Fumigatus <0.08 Loygx2jY/L Mucor Racemosus <0.08 Pcvqf6aK/L Alternaria Tenuis <0.08 Mswyv1yX/L Stemphylium Bot <0.08 Mgdlr2cQ/L Birch,White <0.08 Wfqoj6qK/L Holder,White <0.08 Kbegd0eP/L Elm,Mosotho (White) <0.08 Puewj6eQ/L Santiago,White <0.08 Qfwud8jF/L Hazelnut Tree <0.08 Vveee6mS/L [place],White <0.08 Trrdc5zT/L [place],White <0.08 Loktl7vF/L [place]ountain <0.08 Qwtqa3rX/L Ragweed,Short/ <0.08 Gwlsr4qS/L Mugwort <0.08 Ylctc6pR/L Plantain,Citizen Of [place] <0.08 Iwjub5uX/L Pigweed,Rough <0.08 Exyrg6vV/L Sheep Akins (DO <0.08 Wxqwu8aX/L Maple ([place]) <0.08 Umobb9tM/L Nettle <0.08 Ogqru0iY/L 44 Laboratory test finding 04/24/2012 Sedimentation Rate 6 mm/hr 0-20 Laboratory test finding 01/03/2012 Hepatitis C AB @ NEGATIVE (Neg) 45 CMP 01/03/2012 Sodium 140 mmol/L (136-145) Potassium 4.0 mmol/L (3.6-5.2) Chloride 105 mmol/L (100-108) Co2 29 mmol/L (22-31) Anion Gap 6 mmol/L Low (7-16) Urea Nitrogen 11 mg/dL (7-24) Creatinine 0.7 mg/dL (0.6-1.0) BUN/Creat Ratio 15.7 RATIO (10.0-20.0) Glucose 110 mg/dL High (70-99) Calcium 9.1 mg/dL (8.4-10.2) Total Protein 7.2 g/dL (6.4-8.2) Albumin 4.2 g/dL (3.5-4.6) Globulin 3.0 g/dL (2.7-4.3) Alb/Glob Ratio 1.4 RATIO Alkaline Phosphatase 39 U/L Low (50-136) Bilirubin,Total 0.2 mg/dL (0.0-1.0) Ast (Sgot) 14 U/L (11-39) Alt (SGPT) 19 U/L Low (25-69) GFR >90 ML/MIN/1.73M2 (>59) GFR ( Amer) >90 ML/MIN/1.73M2 (>59) GFR Interpretation <SEE NOTE> 46 Laboratory test finding 01/03/2012 Progesterone @ 0.33 NG/ML 47 FSH/LH Evaluation 01/03/2012 FSH @ 3.8 MIU/ML 48 LH @ 8.4 MIU/ML 49 CBC With Diff 01/03/2012 WBC 7.1 K/UL (4.1-11.0) RBC 4.15 M/UL (4.00-5.40) HGB 14.0 GM/DL (12.0-16.0) HCT 40.0 % (36.0-47.0) MCV 96.4 FL High (80.0-95.0) MCH 33.6 pg High (27.0-32.0) MCHC 34.9 g/dL (32.0-36.0) RDW 12.2 % (10.5-14.5) PLT 211 K/UL (150-400) MPV 8.8 FL (7.1-10.7) Neut % 52.9 % (35.0-75.0) Lymph % 38.3 % (16.0-52.0) Rapides % 6.0 % (0-8.0) Eos % 2.2 % (0-5.0) Baso % 0.6 % (0-4.0) Neut # 3.7 K/UL (1.8-7.7) Lymph # 2.7 K/UL (1.2-4.8) Rapides # 0.4 K/UL (0-0.8) Eos # 0.2 K/UL (0-0.5) Baso # 0.0 K/UL (0-0.2) Laboratory test 01/03/2012 TSH,Ultrasensitive @ 0.753 mIU/L (0.360-4.170 ) finding Pap Plus HPV 09/06/2011 CoPathPlus HPV HR- LR- 50 1 Because ethnic data is not always readily available, this report includes an eGFR for both -Americans and non- Americans. The National Kidney Disease Education Program (NKDEP) does not endorse the use of the MDRD equation for patients that are not between the ages of 18 and 70, are , have extremes of body size, muscle mass, or nutritional status, or are non- or non-. According to the National Kidney Foundation, irrespective of diagnosis, the stage of the disease is based on the level of kidney function: Stage Description GFR(mL/min/1.73 m(2)) 1 Kidney damage with normal or decreased GFR 90 2 Kidney damage with mild decrease in GFR 60-89 3 Moderate decrease in GFR 30-59 4 Severe decrease in GFR 15-29 5 Kidney failure <15 (or dialysis) 2 REFERENCE VALUE <=1.0 (Negative) 3 REFERENCE VALUE <20.0 (Negative) 4 Tests for antibodies to dsDNA and MADY antigens are not performed automatically unless the NAOMY result is > or= 3.0 U. Studies performed at [facility] indicate that positive NAOMY results <3.0 U are rarely accompanied by positive second order tests. Test Performed by: [facility] - [address] [address] 5 RESULT: Results may suggest recovery or reactivation. ADDITIONAL INFORMATION In most populations, at least 90% of the adult population will have been infected with EBV sometime in the past and therefore, will be positive for anti-VCA/IgG and anti- EBNA. Antibodies to EBNA develop 6-8 weeks after primary infection and remain present for life. Presence of VCA/ IgM antibodies indicates recent primary infection with EBV. Test Performed by: [facility] - [address] [address] 6 [id number] Would you like an EBV if Monospot is Negative?: N 7 Serologic response to B. burgdorferi infection is not detected, but cannot rule out early infection during which low or undetectable antibody levels to B. burgdorferi may be present. If clinically indicated, a new serum specimen should be submitted in 7-14 days. Test Performed by: [facility] [place] [address] 8 [id number] Would you like an EBV if Monospot is Negative?: N 9 Performed by [facility], [address] [place] [address] [email or web address], Sandro Abdalla MD - Lab. Director Test Performed by: [facility] [address] [place] [address] 10 [id number] REFERENCE VALUE Vaccinated: Positive (>=0.01 IU/mL) Unvaccinated: Negative (< 0.01 IU/mL) 13 ADDITIONAL INFORMATION This test was developed and its performance characteristics determined by [facility] in a manner consistent with CLIA requirements. This test has not been cleared or approved by the U.S. Food and Drug Administration. Test Performed by: [facility] - [address] [address] 14 ADDITIONAL INFORMATION The minimum level of protective antibody in the normal population is 0.15 mg/L. However, the optimum antibody level to confer skilled nursing immunity is >=1.0 mg/L post vaccination. Test Performed by: [facility] [address] [place] [address] 15 Desirable: <150 Borderline High: 150-199 High: 200-499 Very High: >500 16 Desirable: <200 Borderline High: 200-239 High: >239 17 Low: <40 Desirable: 40-60 High: >60 18 Desirable: <100 Near Optimal: 100-129 Borderline High: 130-159 High: 160-189 Very High: >189 19 Low risk: <1.00 Average risk: 1.00-3.00 High risk: >3.00 20 Therapeutic target for the treatment of diabetes mellitus patients is <7% HBA1C, and in selective patients <6.0%. Please refer to [place] Diabetes Association diabetic care guidelines for further information. 21 Test Performed by: [facility] [address] [place] [address] 22 [id number] 23 Because ethnic data is not always readily available, this report includes an eGFR for both -Americans and non- Americans. The National Kidney Disease Education Program (NKDEP) does not endorse the use of the MDRD equation for patients that are not between the ages of 18 and 70, are , have extremes of body size, muscle mass, or nutritional status, or are non- or non-. According to the National Kidney Foundation, irrespective of diagnosis, the stage of the disease is based on the level of kidney function: Stage Description GFR(mL/min/1.73 m(2)) 1 Kidney damage with normal or decreased GFR 90 2 Kidney damage with mild decrease in GFR 60-89 3 Moderate decrease in GFR 30-59 4 Severe decrease in GFR 15-29 5 Kidney failure <15 (or dialysis) 24 Note: Persistent reduction for 3 months or more in an eGFR <60 mL/min/1.73 m2 defines CKD. Patients with eGFR values >/=60 mL/min/1.73 m2 may also have CKD if evidence of persistent proteinuria is present. The original MDRD equation for estimated GFR is not valid for patients less than 18 years of age. Additional information may be found at www.kdoqi.org. 25 FIRST MORNING SPECIMENS GENERALLY CONTAIN THE HIGHEST CONCENTRATION OF HCG AND ARE RECOMMENDED FOR EARLY DETECTION OF . 26 05/12/14 LAB.DWM Deleted by Reflex Group [facility] 27 NORMAL KIDNEY FUNCTION OR MILD DISEASE - GFR >OR=60 CHRONIC KIDNEY DISEASE - GFR 15 - 59 RENAL FAILURE - GFR <15 Est. GFR calculation based on the MDRD study equation, which assumes a steady state for creatinine. Est. GFR should not be used for medication dosing. 28 INTERPRETATION OF RESULTS: < 12 UNITS NEGATIVE 12 - 20 UNITS EQUIVOCAL > 20 UNITS POSITIVE The following result was obtained with the travayl QUANTA Lite ADÁN IgA III WILFREDO. Results obtained with other manufacturers' assay methods may not be used interchangeably. The magnitude of the reported IgA level cannot be correlated to an endpoint titer. 29 INTERPRETATION OF RESULTS: < 15 UNITS NEGATIVE 15 - 19 UNITS EQUIVOCAL 20 - 79 UNITS MOD POSITIVE > 79 UNITS HIGH POSITIVE The following result was obtained with the [employer]ero QUANTA Lite ADÁN IgG III WILFREDO. Results obtained with other manufacturers' assay methods may not be used interchangeably. The magnitude of the reported IgG levels cannot be correlated to an endpoint titer. 30 INTERPRETATION OF RESULTS: < 12 UNITS NEGATIVE 12 - 19 UNITS EQUIVOCAL 20 - 79 UNITS MOD POSITIVE > 79 UNITS HIGH POSITIVE The following result was obtained with the [employer] QUANTA Lite ADÁN IgM III WILFREDO. Results obtained with other manufacturers' assay methods may not be used interchangeably. The magnitude of the reported IgM level cannot be correlated to an endpoint titer. 31 A REVIEW OF THE LITERATURE SUGGESTS THE FOLLOWING RANGES FOR THE CLASSIFICATION OF 25-OH VITAMIN D STATUS: VITAMIN D STATUS 25-OH VITAMIN D DEFICIENCY <20 NG/ML INSUFFICIENCY 20-30 NG/ML SUFFICIENCY 31 - 100 NG/ML TOXICITY > 100 NG/ML A PEDIATRIC REFERENCE RANGE HAS NOT BEEN ESTABLISHED USING THIS METHOD. 32 IUs INTERPRETATION LESS THAN 5 NEGATIVE 5 TO 9 EQUIVOCAL GREATER THAN 9 POSITIVE 33 Reference range: 0 to 19 INTERPRETIVE INFORMATION: ssDNA Ab, IgG Less than 20 EU .........Normal 20 - 25 EU ............. Borderline positive Greater than 25 EU ..... Positive Performed by [facility], [address] [place] [address] [email or web address], Sonido Patel MD, Lab. Director 34 PT NOTIFIED OF RESULTS WILL SET UP WITH DERM IN [place] [facility] [address] [place] [address], [address] [place] [address] SURGICAL PATHOLOGY REPORT Name: Jemma Romero Pathology #: [id number] : 1970 (Age: 43) Sex: F Location: [facility] Rec. 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 The skin surface is smooth to finely wrinkled and slightly irregular with linton and linton to faint chowdhury mottled pigmentation. The specimen is bisected and submitted entirely. (1 block) Specimen B received in formalin and labeled "left breast" is a 0.6 x 0.5 cm linton to chowdhury portion of skin excised to a depth of approximately 0.1 cm. The skin surface is wrinkled to irregular with linton and linton to chowdhury mottled pigmentation. The specimen is bisected and submitted entirely. (1 block) jib / Diagnosis: A) SQUAMOUS CELL CARCINOMA IN SITU, LEFT CALF. THE PERIPHERAL MARGIN IS NEGATIVE IN THIS PLANE OF SECTION. B) SQUAMOUS CELL CARCINOMA IN SITU, LEFT BREAST. THE PERIPHERAL MARGIN IS NEGATIVE IN THIS PLANE OF SECTION. Reported: 08/22/2013 Electronic Signature cf Eric Loving MD [facility] ICD-9 Codes: 232.9 36 THIS INFORMATION HAS BEEN DISCLOSED TO YOU FROM CONFIDENTIAL RECORDS WHICH ARE PROTECTED BY STATE LAW. STATE LAW PROHIBITS YOU FROM MAKING ANY FURTHER DISCLOSURE OF THIS INFORMATION WITHOUT THE SPECIFIC WRITTEN CONSENT OF THE PERSON TO WHOM IT PERTAINS, OR OTHERWISE PERMITTED BY LAW. 37 Note: Persistent reduction for 3 months or more in an eGFR <60 mL/min/1.73 m2 defines CKD. Patients with eGFR values >/=60 mL/min/1.73 m2 may also have CKD if evidence of persistent proteinuria is present. The original MDRD equation for estimated GFR is not valid for patients less than 18 years of age. Additional information may be found at www.kdoqi.org. 38 Relative Risk for Future Cardiovascular Event Low <1.00 Average 1.00 - 3.00 High >3.00 39 Vitamin D deficiency has been defined by the [place] of Medicine and an Endocrine Society practice guideline as a level of serum 25-OH vitamin D less than 20 ng/mL (1,2). The Endocrine Society went on to further define vitamin D insufficiency as a level between 21 and 29 ng/mL (2). 1. IOM ([place] of Medicine). 2010. Dietary reference intakes for calcium and D. [place]: The National Academies Press. 2. Juanita MF, Vickie NC, Kenneth-Bob BARNARD, et al. Evaluation, treatment, and prevention of vitamin D deficiency: an Endocrine Society clinical practice guideline. JCEM. 2010; 96(7):1911-30. Performed at: RN - [facility] [address] [id number] Pie Dough Roller: Diana Armstrong MD, Phone: [phone] 40 RUN DATE: 02/25/13 [facility] LAB LIVE PAGE 1 RUN TIME: [address] [place] [id number] Specimen Inquiry Name: JEMMA ROMERO : [address]: Pamela Elizalde MD Acct: [id number] Unit: [id number] AGE: 42 Location: [facility] Re02/22/13 SEX: F Status: DEP ER SPEC: [id number] REINALDO: 02/22/13 [facility] DR: Pamela Elizalde MD REQ: [id number] RECD: 02/23/13 STATUS: AYSE LARA DR: Jennifer Garcia MD _ SOURCE: THROAT SPDESC: ORDERED: Throat Beta Str Procedure Result Verified Site Throat Beta Strep Culture Final 02/25/13- 0752 ML Negative For Group A Beta Streptococcus END OF REPORT * ML=Testing performed at Main Lab DEPARTMENT OF PATHOLOGY, [address] [place] [address] Bebo Jerez M.D. Director [facility] Permit #[id number] CYTOLOGY SCREENER - COAL HANDLER @ 05/27 Screened by: Saundra HENRY(ASCP) PAP: FINAL REPORT SPECIMEN ADEQUACY: SPECIMEN SATISFACTORY FOR INTERPRETATION ABSENCE OF TRANSFORMATION ZONE COMPONENT INTERPRETATION: NEGATIVE FOR INTRAEPITHELIAL LESION OR MALIGNANCY COMMENT: THINPREP PREPARED PAP SLIDE # Prepared in the Cytology laboratory from the ThinPrep sample is 1 ThinPrep smear. PAP ACCESSI QUESTIONNAIRE 04/25 PERTINENT CLINICAL HISTORY FOR PAP (COAL HANDLER) CYTOLOGY (Check all that apply): ? N Post ? Menopause? LMP date: 02/13/13 Last Pap: at [facility]? Abnormal Pap? Y If Yes, date: YEARS AGO Post Hysterectomy? Is cervix present? Y If patient had related surgical procedure: Related Therapy: Significant Clinical History: V76.2 DISCLAIMER: The Pap smear is a screening test and not a diagnostic procedure. False negative and false positive results can and do occur for a number of reasons. Regular screening provides an aid in detecting treatable cervical abnormalities, but should not be used as the only means for detecting cervical dysplasia and carcinoma. MARVA Olsen MD 02/24/13 1556 42 Note: Persistent reduction for 3 months or more in an eGFR <60 mL/min/1.73 m2 defines CKD. Patients with eGFR values >/=60 mL/min/1.73 m2 may also have CKD if evidence of persistent proteinuria is present. The original MDRD equation for estimated GFR is not valid for patients less than 18 years of age. Additional information may be found at www.kdoqi.org. 43 Levels of Specific IgE Class Description of Class ----- <0.08 0 Negative 0.08 - 0.15 I 0.16 - 0.50 II Increasing 0.51 - 2.50 III levels 2.51 - 12.50 IV of 12.51 - 62.50 V Specific IgE 62.51 - >100.00 Antibody 44 Test(s) [id number]-[id number] Hazelnut Tree; 017856- O406-RqQ [place], White; 090440-O649-PmZ White [place]; 057908-A014-EqC Pigweed, Rough; 424446- B491-UlV Sheep Akins([place]); 938797-G288-TaX Traytle were developed and had performance characteristics determined by [facility]. These tests have not been cleared or approved by the U.S. Food and Drug Administration. The FDA has determined that such clearance or approval is not necessary. These tests are used for clinical purposes. These should not be regarded as investigational or for research. Performed at: - [facility] [id number] Pie Dough Roller: Ethan Hendricks MD, Phone: [phone] Performed at: - [facility] [id number] Pie Dough Roller: Diana Armstrong MD, Phone: [phone] 45 NOT INFECTED WITH HCV, UNLESS RECENT INFECTION IS SUSPECTED OR OTHER EVIDENCE EXISTS TO INDICATE HCV INFECTION. 46 NORMAL KIDNEY FUNCTION OR MILD DISEASE - GFR >OR=60 CHRONIC KIDNEY DISEASE - GFR 15 - 59 RENAL FAILURE - GFR <15 Est. GFR calculation based on the MDRD study equation, which assumes a steady state for creatinine. Est. GFR should not be used for medication dosing. 47 PROGESTERONE REFERENCE RANGE: MALE 0.14 - 2.06 NG/ML FEMALE MENSTRUATING FOLLICULAR 0.31 - 1.52 NG/ML MID-LUTEAL 5.16 - 18.56 MG/ML POSTMENOPAUSAL < 0.78 NG/ML 1ST TRIMESTER 4.73 - 50.74 NG/ML 2ND TRIMESTER 19.41 - 45.30 NG/ML 48 FSH Reference Range: Males 0.7 - 10.8 mIU/mL Females, Menstruating Follicular Phase 2.3 - 12.6 mIU/mL Mid cycle Peak 5.2 - 17.5 mIU/mL Luteal Phase 1.7 - 12.9 mIU/mL Females, Postmenopausal On Menopausal Hormone Therapy (MHT) 5.9 - 72.8 mIU/mL Not on MHT 12.7 - 132.2 mIU/mL 49 LH Reference Range: Males 1.2 - 10.6 mIU/mL Females, Menstruating Follicular Phase 1.9 - 26.2 mIU/mL Mid cycle Peak 22.8 - 76.1 mIU/mL Luteal Phase 0.6 - 16.6 mIU/mL Females, Postmenopausal On Menopausal Hormone Therapy (MHT) 1.1 - 52.4 mIU/mL Not on MHT 8.6 - 61.8 mIU/mL 50 Cytology Laboratory [address] [place] [address], [address] [place] [address] CYTOLOGY REPORT Name: Jemma Romero : 1970 (Age: 41) Sex: F Location: [facility] Rec. #: [id number] Date Collected: 09/06/2011 Billing #: [id number] Date Received: 09/07/2011 Requisition # [id number] Physician(s): BRICE LLAMAS Source of Specimen: ECTOCERVICAL/THIN PREP Clinical Information: Date of Last Menstrual Period: 08/23/11 Menstrual History: Irregular Dysplasia/Cancer History: Abnormal Pap smear(s) HPV/Infection History: HPV/Condyloma Specimen Adequacy: SATISFACTORY FOR EVALUATION. NO ENDOCERVICAL/TRANSFORMATION ZONE. General Categorization: NEGATIVE FOR INTRAEPITHELIAL LESION OR MALIGNANCY. kurtis Electronic Signature MEGHAN Andrade (ASCP) Reported: 09/13/2011 Also seen by :MEGHAN Salter (ASCP) [facility] HPV High Risk Date Ordered: 09/08/2011 Status: Signed Out Date Reported: 09/08/2011 High Risk NEGATIVE (HPV types 16, 18, 31, 33, 35, 39, 45, 51, 52, 56, 58, 59, 68) Digene Hybrid Capture 2 Electronic Signature Miriam Garcia [facility] HPV Low Risk Date Ordered: 09/08/2011 Status: Signed Out Date Reported: 09/12/2011 Low Risk NEGATIVE (HPV types 6, 11) In situ hybridization In situ hybridization was performed at [facility], [facility] Laboratory [facility], [address], [address], [place], [place], [facility] The in situ hybridization report includes results which use analyte-specific reagents. These tests were developed and their performance characteristics determined by [facility]. They have not been cleared or approved by the U.S. Food and Drug Administration. The F.D.A. has determined that such clearance or approval is not necessary. The controls have been reviewed by the pathologist and are satisfactory. Electronic Signature Eric Loving MD [facility] ICD-9 Code(s) 795.09 Procedures Date CPT Code Description Status 03/28/2017 27598 Spirometry Completed 03/28/2017 10811 Tympanometry Completed 08/20/2013 40930 Add't Skin Biopsy Completed 08/20/2013 15234 Biopsy Of Skin Lesion Not List Elsewhere Completed 09/11/2012 03018 Spirometry Completed 09/11/2012 16397 Tympanometry Completed 05/08/2012 63699 Visual Screening Test Completed 05/08/2012 83434 EKG Completed 05/08/2012 14426 Diagnostic Bekesy Audiometry Completed 03/30/2010 77879 Simple Repair Of Scalp/Neck/Trunk To [employer] Hands And Completed Feet 03/30/2010 33186 Biopsy Of Skin Lesion Not List Elsewhere Completed 03/16/2010 62995 Biopsy Of Skin Lesion Not List Elsewhere Completed 03/16/2010 47512 Simple Repair Of Scalp/Neck/Trunk To [employer] Hands And Completed Feet 02/02/2010 36626 Biopsy Of Skin Lesion Not List Elsewhere Completed 06/16/2009 16289 Destruction Flat Wart,Molluscum Contagiosum, Or Milia Completed Up To 14 04/16/2009 Mammogram Completed 03/22/2009 02450 Tympanometry Completed 03/10/2009 21120 Destruction Flat Wart,Molluscum Contagiosum, Or Milia Completed Up To 14 03/03/2009 62055 Destruction Flat Wart,Molluscum Contagiosum, Or Milia Completed Up To 14 02/24/2009 77969 Destruction Flat Wart,Molluscum Contagiosum, Or Milia Completed Up To 14 12/29/2008 84210 Tympanometry Completed 08/27/2008 58265 Spirometry Completed 08/27/2008 57076 Tympanometry Completed 12/25/2006 87348 Tympanometry Completed 08/29/2005 42380 Tympanometry Completed Encounters Type Date Location Provider CPT E/M Dx Office Visit 07/04/2017 10:45a [place] [facility] JoseJennifer M.D. 21597 J44.9 L20.9 J30.9 F41.9 F33.9 F17.210 J45.909 G43.009 K21.0 R06.02 B00.2 A60.00 R53.83 Office Visit 06/21/2017 3:15p [place] JoseJennifer M.D. 82415 J44.9 L20.9 J30.9 F41.9 F33.9 F17.210 J45.909 G43.009 K21.0 R06.02 B00.2 A60.00 R53.83 Office Visit 06/18/2017 11:15a [place] [facility] JoseJennifer M.D. 69115 J44.9 L20.9 J30.9 F41.9 F33.9 F17.210 J45.909 G43.009 K21.0 R06.02 Z68.25 B00.2 A60.00 R53.83 Z00.01 Office Visit 04/11/2017 11:30a [place] [facility] Brice Cordova 42182 F17.210 M79.7 J45.909 Office Visit 03/28/2017 9:15a [place] [facility] Brice Cordova 77421 F17.210 M79.7 C44.82 G43.119 R05 J01.80 J20.9 R06.02 Office Visit 03/19/2017 9:45a [place] [facility] Brice Cordova 71240 F17.210 M79.7 C44.82 G43.119 K21.0 F41.9 Office Visit 12/11/2016 11:30a [place] [facility] Brice Cordova 77064 J13 F17.210 Office Visit 12/04/2016 10:45a [place] [facility] Brice Cordova 72372 F17.210 J13 J04.0 Office Visit 11/29/2016 2:45p [place] [facility] Brice Cordova 36700 F17.210 J13 J04.0 Office Visit 05/06/2014 11:00a [place] [facility] Brice Cordova [facility] 81937 305.1 729.1 173.82 616.10 Office Visit 02/13/2014 10:45a Brice Aceves [facility] 08037 465.8 305.1 729.1 Office Visit 02/04/2014 4:15p Brice Aceves [facility] 00246 173.82 305.1 780.79 729.1 V64.06 Office Visit 09/03/2013 11:30a Brice Aceves [facility] 07272 173.82 682.6 305.1 Office Visit 08/26/2013 11:00a [place] [facility] Aminata Theodore [facility] 37705 682.6 448.1 305.1 Office Visit 08/20/2013 2:00p Brice Aceves [facility] 48248 448.1 V69.2 Office Visit 08/06/2013 11:15a [place] [facility] Aminata Theodore [facility] 26419 448.1 692.9 Office Visit 03/19/2013 3:00p [place] [facility] Aminata Theodore [facility] 36999 780.79 723.1 627.2 724.2 729.5 Office Visit 03/04/2013 9:45a [place] [facility] Aminata Theodore [facility] 84413 780.79 723.1 627.2 724.2 729.5 Office Visit 02/21/2013 3:30p [place] [facility] Aminata Theodore [facility] 40093 V72.31 V76.10 V76.2 448.1 780.79 723.1 627.2 724.2 729.5 Office Visit 01/08/2013 1:45p [place] [facility] Aminata Theodore [facility] 31988 616.10 722.4 722.52 V76.10 305.1 Office Visit 09/11/2012 2:00p [place] [facility] Brice Cordova [facility] 86881 305.1 382.9 462 786.05 Office Visit 05/08/2012 2:45p [place] [facility] Brice Cordova [facility] 43588 V70.0 305.1 722.52 722.4 369.20 448.1 Office Visit 04/24/2012 4:15p [place] [facility] Brice Cordova [facility] 15303 708.9 780.79 305.1 Office Visit 04/02/2012 3:00p [place] [facility] Yanira Ulloa [facility] 53825 782.1 708.0 Office Visit 02/26/2012 3:45p Yanira Wright [facility] 13356 462 722.52 722.4 780.79 305.1 786.2 Office Visit 02/14/2012 1:30p Yanira Wright [facility] 79707 462 Office Visit 01/03/2012 4:00p Brice Aceves [facility] [address] 704.00 722.52 722.4 780.79 305.1 627.2 626.8 Office Visit 10/11/2011 3:30p [place] [facility] Yanira Ulloa [facility] [address]8410 723.1 346.01 722.52 722.4 616.10 305.1 Office Visit 09/06/2011 3:00p [place] Brice Guajardo [facility] 85324 723.1 346.01 722.52 Office Visit 04/05/2011 2:00p [place] [facility] Brice Cordova [facility] 50317 722.4 Office Visit 10/21/2010 1:30p [place] [facility] Brice Cordova [facility] 36415 V22.2 722.52 692.9 Office Visit 05/13/2010 2:00p [place] [facility] Brice Cordova [facility] 76741 V22.2 722.52 199.0 Office Visit 12/01/2009 2:30p [place] [facility] Brice Cordova [facility] [address]5558 722.52 692.9 Office Visit 03/22/2009 2:00p [place] [facility] Jennifer Garcia M.D. 65725 381.04 382.9 786.2 461.8 Office Visit 12/29/2008 2:30p [place] [facility] Jennifer Garcia M.D. 31985 382.9 477.8 478.19 461.8 Office Visit 11/03/2008 3:45p [place] [facility] Jennifer Garcia M.D. 79436 788.1 599.0 Plan of Care 07/04/2017 - Jennifer Garcia M.D.J44.9 Chronic obstructive pulmonary disease, unspecifiedComments:INCREASE PO FLUIDRESTSMOKING [id number] Atopic dermatitis, unspecifiedComments:SKIN CARE INSTRUCTIONS LOTION OR BABY OIL 2-3 APPLICATION PER DAYUSE MOISTURIZING SOAPAVOID PROLONGED WATER EXPOSUREAVOID USING HOT WATER IN SMIYJOY43.9 Allergic rhinitis, unspecifiedComments:INCREASE PO FLUID USE ANTIHISTAMINE PRN SECOND HAND SMOKING AVOIDANCE SMOKING [id number] Anxiety disorder, unspecifiedComments:COUNCELLING AND REASSURANCE RELAXATION TECHNIQUES DISCUSSEDCOUNSELED RE: STRESSORS IN LIFE AVOID ALLENERGY/HIGH CAFFEINE DRINKS DUR XVQTYNAX03.9 Major depressive disorder , recurrent, unspecifiedComments:COUNCELLING AND REASSURANCE RELAXATION TECHNIQUES DISCUSSED COUNSELED RE: STRESSORS IN LIFEF17.210 Nicotine dependence , cigarettes, uncomplicatedComments:SMOKING CESSATION RNBNMNCLXVDX38.909 Unspecified asthma, uncomplicatedComments:MDI / NEBULIZER [place] PRN AVOID EXPOSURE TO SMOKING OR FUMES SMOKING OVRULRYBES77.009 Migraine w/o aura, not intractable , w/o status migrainosusComments:TYLENOL OR MOTRIN PRNRELAXATION/AVOID DZWLWVJAYQ13.0 Gastro-esophageal reflux disease with esophagitisComments:AVOID CAFFEINE, ETOH AND SPICY FOODSTUMS OR MYLANTA PRN CALL WITH PROBLEMS OR CONCERNSTOBACCO USE DRTTLQSTXW54.02 Shortness of breathComments:INCREASE PO FLUIDRESTSMOKING BDAGVFXGIE73.2 Herpesviral gingivostomatitis and pharyngotonsillitisComments:LNKBXWEKGWJTM34.00 Herpesviral infection of urogenital system, unspecifiedComments:ASYMPTOMATIC @ THIS TIME OBSERVEREVIEWED SAFE SEX EBRUOBJNXQUS87.83 Other fatigueComments:INCRFEASE PO FLUIDCOUNCELLING AND REASSURANCE RESTReferral:No Doctor Selected
--- OUTSIDE RECORDS SUMMARY | 2017-07-05 00:40 | XMS REPORT ---
:1970 External Reference #:[id number] Author Organization [facility] Address [address] [facility] [place] [address] Phone [phone] Care Team Providers Name Role Phone Jennifer Garcia MD Care Team Information Trekking Guide Unavailable Payers Type Date Identification Numbers Payment Provider Subscriber Commercial Effective: Policy Number: [id number] [facility] Jemma Romero 2010 PayID: [id number] [place] [address] [facility] Part B Effective: Policy Number: Medicaid/[facility] Jemma Fuentesamp 2005 [id number] [employer] PayID: [id number] [address] [place] [address] Problems Date Description Provider Status Onset: 11/03/2011 Tobacco user Yanira Ulloa DIRECTOR OF CARDIOPULMONARY SERVICES Active Onset: 11/03/2011 Allergic rhinitis Brice Cordova DIRECTOR OF CARDIOPULMONARY SERVICES Active Onset: 11/03/2011 Widespread metastatic malignant Brice Cordova DIRECTOR OF CARDIOPULMONARY SERVICES Active neoplastic disease Note: MELANOMA OF SKIN Onset: 11/03/2011 Human papilloma virus infection Brice Cordova DIRECTOR OF CARDIOPULMONARY SERVICES Active Onset: 11/03/2011 Vaginitis and vulvovaginitis Yanira Ulloa DIRECTOR OF CARDIOPULMONARY SERVICES Resolved Resolved: 05/09/2012 Onset: 11/03/2011 Type 2 diabetes mellitus Brice Cordova DIRECTOR OF CARDIOPULMONARY SERVICES Resolved Resolved: 05/09/2012 Onset: 11/03/2011 Otalgia Brice Cordova DIRECTOR OF CARDIOPULMONARY SERVICES Resolved Resolved: 05/09/2012 Onset: 11/03/2011 Acute pharyngitis Brice Cordova DIRECTOR OF CARDIOPULMONARY SERVICES Resolved Resolved: 05/09/2012 Onset: 11/03/2011 Neck pain Yanira Ulloa DIRECTOR OF CARDIOPULMONARY SERVICES Resolved Resolved: 11/29/2016 Onset: 11/03/2011 Refractory migraine with aura Yanira Ulloa DIRECTOR OF CARDIOPULMONARY SERVICES Resolved Resolved: 11/29/2016 Onset: 11/03/2011 Degeneration of lumbar intervertebral Yanira Ulloa DIRECTOR OF CARDIOPULMONARY SERVICES Resolved disc Resolved: 11/29/2016 Onset: 11/03/2011 Degeneration of cervical Yanira Ulloa DIRECTOR OF CARDIOPULMONARY SERVICES Resolved intervertebral disc Resolved: 11/29/2016 Onset: 11/03/2011 Contact dermatitis Brice Cordova DIRECTOR OF CARDIOPULMONARY SERVICES Resolved Resolved: 11/29/2016 Onset: 11/03/2011 Non-neoplastic nevus Brice Cordova DIRECTOR OF CARDIOPULMONARY SERVICES Resolved Resolved: 11/29/2016 Onset: 11/03/2011 Sprain of ligament of lumbosacral joint Brice Cordova DIRECTOR OF CARDIOPULMONARY SERVICES Resolved Resolved: 11/29/2016 Onset: 11/03/2011 Chronic pancreatitis Brice Cordova DIRECTOR OF CARDIOPULMONARY SERVICES Resolved Resolved: 11/29/2016 Onset: 11/03/2011 Verruca vulgaris Brice Cordova DIRECTOR OF CARDIOPULMONARY SERVICES Resolved Resolved: 11/29/2016 Family History Date Family [...] tab by Jennifer Rodriguez mouth M.D. every day-[facility] F41.9 Zyrtec Allergy 06/18/2017 Active Tablets 10mg [...] Tablets 40mg 30tabs 1 by mouth 530.11 [facility] , 05/08/2012 every day Jennifer Rodriguez M.D. Metrogel-Vagina 10/11/2011 - Hx Gel 0.75% 1pack use as 616.10 [facility], l 02/13/2013 directedx 5 Jennifer Rodriguez M.D. Prevacid 10/11/2011 - Hx Capsules 30mg 30caps 1 po qd 346.01 [facility], 10/23/2011 Jennifer Rodriguez M.D. Percocet 10/11/2011 - Hx Tablets 10-325 240tabs 2 tabs by 722.52 [facility], 04/24/2012 mg mouth four Ahmad times a day M., as needed Joselyn Vital Signs Date Vital Result Comment 06/21/2017 BP Systolic 114 mmHg BP Diastolic [...] % 40.4-72.8 Lymph % 41.3 % 17.0-46.1 Fergus % 8.3 % 4.3-13.2 Eo% 2.6 % 0.0-6.6 Bas% 0.8 % 0.0-1.1 Neut# 3.05 K/uL 1.0-7.0 Lymph # 2.68 K/uL 0.8-3.4 Fergus # 0.54 K/uL 0.3-0.9 Eos # 0.17 [...] Urine Ketone NEGATIVE mg/dL Negative Urine Specific Blackstock <=1.005 Low 1.010-1.030 Urine Blood LARGE High [...] % (35.0-75.0) Lymph % 43.0 % (16.0-52.0) Fergus % 8.3 % High (0.0-8.0) Eos % 2.5 % (0.0-5.0) Baso % 1.1 % (0.0-4.0) Neut # 2.8 10*3/uL (1.8-7.7) Lymph # 2.7 10*3/uL (1.2-4.8) Fergus # 0.5 10*3/uL (0.0-0.8) Eos # 0.2 [...] % (35.0-75.0) Lymph % 49.0 % (16.0-52.0) Fergus % 6.2 % (0-8.0) Eos % 2.8 % (0-5.0) Baso % 0.9 % (0-4.0) Neut # 2.2 K/UL (1.8-7.7) Lymph # 2.6 K/UL (1.2-4.8) Fergus # 0.3 K/UL (0-0.8) Eos # 0.1 [...] % 40.4-72.8 Lymph % 43.9 % 17.0-46.1 Fergus % 7.9 % 4.3-13.2 Eo% 2.8 % 0.0-6.6 Bas% 1.2 % High 0.0-1.1 Neut# 2.24 K/uL 1.0-7.0 Lymph # 2.22 K/uL 0.8-3.4 Fergus # 0.40 K/uL 0.3-0.9 Eos # 0.14 [...] 40.4-72.8 Lymph % 48.3 % High 17.0-46.1 Fergus % 6.7 % 4.3-13.2 Eo% 3.3 % 0.0-6.6 Bas% 0.4 % 0.0-1.1 Neut# 2.91 K/uL 1.0-7.0 Lymph # 3.40 K/uL 0.8-3.4 Fergus # 0.47 K/uL 0.3-0.9 Eos # 0.23 [...] Only) See Note 43 D Pteronyssinus <0.08 Eotkg5zT/L D Farinae Mite <0.08 Heunm9sC/L Cat Hair/Dander <0.08 Azhaf1oC/L Dog Epithelia <0.08 Lueis1pI/L Bluegrass,[place] <0.08 Oytnn7aR/L Bermuda Grass <0.08 Kggzh5mA/L Bahia Grass <0.08 Ohxnx1qJ/L Cockroach,Syrian <0.08 Nzqgd4pE/L Penicillium Not <0.08 Imipa2wQ/L Cladosporium Herbarum <0.08 Dnkqu9eE/L Apergillis Fumigatus <0.08 Liuts6nG/L Mucor Racemosus <0.08 Xymxb4sC/L Alternaria Tenuis <0.08 Dmkxp3uE/L Stemphylium Bot <0.08 Vucrq8rM/L Birch,White <0.08 Jbosh9bU/L [place],White <0.08 Qkyvn3dH/L Elm,Syrian (White) <0.08 Nlnxv9oT/L Santiago,White <0.08 Idomf0hI/L Hazelnut Tree <0.08 Ayzuq3dG/L Glencoe,White <0.08 Tjvty7iH/L [place],White <0.08 Ypqka5mI/L Bryan,Mountain <0.08 Hiqvu4oU/L Ragweed,Short/ <0.08 Cwqwg3tJ/L Mugwort <0.08 Iyqcn5hI/L Plantain,Cypriot <0.08 Aiyzq0hU/L Pigweed,Rough <0.08 Vnezy5oY/L Sheep [place] Clif[place] (DO <0.08 Sphvd6nC/L Maple ([place]) <0.08 Pykjj7jM/L Nettle <0.08 Lnwmc7kE/L 44 Laboratory test finding 04/24/2012 Sedimentation Rate [...] % (35.0-75.0) Lymph % 38.3 % (16.0-52.0) Fergus % 6.0 % (0-8.0) Eos % 2.2 % (0-5.0) Baso % 0.6 % (0-4.0) Neut # 3.7 K/UL (1.8-7.7) Lymph # 2.7 K/UL (1.2-4.8) Fergus # 0.4 K/UL (0-0.8) Eos # 0.2 [...] > or= 3.0 U. Studies performed at [facility] indicate that positive NAOMY results <3.0 U are rarely accompanied by positive second order tests. Test Performed by: [facility] - [address] [address] 5 RESULT: Results may suggest recovery or [...] primary infection with EBV. Test Performed by: [facility] - [address] [address] 6 [id number] Would you like an EBV if Monospot is Negative?: N 7 Serologic response to B. burgdorferi infection is not detected, but cannot rule out early infection during which low or undetectable antibody levels to B. burgdorferi may be present. If clinically indicated, a new serum specimen should be submitted in 7-14 days. Test Performed by: [facility] - [address] [address] 8 [id number] Would you like an EBV if Monospot is Negative?: N 9 Performed by [facility], [address] [place] [id number] [email or web address], Sandro Abdalla MD - Lab. Director Test Performed by: [facility] [address] [place] [address] 10 [id number] REFERENCE VALUE Vaccinated: Positive (>=0.01 IU/mL) Unvaccinated: Negative (< 0.01 IU/mL) 13 ADDITIONAL INFORMATION This test was developed and its performance characteristics determined by [facility] in a manner consistent with CLIA requirements. This test has not been cleared or approved by the U.S. Food and Drug Administration. Test Performed by: [facility] - [address] [address] 14 ADDITIONAL INFORMATION The minimum level of protective antibody in the normal population is 0.15 mg/L. However, the optimum antibody level to confer equipment operator intermodal yard immunity is >=1.0 mg/L post vaccination. Test Performed by: [facility] - [address] [place] [address] 15 Desirable: <150 Borderline High: 150-199 High: [...] in selective patients <6.0%. Please refer to [place] Diabetes Association diabetic care guidelines for further information. 21 Test Performed by: [address] [address] 22 [id number] 23 Because ethnic data is not always [...] FOR EARLY DETECTION OF . 26 05/12/14 LAB.GENESIS Deleted by [employer] [facility] 27 NORMAL KIDNEY FUNCTION OR MILD DISEASE [...] The following result was obtained with the [employer] QUANTA Lite ADÁN IgA III WILFREDO. Results obtained with other manufacturers' assay methods may not be used interchangeably. The magnitude of the reported IgA level cannot be correlated to an endpoint titer. 29 INTERPRETATION OF RESULTS: < 15 UNITS NEGATIVE 15 - 19 UNITS EQUIVOCAL 20 - 79 UNITS MOD POSITIVE > 79 UNITS HIGH POSITIVE The following result was obtained with the [employer] QUANTA Lite ADÁN IgG III WILFREDO. Results obtained with other manufacturers' assay methods may not be used interchangeably. The magnitude of the reported IgG levels cannot be correlated to an endpoint titer. 30 INTERPRETATION OF RESULTS: < 12 UNITS NEGATIVE 12 - 19 UNITS EQUIVOCAL 20 - 79 UNITS MOD POSITIVE > 79 UNITS HIGH POSITIVE The following result was obtained with the [employer] QUANTA Lite ADÁN IgM III WILFREDO. Results [...] than 25 EU ..... Positive Performed by [facility], [address] [place] [address] [email or web address], Sonido Patel MD, Lab. Director 34 PT NOTIFIED OF RESULTS WILL SET UP WITH DERM IN [place] 35 [facility] [address] [place] [address], [address] [place] [address] SURGICAL PATHOLOGY REPORT Name: Jemma Romero Pathology #: [id number] : 1970 (Age: 43) Sex: F Location: [facility]. Rec. # [id number] Date of Procedure: 08/20/2013 Billing #: [id number] Date Received: 08/21/2013 Requisition #: [id number] Physician(s): BRICE CORDOVA DIRECTOR OF CARDIOPULMONARY SERVICES Specimen(s) Received: A: Left calf B: Left breast Clinical Information: Irritated lesion left calf lesion, PMH melanoma, 448.1 Gross Description: Specimen A received [...] 08/22/2013 Electronic Signature cf Eric Loving MD [facility] ICD-9 Codes: 232.9 36 THIS INFORMATION [...] D deficiency has been defined by the [place] of Medicine and an Endocrine Society practice guideline as a level of serum 25-OH vitamin D less than 20 ng/mL (1,2). The Endocrine Society went on to further define vitamin D insufficiency as a level between 21 and 29 ng/mL (2). 1. IOM ([place] of [employer]). 2010. Dietary reference intakes for calcium and D. [place]: The National Academies Press. 2. Juanita MF, Vickie NC, Ammon BARNARD, et al. Evaluation, treatment, and prevention of vitamin D deficiency: an Endocrine Society clinical practice guideline. JCEM. 2010; 96(7):1911-30. Performed at: RN - [facility] [address], [place], [place] [id number] Tree Trimming Supervisor: Diana Armstrong MD, Phone: [phone] RUN DATE: 02/25/13 [facility] LAB LIVE PAGE 1 RUN TIME: [address] [place] [address] Specimen Inquiry Name: JEMMA ROMERO : [address]: Pamela Elizalde MD Acct: [id number] Unit: [id number] AGE: 42 Location: [facility] Re02/22/13 SEX: F Status: DEP ER SPEC: [id number] REINALDO: 02/22/[address] [facility] [address]: Pamela Elizalde MD REQ: [id number] RECD: 02/23/13 STATUS: AYSE LARA DR: Jennifer Garcia MD _ SOURCE: THROAT SPDESC: ORDERED: Throat Beta Str Procedure Result Verified Site Throat Beta Strep Culture Final 02/25/13- 0752 ML Negative For Group A Beta Streptococcus END OF REPORT * ML=Testing performed at Main Lab DEPARTMENT OF PATHOLOGY, [address] [place] [address] Bebo Jerez M.D. Director [facility] Permit #[id number] CYTOLOGY SCREENER - ENGINEER REMOTE CONTROL DIESEL @ 05/27 Screened by: Saundra HENRY(ASCP) PAP: FINAL REPORT SPECIMEN ADEQUACY: SPECIMEN SATISFACTORY FOR INTERPRETATION ABSENCE OF TRANSFORMATION ZONE COMPONENT INTERPRETATION: NEGATIVE FOR INTRAEPITHELIAL LESION OR MALIGNANCY COMMENT: THINPREP PREPARED PAP SLIDE # Prepared in the Cytology laboratory from the ThinPrep sample is 1 ThinPrep smear. PAP ACCESSI QUESTIONNAIRE 04/25 PERTINENT CLINICAL HISTORY FOR PAP (ENGINEER REMOTE CONTROL DIESEL) CYTOLOGY (Check all that apply): ? N Post ? Menopause? LMP date: 02/13/13 Last Pap: at [facility]? Abnormal Pap? Y If Yes, date: [...] IgE 62.51 - >100.00 Antibody 44 Test(s) 002699-J404-NhQ Hazelnut Tree; 826966- Z962-OfM Glencoe, White; 216519-S624-PcS White [place]; 784217-Z065-TaD Pigweed, Rough; 739416- I916-ZoP Sheep Big Clifty(Dock); 357411-Q133-QzX Nettle were developed and had performance characteristics determined by [facility]. These tests have not been cleared or approved by the U.S. Food and Drug Administration. The FDA has determined that such clearance or approval is not necessary. These tests are used for clinical purposes. These should not be regarded as investigational or for research. Performed at: - [address] [id number] Tree Trimming Supervisor: Ethan Hendricks MD, Phone: [phone] Performed at: [facility] [id number] Tree Trimming Supervisor: Diana Armstrogn MD, Phone: [phone] NOT INFECTED WITH HCV, UNLESS RECENT [...] 8.6 - 61.8 mIU/mL 50 Cytology Laboratory [address] [place] [address] [address] [place] [address] CYTOLOGY REPORT Name: Jemma Romero : 1970 (Age: 41) Sex: F Location: [facility] Med. Rec. #: [id number] Date Collected: 09/06/2011 Billing #: [id number] Date Received: 09/07/2011 Requisition # [id number] Physician(s): [...] seen by :MEGHAN Salter (ASCP) [facility] HPV High Risk Date Ordered: 09/08/2011 Status: Signed Out Date Reported: 09/08/2011 High Risk NEGATIVE (HPV types 16, 18, 31, 33, 35, 39, 45, 51, 52, 56, 58, 59, 68) Digene Hybrid Capture 2 Electronic Signature Miriam Garcia [facility] HPV Low Risk Date Ordered: 09/08/2011 Status: Signed Out Date Reported: 09/12/2011 Low Risk NEGATIVE (HPV types 6, 11) In situ hybridization In situ hybridization was performed at [employer] [facility], [address] [place] [address], [place], [place], [facility] The in situ hybridization report includes results which use analyte-specific reagents. These tests were developed and their performance characteristics determined by [employer] They have not been cleared or approved by the U.S. Food and Drug Administration. The F.D.A. has determined that such clearance or approval is not necessary. The controls have been reviewed by the pathologist and are satisfactory. Electronic Signature Eric Loving MD [facility] ICD-9 Code(s) 795.09 Procedures Date CPT Code Description Status 03/28/2017 94608 Spirometry Completed 03/28/2017 29636 Tympanometry Completed 08/20/2013 02758 Add't Skin Biopsy Completed 08/20/2013 20741 Biopsy Of Skin Lesion Not List Elsewhere Completed 09/11/2012 50029 Spirometry Completed 09/11/2012 74576 Tympanometry Completed 05/08/2012 91021 Visual Screening Test Completed 05/08/2012 16556 EKG Completed 05/08/2012 47743 Diagnostic Bekesy Audiometry Completed 03/30/2010 36783 Simple Repair Of Scalp/Neck/Trunk To [employer] Hands And Completed Feet 03/30/2010 68553 Biopsy Of Skin Lesion Not List Elsewhere Completed 03/16/2010 68030 Biopsy Of Skin Lesion Not List Elsewhere Completed 03/16/2010 20813 Simple Repair Of Scalp/Neck/Trunk To [employer] Hands And Completed Feet 02/02/2010 76858 Biopsy Of Skin Lesion Not List Elsewhere Completed 06/16/2009 77685 Destruction Flat Wart,Molluscum Contagiosum, Or Milia Completed Up To 14 04/16/2009 Mammogram Completed 03/22/2009 79595 Tympanometry Completed 03/10/2009 96595 Destruction Flat Wart,Molluscum Contagiosum, Or Milia Completed Up To 14 03/03/2009 77821 Destruction Flat Wart,Molluscum Contagiosum, Or Milia Completed Up To 14 02/24/2009 09135 Destruction Flat Wart,Molluscum Contagiosum, Or Milia Completed Up To 14 12/29/2008 05721 Tympanometry Completed 08/27/2008 79498 Spirometry Completed 08/27/2008 91859 Tympanometry Completed 12/25/2006 91577 Tympanometry Completed 08/29/2005 15160 Tympanometry Completed Encounters Type Date Location Provider CPT E/M Dx Office Visit 06/21/2017 3:15p [facility] Jennifer Garcia M.D. 35855 J44.9 L20.9 J30.9 F41.9 F33.9 F17.210 J45.909 G43.009 K21.0 R06.02 B00.2 A60.00 R53.83 Office Visit 06/18/2017 11:15a [facility] Jennifer Garcia M.D. 38639 J44.9 L20.9 J30.9 F41.9 F33.9 F17.210 J45.909 G43.009 K21.0 R06.02 Z68.25 B00.2 A60.00 R53.83 Z00.01 Office Visit 04/11/2017 11:30a [facility] Brice Cordova [facility] 56647 F17.210 M79.7 J45.909 Office Visit 03/28/2017 9:15a [facility] Brice Cordova DIRECTOR OF CARDIOPULMONARY SERVICES 73756 F17.210 M79.7 C44.82 G43.119 R05 J01.80 J20.9 R06.02 Office Visit 03/19/2017 9:45a [facility] Brice Cordova [facility] 38843 F17.210 M79.7 C44.82 G43.119 K21.0 F41.9 Office Visit 12/11/2016 11:30a [facility] Brice Cordova DIRECTOR OF CARDIOPULMONARY SERVICES 37820 J13 F17.210 Office Visit 12/04/2016 10:45a [facility] Brice Cordova DIRECTOR OF CARDIOPULMONARY SERVICES 06274 F17.210 J13 J04.0 Office Visit 11/29/2016 2:45p [facility] Brice Cordova [facility] 87452 F17.210 J13 J04.0 Office Visit 05/06/2014 11:00a [facility] Brice Cordova [facility] 08182 305.1 729.1 173.82 616.10 Office Visit 02/13/2014 10:45a Brice Aceves [facility] 37719 465.8 305.1 729.1 Office Visit 02/04/2014 4:15p Brice Aceves [facility] 21348 173.82 305.1 780.79 729.1 V64.06 Office Visit 09/03/2013 11:30a Brice Aceves [facility] 63227 173.82 682.6 305.1 Office Visit 08/26/2013 11:00a [facility] Aminata Theodore, GREEN BUILDING DESIGN SPECIALIST 14242 682.6 448.1 305.1 Office Visit 08/20/2013 2:00p Brice Aceves [facility] 42730 448.1 V69.2 Office Visit 08/06/2013 11:15a [facility] Aminata Theodore, GREEN BUILDING DESIGN SPECIALIST 03747 448.1 692.9 Office Visit 03/19/2013 3:00p [facility] Aminata Theodore, GREEN BUILDING DESIGN SPECIALIST 87884 780.79 723.1 627.2 724.2 729.5 Office Visit 03/04/2013 9:45a [facility] Aminata Theodore, GREEN BUILDING DESIGN SPECIALIST 15322 780.79 723.1 627.2 724.2 729.5 Office Visit 02/21/2013 3:30p [facility] Aminata Theodore, REJI 53428 V72.31 V76.10 V76.2 448.1 780.79 723.1 627.2 724.2 729.5 Office Visit 01/08/2013 1:45p [facility] Aminata Theodore, REJI 48350 616.10 722.4 722.52 V76.10 305.1 Office Visit 09/11/2012 2:00p [facility] Brice Cordova [facility] 89917 305.1 382.9 462 786.05 Office Visit 05/08/2012 2:45p [facility] Brice Cordova DIRECTOR OF CARDIOPULMONARY SERVICES 13637 V70.0 305.1 722.52 722.4 369.20 448.1 Office Visit 04/24/2012 4:15p [facility] Brice Cordova DIRECTOR OF CARDIOPULMONARY SERVICES 83198 708.9 780.79 305.1 Office Visit 04/02/2012 3:00p [facility] LailaYanira [facility] 10139 782.1 708.0 Office Visit 02/26/2012 3:45p [facility] UlloaYanira [facility] 84907 462 722.52 722.4 780.79 305.1 786.2 Office Visit 02/14/2012 1:30p [facility] UlloaYanira [facility] 01562 462 Office Visit 01/03/2012 4:00p Brice Aceves [facility] 12199 704.00 722.52 722.4 780.79 305.1 627.2 626.8 Office Visit 10/11/2011 3:30p [facility] Yanira Ulloa [facility] 47825 723.1 346.01 722.52 722.4 616.10 305.1 Office Visit 09/06/2011 3:00p [facility] Brice Cordova [facility] 25730 723.1 346.01 722.52 Office Visit 04/05/2011 2:00p [facility] Brice Cordova [facility] 55698 722.4 Office Visit 10/21/2010 1:30p [facility] Brice Cordova [facility] 54782 V22.2 722.52 692.9 Office Visit 05/13/2010 2:00p [facility] Brice Cordova [facility] 26249 V22.2 722.52 199.0 Office Visit 12/01/2009 2:30p [facility] Brice Cordova [facility] 59114 722.52 692.9 Office Visit 03/22/2009 2:00p [facility] Jennifer Garcia M.D. 20328 381.04 382.9 786.2 461.8 Office Visit 12/29/2008 2:30p [facility] Jennifer Garcia M.D. 22438 382.9 477.8 478.19 461.8 Office Visit 11/03/2008 3:45p [facility] Jennifer Garcia M.D. 10021 788.1 599.0 Plan of Care 06/21/2017 - Jennifer Garcia M.D.J44.9 Chronic obstructive pulmonary disease, unspecifiedComments:INCREASE PO FLUIDRESTSMOKING WJUFCJCPKA09.9 Atopic dermatitis, unspecifiedComments:SKIN CARE INSTRUCTIONS LOTION OR BABY OIL 2-3 APPLICATION PER DAYUSE MOISTURIZING SOAPAVOID PROLONGED WATER EXPOSUREAVOID USING HOT WATER IN TQEWVKJ30.9 Allergic rhinitis, unspecifiedComments:INCREASE PO FLUID USE ANTIHISTAMINE PRN SECOND HAND SMOKING AVOIDANCE SMOKING IPREXICIDM44.9 Anxiety disorder, unspecifiedComments:COUNCELLING AND REASSURANCE RELAXATION TECHNIQUES DISCUSSEDCOUNSELED RE: STRESSORS IN LIFE AVOID ALLENERGY/HIGH CAFFEINE DRINKS DUR QOVMCJOK74.9 Major depressive disorder , recurrent, unspecifiedComments:COUNCELLING AND REASSURANCE RELAXATION TECHNIQUES DISCUSSED COUNSELED RE: STRESSORS IN LIFEF17.210 Nicotine dependence , cigarettes, uncomplicatedComments:SMOKING CESSATION IESSPHSYQWVK01.909 Unspecified asthma, uncomplicatedComments:MDI / NEBULIZER TX PRN AVOID EXPOSURE TO SMOKING OR FUMES SMOKING GRYALLHUXH55.009 Migraine w/o aura, not intractable , w/o status migrainosusComments:TYLENOL OR MOTRIN PRNRELAXATION/AVOID NAJWDOANQB01.0 Gastro-esophageal reflux disease with esophagitisComments:AVOID CAFFEINE, ETOH AND SPICY FOODSTUMS OR MYLANTA PRN CALL WITH PROBLEMS OR CONCERNSTOBACCO USE HTPZOFPVOG38.02 Shortness of breathComments:INCREASE PO FLUIDRESTSMOKING QYRUDAZYVT61.2 Herpesviral gingivostomatitis and pharyngotonsillitisComments:QLWUQOTYMEHVT93.00 Herpesviral infection of urogenital system, unspecifiedComments:ASYMPTOMATIC @ THIS TIME OBSERVEREVIEWED SAFE SEX EIEVBSNNKMIG43.83 Other fatigueComments:INCRFEASE PO FLUIDCOUNCELLING AND REASSURANCE REST
--- OUTSIDE RECORDS SUMMARY | 2017-07-05 00:41 | XMS REPORT ---
:1970 External Reference #:[id number] Author Organization Jennifer [facility] 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 Payers Type Date Identification Numbers Payment Provider Subscriber Commercial Effective: Policy Number: [id number] [facility] Jemma Romero 2010 PayID: [id number] [place] [address] [facility] Part B Effective: Policy Number: Medicaid/[facility] Jemma Fuentesamp 2005 [id number] Systems PayID: [id number] [address] [place] [address] Problems Date Description Provider Status Onset: 11/03/2011 Tobacco user Yanira Ulloa POLE CUTTER Active Onset: 11/03/2011 Allergic rhinitis Brice Cordova POLE CUTTER Active Onset: 11/03/2011 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 Onset: 11/03/2011 Human papilloma virus infection Brice Cordova POLE CUTTER Active Onset: 11/03/2011 Vaginitis and vulvovaginitis Yanira Ulloa POLE CUTTER Resolved Resolved: 05/09/2012 Onset: 11/03/2011 Type 2 diabetes mellitus Brice Cordova POLE CUTTER Resolved Resolved: 05/09/2012 Onset: 11/03/2011 Otalgia Brice Cordova POLE CUTTER Resolved Resolved: 05/09/2012 Onset: 11/03/2011 Acute pharyngitis Brice Cordova POLE CUTTER Resolved Resolved: 05/09/2012 Onset: 11/03/2011 Neck pain Yanira Ulloa POLE CUTTER Resolved Resolved: 11/29/2016 Onset: 11/03/2011 Refractory migraine with aura Yanira Ulloa POLE CUTTER Resolved Resolved: 11/29/2016 Onset: 11/03/2011 Degeneration of lumbar intervertebral Yanira Ulloa POLE CUTTER Resolved disc Resolved: 11/29/2016 Onset: 11/03/2011 Degeneration of cervical Yanira Ulloa POLE CUTTER Resolved intervertebral disc Resolved: 11/29/2016 Onset: 11/03/2011 Contact dermatitis Brice Cordova POLE CUTTER Resolved Resolved: 11/29/2016 Onset: 11/03/2011 Non-neoplastic nevus Brice Cordova POLE CUTTER Resolved Resolved: 11/29/2016 Onset: 11/03/2011 Sprain of ligament of lumbosacral joint Brice Cordova POLE CUTTER Resolved Resolved: 11/29/2016 Onset: 11/03/2011 Chronic pancreatitis Brice Cordova POLE CUTTER Resolved Resolved: 11/29/2016 Onset: 11/03/2011 Verruca vulgaris Brice Cordova POLE CUTTER Resolved Resolved: 11/29/2016 Family History Date Family [...] Jennifer Rodriguez mouth M.D. every day[place] [place].9 Zyrtec Allergy 06/18/2017 Active Tablets 10mg [...] Tablets 40mg 30tabs 1 by mouth 530.11 [facility] , 05/08/2012 every day Jennifer Rodriguez M.D. Metrogel-Vagina 10/11/2011 - Hx Gel 0.75% 1pack use as 616.10 [facility], l 02/13/2013 directedx 5 Jennifer Rodriguez M.D. Prevacid 10/11/2011 - Hx Capsules 30mg 30caps 1 po qd 346.01 [facility], 10/23/2011 Jennifer Rodriguez M.D. Percocet 10/11/2011 - Hx Tablets 10-325 240tabs 2 tabs by 722.52 [facility], 04/24/2012 mg mouth four Ahmad times a day M., as needed Joselyn Vital Signs Date Vital Result Comment 06/18/2017 BP Systolic 118 mmHg BP Diastolic [...] Date Test Result H/L Range Note Laboratory test 06/18/2017 Erythrocyte Sed Rate <pending> finding Laboratory test 06/18/2017 Lyme Disease Serology <pending> finding Monospot <pending> Rheumatoid Factor <pending> TSH (Thyroid Stim Horm) <pending> Free T4 (Free Thyroxine) <pending> CBC Auto Diff 03/19/2017 White Blood Count [...] Blood Cells % 0 Comp Metabolic Panel 03/19/2017 Sodium 138 mmol/L [...] Egfr Non- 87.2 >60 Egfr 112.1 >60 1 Laboratory test finding 03/19/2017 CRP High Sensitivity < 0.20 mg/L 2 Hemoglobin A1c (Glyco HGB) 5.5 % 4.0-5.6 3 Rheumatoid Factor <15 IU/mL <15 4 TSH (Thyroid Stim Horm) 0.65 mcIU/mL 0.34-5.60 5 Lipid Profile (Trig/Chol/HDL) 03/19/2017 Triglycerides 100 mg/dL 6 Cholesterol 139 mg/dL 7 HDL Cholesterol 55.4 mg/dL 8 LDL Cholesterol 64 mg/dL 9 Liver Function Tests 05/12/2014 Total Protein 6.8 [...] >60 mL/min >60 If >60 mL/min >60 10 BUN/Creat 10.0 ratio Sodium 143 mmol/L 136-145 [...] % 40.4-72.8 Lymph % 41.3 % 17.0-46.1 [place] % 8.3 % 4.3-13.2 Eo% 2.6 % 0.0-6.6 Bas% 0.8 % 0.0-1.1 Neut# 3.05 K/uL 1.0-7.0 Lymph # 2.68 K/uL 0.8-3.4 [place] # 0.54 K/uL 0.3-0.9 Eos # 0.17 K/uL 0.0-0.5 Baso # 0.05 K/uL 0.0-0.1 Laboratory test finding 05/12/2014 Urine HCG (Qualitative) NEGATIVE Negative 11 Urine Screen 05/12/2014 Urine Screen See Note 12 Urinalysis With 05/12/2014 Urine Color YELLOW Yellow Microscopic Urine Clarity CLEAR Clear Urine Glucose - Dipstick NEGATIVE mg/dL Negative Urine Bilirubin - Dipstick NEGATIVE Negative Urine Ketone NEGATIVE mg/dL Negative Urine Specific [place] <=1.005 Low 1.010-1.030 Urine Blood LARGE High [...] >90 ml/min/1.73m2 (>59) GFR Interpretation <SEE NOTE> 13 Cardiolipin Antibodies 02/04/2014 Cardiolipin Iga @ 1 APL (0-12) 14 Cardiolipin Igg @ 4 GPL (0-15) 15 Cardiolipin Igm @ 12 MPL (0-12) 16 CBC With Diff 02/04/2014 WBC 6.2 10*3/uL (4.1-11.0) RBC 3.92 10*6/uL Low (4.00-5.40) HGB 13.3 g/dL (12.0-16.0) HCT 38.1 % (36.0-47.0) MCV 97.1 fL High (80.0-95.0) MCH 33.9 pg High (27.0-32.0) MCHC 34.9 g/dL (32.0-36.0) RDW 12.2 % (10.5-14.5) PLT 174 10*3/uL (150-450) MPV 9.0 fL (7.1-10.7) Neut % 45.1 % (35.0-75.0) Lymph % 43.0 % (16.0-52.0) [place] % 8.3 % High (0.0-8.0) Eos % 2.5 % (0.0-5.0) Baso % 1.1 % (0.0-4.0) Neut # 2.8 10*3/uL (1.8-7.7) Lymph # 2.7 10*3/uL (1.2-4.8) [place] # 0.5 10*3/uL (0.0-0.8) Eos # 0.2 10*3/uL (0.0-0.5) Baso # 0.1 10*3/uL (0.0-0.2) Laboratory test finding 02/04/2014 Mariaa SCRN W/ Reflex @ NEGATIVE (Neg) Rheumatoid Factor @ <15 IU/mL (0-15) 25 Hydroxy Vit D @ 64 ng/mL (31-100) 17 Laboratory test finding 02/04/2014 Ssa Igg AB @ NEGATIVE INDEX (Neg) SSB Igg AB @ NEGATIVE INDEX (Neg) Anti-Dna(DS) AB @ 1 IU (0-4) 18 Dna Single Strand 23 EU High 19 Esr 5 mm/h (0-20) Laboratory test finding 08/20/2013 Surgical Pathology See Note 20, 21 CBC With Diff 08/20/2013 WBC 5.2 K/UL (4.1-11.0) RBC 3.89 M/UL Low (4.00-5.40) HGB 12.8 g/dL (12.0-16.0) HCT 39.1 % (36.0-47.0) MCV 100.3 FL High (80.0-95.0) MCH 33.0 pg High (27.0-32.0) MCHC 32.8 g/dL (32.0-36.0) RDW 12.4 % (10.5-14.5) PLT 171 K/UL (150-400) MPV 9.2 FL (7.1-10.7) Neut % 41.1 % (35.0-75.0) Lymph % 49.0 % (16.0-52.0) [place] % 6.2 % (0-8.0) Eos % 2.8 % (0-5.0) Baso % 0.9 % (0-4.0) Neut # 2.2 K/UL (1.8-7.7) Lymph # 2.6 K/UL (1.2-4.8) [place] # 0.3 K/UL (0-0.8) Eos # 0.1 K/UL (0-0.5) Baso # 0.0 K/UL (0-0.2) HIV 1/2 AB 08/20/2013 HIV 1/2 AB @ NEGATIVE (Neg) 22 Basic Metabolic Panel 03/04/2013 Glucose 74 mg/dL Low 76-115 BUN 10 mg/dL 5-23 Creatinine 0.9 mg/dL 0.5-1.4 Glom Filtration Rate, Estimate >60 mL/min >60 If >60 mL/min >60 23 BUN/Creat 11.1 ratio Sodium 141 mmol/L 136-145 [...] % 40.4-72.8 Lymph % 43.9 % 17.0-46.1 [place] % 7.9 % 4.3-13.2 Eo% 2.8 % 0.0-6.6 Bas% 1.2 % High 0.0-1.1 Neut# 2.24 K/uL 1.0-7.0 Lymph # 2.22 K/uL 0.8-3.4 [place] # 0.40 K/uL 0.3-0.9 Eos # 0.14 K/uL 0.0-0.5 Baso # 0.06 K/uL 0.0-0.1 Laboratory test 03/04/2013 C-Reactive < 0.16 mg/L 0.00-3.00 24 finding Protein,Cardiac Sedimentation Rate 4 mm/hr 0-20 [...] 0.49- 4.67 Vitamin D,25-Hydroxy 56.5 ng/mL 30.0-100.0 25 Throat-Beta Strept 02/22/2013 Throat Beta Strep (SEE NOTE) 26 Culture Laboratory test finding 02/21/2013 ThinPrep Pap: See Note 27 Cervix/Endocx CBC W/Automated Diff 04/24/2012 White Blood [...] 40.4-72.8 Lymph % 48.3 % High 17.0-46.1 [place] % 6.7 % 4.3-13.2 Eo% 3.3 % 0.0-6.6 Bas% 0.4 % 0.0-1.1 Neut# 2.91 K/uL 1.0-7.0 Lymph # 3.40 K/uL 0.8-3.4 [place] # 0.47 K/uL 0.3-0.9 Eos # 0.23 K/uL 0.0-0.5 Baso # 0.03 K/uL 0.0-0.1 Comprehensive Metabolic Panel 04/24/2012 Glucose 95 mg/dL 76-115 BUN 12 mg/dL 5-23 Creatinine 0.8 mg/dL 0.5-1.4 Glom Filtration Rate, Estimate >60 mL/min >60 If >60 mL/min >60 28 BUN/Creat 15.0 ratio Sodium 142 mmol/L 136-145 [...] 04/24/2012 mRast Class (Text Only) See Note 29 D Pteronyssinus <0.08 Zmpca4mL/L D Farinae Mite <0.08 Nvjff5sJ/L Cat Hair/Dander <0.08 Rjaev1yD/L Dog Epithelia <0.08 Uoivb3xF/L Bluegrass,[place] <0.08 Kbdvo4bL/L [place] Grass <0.08 Bougm0wG/L [place]ia Grass <0.08 Nbqbv2oL/L Cockroach,[place] <0.08 Cmqdo8qN/L Penicillium Not <0.08 Qwwqe8kM/L Cladosporium Herbarum <0.08 Cdyhb4mP/L Apergillis Fumigatus <0.08 Ypkor6hG/L Mucor Racemosus <0.08 Anexc7eN/L Alternaria Tenuis <0.08 Cmmpf5wR/L Stemphylium Bot <0.08 Jxiof1wV/L Birch,White <0.08 Isqgy4tC/L Mobile,White <0.08 Pddun5uD/L Elm,[place] (White) <0.08 Dlevp5fS/L [place],White <0.08 Vaxaa5vY/L Hazelnut Tree <0.08 Idxqj8uK/L [place],White <0.08 Hagda5bP/L [place],White <0.08 Klzrb0gN/L [place] <0.08 Ackjw4uX/L Ragweed,Short/ <0.08 Bvdmu7nE/L Mugwort <0.08 Emrrh2jU/L Plantain,Gibraltarian <0.08 Lnoop6eS/L Pigweed,Rough <0.08 Rwjtv8rB/L Sheep [place] (DO <0.08 Utqtp2rG/L Maple (Waldo) <0.08 Izuii0oO/L Nettle <0.08 Nxhof9jE/L 30 Laboratory test finding 04/24/2012 Sedimentation Rate 6 mm/hr 0-20 Laboratory test finding 01/03/2012 Hepatitis C AB @ NEGATIVE (Neg) 31 CMP 01/03/2012 Sodium 140 mmol/L (136-145) Potassium [...] >90 ML/MIN/1.73M2 (>59) GFR Interpretation <SEE NOTE> 32 Laboratory test finding 01/03/2012 Progesterone @ 0.33 NG/ML 33 FSH/LH Evaluation 01/03/2012 FSH @ 3.8 MIU/ML 34 LH @ 8.4 MIU/ML 35 CBC With Diff 01/03/2012 WBC 7.1 K/UL (4.1-11.0) RBC 4.15 M/UL (4.00-5.40) HGB 14.0 GM/DL (12.0-16.0) HCT 40.0 % (36.0-47.0) MCV 96.4 FL High (80.0-95.0) MCH 33.6 pg High (27.0-32.0) MCHC 34.9 g/dL (32.0-36.0) RDW 12.2 % (10.5-14.5) PLT 211 K/UL (150-400) MPV 8.8 FL (7.1-10.7) Neut % 52.9 % (35.0-75.0) Lymph % 38.3 % (16.0-52.0) [place] % 6.0 % (0-8.0) Eos % 2.2 % (0-5.0) Baso % 0.6 % (0-4.0) Neut # 3.7 K/UL (1.8-7.7) Lymph # 2.7 K/UL (1.2-4.8) [place] # 0.4 K/UL (0-0.8) Eos # 0.2 K/UL (0-0.5) Baso # 0.0 K/UL (0-0.2) Laboratory test 01/03/2012 TSH,Ultrasensitive @ 0.753 mIU/L (0.360-4.170 ) finding Pap Plus HPV 09/06/2011 CoPathPlus HPV HR- LR- 36 1 Because ethnic data is not always [...] 5 Kidney failure <15 (or dialysis) 2 Low risk: <1.00 Average risk: 1.00-3.00 High risk: >3.00 3 Therapeutic target for the treatment of diabetes mellitus patients is <7% HBA1C, and in selective patients <6.0%. Please refer to [place] Diabetes Association diabetic care guidelines for further information. 4 Test Performed by: [address] [id number] [email or web address] [id number] Desirable: <150 Borderline High: 150-199 High: 200-499 Very High: >500 7 Desirable: <200 Borderline High: 200-239 High: >239 8 Low: <40 Desirable: 40-60 High: >60 9 Desirable: <100 Near Optimal: 100-129 Borderline High: 130-159 High: 160-189 Very High: >189 10 Note: Persistent reduction for 3 months or more in an eGFR <60 mL/min/1.73 m2 defines CKD. Patients with eGFR values >/=60 mL/min/1.73 m2 may also have CKD if evidence of persistent proteinuria is present. The original MDRD equation for estimated GFR is not valid for patients less than 18 years of age. Additional information may be found at www.kdoqi.org. 11 FIRST MORNING SPECIMENS GENERALLY CONTAIN THE HIGHEST CONCENTRATION OF HCG AND ARE RECOMMENDED FOR EARLY DETECTION OF . 12 05/12/14 JOAQUIN.GENESIS Deleted by Reflex Group [facility] 13 NORMAL KIDNEY FUNCTION OR MILD DISEASE - GFR >OR=60 CHRONIC KIDNEY DISEASE - GFR 15 - 59 RENAL FAILURE - GFR <15 Est. GFR calculation based on the MDRD study equation, which assumes a steady state for creatinine. Est. GFR should not be used for medication dosing. 14 INTERPRETATION OF RESULTS: < 12 UNITS NEGATIVE 12 - 20 UNITS EQUIVOCAL > 20 UNITS POSITIVE The following result was obtained with the sfilatinoA GlucoSentiente ADÁN IgA III WILFREDO. Results obtained with other manufacturers' assay methods may not be used interchangeably. The magnitude of the reported IgA level cannot be correlated to an endpoint titer. 15 INTERPRETATION OF RESULTS: < 15 UNITS NEGATIVE 15 - 19 UNITS EQUIVOCAL 20 - 79 UNITS MOD POSITIVE > 79 UNITS HIGH POSITIVE The following result was obtained with the INOVA QUANTA Lite ADÁN IgG III WILFREDO. Results obtained with other manufacturers' assay methods may not be used interchangeably. The magnitude of the reported IgG levels cannot be correlated to an endpoint titer. 16 INTERPRETATION OF RESULTS: < 12 UNITS NEGATIVE 12 - 19 UNITS EQUIVOCAL 20 - 79 UNITS MOD POSITIVE > 79 UNITS HIGH POSITIVE The following result was obtained with the INOVA QUANTA Lite ADÁN IgM III WILFREDO. Results obtained with other manufacturers' assay methods may not be used interchangeably. The magnitude of the reported IgM level cannot be correlated to an endpoint titer. 17 A REVIEW OF THE LITERATURE SUGGESTS THE FOLLOWING RANGES FOR THE CLASSIFICATION OF 25-OH VITAMIN D STATUS: VITAMIN D STATUS 25-OH VITAMIN D DEFICIENCY <20 NG/ML INSUFFICIENCY 20-30 NG/ML SUFFICIENCY 31 - 100 NG/ML TOXICITY > 100 NG/ML A PEDIATRIC REFERENCE RANGE HAS NOT BEEN ESTABLISHED USING THIS METHOD. 18 IUs INTERPRETATION LESS THAN 5 NEGATIVE 5 TO 9 EQUIVOCAL GREATER THAN 9 POSITIVE 19 Reference range: 0 to 19 INTERPRETIVE INFORMATION: ssDNA Ab, IgG Less than 20 EU .........Normal 20 - 25 EU ............. Borderline positive Greater than 25 EU ..... Positive Performed by [employer], [address] [place] [id number] [email or web address], Sonido Patel MD, Lab. Director 20 PT NOTIFIED OF RESULTS WILL SET UP WITH PASCUAL IN [place] [address] [facility] [address] [place] [address], [address] [place] [address] SURGICAL PATHOLOGY REPORT Name: Jemma Romero Pathology #: [id number] : 1970 (Age: 43) Sex: F Location: [facility] Rec. # [id number] Date of Procedure: 08/20/2013 Billing #: [id number] Date Received: 08/21/2013 Requisition #: [id number] Physician(s): BRICE CORDOVA POLE CUTTER Specimen(s) Received: A: Left calf B: Left [...] bisected and submitted entirely. (1 block) jib /SUZANNE Diagnosis: A) SQUAMOUS CELL CARCINOMA IN SITU, LEFT CALF. THE PERIPHERAL MARGIN IS NEGATIVE IN THIS PLANE OF SECTION. B) SQUAMOUS CELL CARCINOMA IN SITU, LEFT BREAST. THE PERIPHERAL MARGIN IS NEGATIVE IN THIS PLANE OF SECTION. Reported: 08/22/2013 Electronic Signature cf Eric Loving MD [facility] ICD-9 Codes: 232.9 22 THIS INFORMATION HAS BEEN DISCLOSED TO YOU FROM CONFIDENTIAL RECORDS WHICH ARE PROTECTED BY STATE LAW. STATE LAW PROHIBITS YOU FROM MAKING ANY FURTHER DISCLOSURE OF THIS INFORMATION WITHOUT THE SPECIFIC WRITTEN CONSENT OF THE PERSON TO WHOM IT PERTAINS, OR OTHERWISE PERMITTED BY LAW. 23 Note: Persistent reduction for 3 months or more in an eGFR <60 mL/min/1.73 m2 defines CKD. Patients with eGFR values >/=60 mL/min/1.73 m2 may also have CKD if evidence of persistent proteinuria is present. The original MDRD equation for estimated GFR is not valid for patients less than 18 years of age. Additional information may be found at www.kdoqi.org. 24 Relative Risk for Future Cardiovascular Event Low <1.00 Average 1.00 - 3.00 High >3.00 25 Vitamin D deficiency has been defined by the [place] of Medicine and an Endocrine Society practice guideline as a level of serum 25-OH vitamin D less than 20 ng/mL (1,2). The Endocrine Society went on to further define vitamin D insufficiency as a level between 21 and 29 ng/mL (2). 1. IOM ([place] of Medicine). 2010. Dietary reference intakes for calcium and D. [place]: The National Academies Press. 2. Juanita MF, Vickie NC, Ammon BARNARD, et al. Evaluation, treatment, and prevention of vitamin D deficiency: an Endocrine Society clinical practice guideline. JCEM. 2011 Oct; 96(7):1911-30. Performed at: RN - [facility] [address] [id number] County Commissioner: Diana Armstrong MD, Phone: [phone] 26 RUN DATE: 02/25/13 [facility] LAB LIVE PAGE 1 RUN TIME: [id number] [place] [id number] Specimen Inquiry Name: JEMMA ROMERO : [address]: Pamela Elizalde MD Acct: [id number] Unit: [id number] AGE: 42 Location: [facility] Re02/22/13 SEX: F Status: DEP ER SPEC: [id number] REINALDO: 02/22/13 [facility] DR: Pamela Elizalde MD REQ: [id number] RECD: 02/23/13 STATUS: AYSE LARA DR: Jennifer Garcia MD _ SOURCE: THROAT SPDESC: ORDERED: Throat Beta Str Procedure Result Verified Site Throat Beta Strep Culture Final 02/25/13- 0752 ML Negative For Group A Beta Streptococcus END OF REPORT * ML=Testing performed at Main Lab DEPARTMENT OF PATHOLOGY, [address] [place] [address] Bebo Jerez M.D. Director [facility] Permit #[id number] CYTOLOGY SCREENER - BUS AIDE @ 05/27 Screened by: Saundra Olivares [facility](ASCP) PAP: FINAL REPORT SPECIMEN ADEQUACY: SPECIMEN SATISFACTORY FOR INTERPRETATION ABSENCE OF TRANSFORMATION ZONE COMPONENT INTERPRETATION: NEGATIVE FOR INTRAEPITHELIAL LESION OR MALIGNANCY COMMENT: THINPREP PREPARED PAP SLIDE # Prepared in the Cytology laboratory from the ThinPrep sample is 1 ThinPrep smear. PAP ACCESSI QUESTIONNAIRE 04/25 PERTINENT CLINICAL HISTORY FOR PAP (BUS AIDE) CYTOLOGY (Check all that apply): ? N Post ? Menopause? LMP date: 02/13/13 Last Pap: at [facility]? Abnormal Pap? Y If Yes, date: YEARS [...] and carcinoma. MARVA Olsen MD 02/24/13 1556 Note: Persistent reduction for 3 months or more in an eGFR <60 mL/min/1.73 m2 defines CKD. Patients with eGFR values >/=60 mL/min/1.73 m2 may also have CKD if evidence of persistent proteinuria is present. The original MDRD equation for estimated GFR is not valid for patients less than 18 years of age. Additional information may be found at www.kdoqi.org. 29 Levels of Specific IgE Class Description of Class ----- <0.08 0 Negative 0.08 - 0.15 I 0.16 - 0.50 II Increasing 0.51 - 2.50 III levels 2.51 - 12.50 IV of 12.51 - 62.50 V Specific IgE 62.51 - >100.00 Antibody 30 Test(s) [id number] Hazelnut Tree; 752720- Q737-YvL [place], White; 160666-Z099-PvC White [place]; 976720-A560-HrU Pigweed, Rough; 026728- Z282-OxN Sheep [place]ock); 060797-E562-ObR Nettle were developed and had performance characteristics determined by [employer]. These tests have not been cleared or approved by the U.S. Food and Drug Administration. The FDA has determined that such clearance or approval is not necessary. These tests are used for clinical purposes. These should not be regarded as investigational or for research. Performed at: - [facility] [id number] County Commissioner: Ethan Hendricks MD, Phone: [phone] Performed at: - [facility] [id number] County Commissioner: Diana Armstrong MD, Phone: [phone] 31 NOT INFECTED WITH HCV, UNLESS RECENT INFECTION IS SUSPECTED OR OTHER EVIDENCE EXISTS TO INDICATE HCV INFECTION. 32 NORMAL KIDNEY FUNCTION OR MILD DISEASE - GFR >OR=60 CHRONIC KIDNEY DISEASE - GFR 15 - 59 RENAL FAILURE - GFR <15 Est. GFR calculation based on the MDRD study equation, which assumes a steady state for creatinine. Est. GFR should not be used for medication dosing. 33 PROGESTERONE REFERENCE RANGE: MALE 0.14 - 2.06 NG/ML FEMALE MENSTRUATING FOLLICULAR 0.31 - 1.52 NG/ML MID-LUTEAL 5.16 - 18.56 MG/ML POSTMENOPAUSAL < 0.78 NG/ML 1ST TRIMESTER 4.73 - 50.74 NG/ML 2ND TRIMESTER 19.41 - 45.30 NG/ML 34 FSH Reference Range: Males 0.7 - 10.8 mIU/mL Females, Menstruating Follicular Phase 2.3 - 12.6 mIU/mL Mid cycle Peak 5.2 - 17.5 mIU/mL Luteal Phase 1.7 - 12.9 mIU/mL Females, Postmenopausal On Menopausal Hormone Therapy (MHT) 5.9 - 72.8 mIU/mL Not on MHT 12.7 - 132.2 mIU/mL 35 LH Reference Range: Males 1.2 - 10.6 mIU/mL Females, Menstruating Follicular Phase 1.9 - 26.2 mIU/mL Mid cycle Peak 22.8 - 76.1 mIU/mL Luteal Phase 0.6 - 16.6 mIU/mL Females, Postmenopausal On Menopausal Hormone Therapy (MHT) 1.1 - 52.4 mIU/mL Not on MHT 8.6 - 61.8 mIU/mL 36 Cytology Laboratory [address] [place] [address], [address] [place] [address] CYTOLOGY REPORT Name: Jemma Romero : 1970 (Age: 41) Sex: F Location: [facility] Rec. #: [id number] Date Collected: 09/06/2011 Billing #: [id number] Date Received: 09/07/2011 Requisition # [id number] Physician(s): [...] seen by :MEGHAN Salter (ASCP) [facility] HPV High Risk Date Ordered: 09/08/2011 Status: Signed Out Date Reported: 09/08/2011 High Risk NEGATIVE (HPV types 16, 18, 31, 33, 35, 39, 45, 51, 52, 56, 58, 59, 68) Digene Hybrid Capture 2 Electronic Signature Miriam Garcia [facility] HPV Low Risk Date Ordered: 09/08/2011 Status: Signed Out Date Reported: 09/12/2011 Low Risk NEGATIVE (HPV types 6, 11) In situ hybridization In situ hybridization was performed at [employer], [facility], [address] [place] [address], [facility] [address], [place], [facility] The in situ hybridization report includes results which use analyte-specific reagents. These tests were developed and their performance characteristics determined by [employer]. They have not been cleared or approved by the U.S. Food and Drug Administration. The F.D.A. has determined that such clearance or approval is not necessary. The controls have been reviewed by the pathologist and are satisfactory. Electronic Signature Eric Loving MD [facility] ICD-9 Code(s) 795.09 Procedures Date CPT Code Description Status 03/28/2017 49799 Spirometry Completed 03/28/2017 94484 Tympanometry Completed 08/20/2013 02274 Add't Skin Biopsy Completed 08/20/2013 15564 Biopsy Of Skin Lesion Not List Elsewhere Completed 09/11/2012 27134 Spirometry Completed 09/11/2012 56262 Tympanometry Completed 05/08/2012 01963 Visual Screening Test Completed 05/08/2012 22013 EKG Completed 05/08/2012 12209 Diagnostic Bekesy Audiometry Completed 03/30/2010 23659 Simple Repair Of Scalp/Neck/Trunk To [employer] Hands And Completed Feet 03/30/2010 86839 Biopsy Of Skin Lesion Not List Elsewhere Completed 03/16/2010 97545 Biopsy Of Skin Lesion Not List Elsewhere Completed 03/16/2010 43245 Simple Repair Of Scalp/Neck/Trunk To [employer] Hands And Completed Feet 02/02/2010 99497 Biopsy Of Skin Lesion Not List Elsewhere Completed 06/16/2009 94960 Destruction Flat Wart,Molluscum Contagiosum, Or Milia Completed Up To 14 04/16/2009 Mammogram Completed 03/22/2009 27742 Tympanometry Completed 03/10/2009 05998 Destruction Flat Wart,Molluscum Contagiosum, Or Milia Completed Up To 14 03/03/2009 28525 Destruction Flat Wart,Molluscum Contagiosum, Or Milia Completed Up To 14 02/24/2009 81210 Destruction Flat Wart,Molluscum Contagiosum, Or Milia Completed Up To 14 12/29/2008 92355 Tympanometry Completed 08/27/2008 61534 Spirometry Completed 08/27/2008 98090 Tympanometry Completed 12/25/2006 96386 Tympanometry Completed 08/29/2005 58449 Tympanometry Completed Encounters Type Date Location Provider CPT E/M Dx Office Visit 06/18/2017 11:15a [place] [facility] Jennifer Garcia M.D. 63466 J44.9 L20.9 J30.9 F41.9 F33.9 F17.210 J45.909 G43.009 K21.0 R06.02 B00.2 A60.00 R53.83 Z00.01 Office Visit 04/11/2017 11:30a [facility] [facility] Brice Cordova [facility] [address]36 F17.210 M79.7 J45.909 Office Visit 03/28/2017 9:15a [facility] Brice Cordova [facility] [address]327 F17.210 M79.7 C44.82 G43.119 R05 J01.80 J20.9 R06.02 Office Visit 03/19/2017 9:45a [facility] Brice Cordova [facility] 47847 F17.210 M79.7 C44.82 G43.119 K21.0 F41.9 Office Visit 12/11/2016 11:30a [facility] Brice Cordova [facility] [address] J13 F17.210 Office Visit 12/04/2016 10:45a [facility] Brice Cordova [facility] 57766 F17.210 J13 J04.0 Office Visit 11/29/2016 2:45p [facility] Brice Cordova [facility] [address]48 F17.210 J13 J04.0 Office Visit 05/06/2014 11:00a [facility] Brice Codrova [facility] [address] 305.1 729.1 173.82 616.10 Office Visit 02/13/2014 10:[address]a Brice Ace[address] [facility] [address] 465.8 305.1 729.1 Office Visit 02/04/2014 4:15p Brice Aceves [facility] 09759 173.82 305.1 780.79 729.1 V64.06 Office Visit 09/03/2013 11:30a Brice Aceves [facility] 45789 173.82 682.6 305.1 Office Visit 08/26/2013 11:00a [place] [facility] Arben AminataREJI cox 20710 682.6 448.1 305.1 Office Visit 08/20/2013 2:00p Brice Aceves [facility] 15752 448.1 V69.2 Office Visit 08/06/2013 11:15a [place] [address] 448.1 692.9 Office Visit 03/19/2013 3:00p [place] [facility] Arben AminataREJI cox 20613 780.79 723.1 627.2 724.2 729.5 Office Visit 03/04/2013 9:45a [place] [address] 780.79 723.1 627.2 724.2 729.5 Office Visit 02/21/2013 3:30p [place] [address] V72.31 V76.10 V76.2 448.1 780.79 723.1 627.2 724.2 729.5 Office Visit 01/08/2013 1:45p [place] [facility] Arben AminataREJI cox 77040 616.10 722.4 722.52 V76.10 305.1 Office Visit 09/11/2012 2:00p [place] [facility] Brice Cordova [employer]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 07039 V70.0 305.1 722.52 722.4 369.20 448.1 Office Visit 04/24/2012 4:15p [place] [facility] Brice Cordova [facility] 60605 708.9 780.79 305.1 Office Visit 04/02/2012 3:00p [place] [facility] Yanira Ulloa [facility] 57515 782.1 708.0 Office Visit 02/26/2012 3:45p [place] [facility] Yanira Ulloa [facility] 54264 462 722.52 722.4 780.79 305.1 786.2 Office Visit 02/14/2012 1:30p [place] [facility] Yanira Ulloa [facility] 43030 462 Office Visit 01/03/2012 4:00p Brice Aceves [facility] 25765 704.00 722.52 722.4 780.79 305.1 627.2 626.8 Office Visit 10/11/2011 3:30p [place] [facility] Yanira Ulloa [facility] 43940 723.1 346.01 722.52 722.4 616.10 305.1 Office Visit 09/06/2011 3:00p [place] [facility] Brice Cordova [facility] 74685 723.1 346.01 722.52 Office Visit 04/05/2011 2:00p [place] [facility] Brice Cordova [facility] 10281 722.4 Office Visit 10/21/2010 1:30p [place] [facility] Brice Cordova [facility] 86059 V22.2 722.52 692.9 Office Visit 05/13/2010 2:00p [place] [facility] Brice Cordova [facility] 21977 V22.2 722.52 199.0 Office Visit 12/01/2009 2:30p [place] [facility] Brice Cordova [facility] 72226 722.52 692.9 Office Visit 03/22/2009 2:00p [place] [facility] Jennifer Garcia M.D. 93184 381.04 382.9 786.2 461.8 Office Visit 12/29/2008 2:30p [place] [facility] Jennifer Garcia M.D. 28283 382.9 477.8 478.19 461.8 Office Visit 11/03/2008 3:45p [place] [facility] Jennifer Garcia M.D. 97557 788.1 599.0 Plan of Care Future Appointment(s):06/21/2017 3:15 pm - Jennifer Garcia M.D. at [place] [facility]2006/18/2017 - Jennifer Garcia M.D.J44.9 Chronic obstructive pulmonary disease, unspecifiedNew Medication:Dulera 100-5 mcg/ActComments:INCREASE PO FLUIDRESTSMOKING CESSATIONFollow up:2 weeks.L20.9 Atopic dermatitis, unspecifiedComments:SKIN CARE INSTRUCTIONS LOTION OR BABY OIL 2-3 APPLICATION PER DAYUSE MOISTURIZING SOAPAVOID PROLONGED WATER EXPOSUREAVOID USING HOT WATER IN LZRVHRU37.9 Allergic rhinitis, unspecifiedNew Medication:Zyrtec Allergy 10 mgNasonex 50 mcg/ActComments:INCREASE PO FLUID USE ANTIHISTAMINE PRN SECOND HAND SMOKING AVOIDANCE SMOKING YSCPSVHWRN95.9 Anxiety disorder, unspecifiedNew Medication:Xanax 0.5 mgCitalopram Hydrobromide 40 mgComments:COUNCELLING AND REASSURANCE RELAXATION TECHNIQUES DISCUSSEDCOUNSELED RE: STRESSORS IN LIFE AVOID ALLENERGY/HIGH CAFFEINE DRINKS DUR ZTBGOFIE42.9 Major depressive disorder , recurrent, unspecifiedNew Medication:Citalopram Hydrobromide 40 mgComments: COUNCELLING AND REASSURANCE RELAXATION TECHNIQUES DISCUSSED COUNSELED RE: STRESSORS IN LIFEF17.210 Nicotine dependence, cigarettes, uncomplicatedComments: SMOKING CESSATION USRASBIBMZSU74.909 Unspecified asthma, uncomplicatedComments: MDI / NEBULIZER TX PRN AVOID EXPOSURE TO SMOKING OR FUMES SMOKING YORFHLNVXI20.009 Migraine w/o aura, not intractable, w/o status migrainosusComments:TYLENOL OR MOTRIN PRNRELAXATION/AVOID FNLZFTCYNH77.0 Gastro- esophageal reflux disease with esophagitisComments:AVOID CAFFEINE, ETOH AND SPICY FOODSTUMS OR MYLANTA PRN CALL WITH PROBLEMS OR CONCERNSTOBACCO USE LYWMUCBWKM24.02 Shortness of breathComments:INCREASE PO FLUIDRESTSMOKING HIMJULPBZG16.2 Herpesviral gingivostomatitis and pharyngotonsillitisNew Medication:Prevacid 30 mgComments:HEORBXIYSJTCN89.00 Herpesviral infection of urogenital system, unspecifiedComments:ASYMPTOMATIC @ THIS TIME OBSERVEREVIEWED SAFE SEX IWUVIXEICHEA49.83 Other fatigueComments:INCRFEASE PO FLUIDCOUNCELLING AND REASSURANCE RESTZ00.01 Encounter for general adult medical exam w abnormal findingsComments:GOOD NUTRITION /EXERCISEDENTAL/ FLOSSING/ SELF CAREDROWNING/ SUN SAFETYSEAT BELT/ DRIVING SAFETYSPORT BIKE/ HELMET USESPORTS/ INJURY PREVENTIONVIOLENCE PREVENTION/ GUN SAFETYPARENTING ADVICE"SAFE AT HOME"SEX EDUCATION/ COUNSELINGBREAST/ TESTICULAR SELF EXAMEDUCATION GOALS/ ACTIVITIESLIMIT TV/ INTERNETUSETOBACCO/ ALCOHOL/ DRUGS/ INHALANTSPEER REFUSAL SKILLSSOCIAL INTERACTIONFAMILY FUNCTIONINGSELF CONTROLDEPRESSION/ ANXIETYNEXT APPOINTMENTYEARLY PHYSICAL WELLNESS EVALUATION F/U WITH OB /BUS AIDE FOR PAP
--- OUTSIDE RECORDS SUMMARY | 2017-07-05 00:41 | XMS REPORT ---
:1970 External Reference #:[id number] Author Organization [facility] Address [address] [place] [address] Phone [phone] Care Team Providers Name Role Phone Jennifer Garcia M.D. Care Team Information Emissions Inspector Unavailable Jennifer Garcia M.D. Primary Care Physician Unavailable Payers Type Date Identification Numbers Payment Provider Subscriber Health Maintenance Policy Number: [id number] 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 Medications Medication Date Status Form Strength Qnty SIG Indications Ordering Provider Epinephrine 06/12/ Active Solution 0.3mg/0.3 4unit use as Vannesa2017 Auto-Injec ML s directed - rudy Goins EDGE WORKER-C generic only [facility]# [address]-6 2 Dulera 05/30/ Active Aerosol 100-5mcg/ 13gm inhale 2 2017 Act puffs by Donald mouth every M.D. morning and evening Medrol 05/29/ Active TBPK 4mg 21uni 1 dose pack- 2017 ts take as hina Goins. EDGE WORKER-C tapered over 6 days. Symbicort 05/29/ Active Aerosol 160-4.5mc 10.20 2 Kathie 2017 g/Act 0gm inhalations Donald, am&pm - M.D. use with spacer- rinse mouth after use Albuterol 05/29/ Active Nebulizer (2.5mg/3M 90uni #1 via Ewelina Sulfate 2018 L) 0.083% ts nebulizer García, every 4-6 MD hours as needed for cough, shortness of breath and wheezing Ipratropium 05/29/ Active Solution 0.5-2.5(3 90ml 1 respule Vannesa Gackle/Albuter 2017 )mg/3ML via Forshier, ol Sulfate nebulizer EDGE WORKER-C every 6 hours as needed for cough, sob, wheezing Triamcinolone 05/23/ Active Aerosol 55mcg/Act 16.90 2 squirts L50.1 John W. Acetonide 2017 0ml each nostril Montes De Oca, once daily M.DBrinda Valacyclovir / Active Tablets 500mg Unknown HCL [...] Rate 18 /min Heart Rate 77 /min Body Temperature 97.5 F O2 % BldC Oximetry 97 % BP [...] Procedures Date CPT Code Description Status 05/30/2017 94262 Ippb Completed 05/29/2017 61236 Pulmonary Function Test Completed 05/23/2017 20966 Pre PFT Completed Encounters Type Date Location Provider CPT E/M Dx Office Visit 06/12/2017 10:00a [place] [facility] MAITE Collins 50178 Z23 J45.40 Z91.013 J30.89 J02.9 R05 Office Visit 05/30/2017 11:00a [place] Kathie Bennett M.D. 87728 J45.41 J30.89 R05 R05 J45.41 Office Visit 05/29/2017 1:20p [place] [facility] MAITE Collins 23581 Z23 R05 J30.89 Plan of Care Future Appointment(s):07/10/2017 11:40 am - Kathie Bennett M.D. at [facility]06/12/2017 - MURIEL Collins-CZ23 Encounter for vdcoczoobireM07.40 Moderate persistent asthma, tejkthtnneqjmV71.013 Allergy to tepeplwM01.89 Other allergic idfgwgnuA13.9 Acute pharyngitis, wgbjynfhsacY87 CoughNew Labs: Immunoglobulins Igg,Iga & IgmPneumococcal Antibody 23 TypeDiptheria Antitoxoid ABTetanus AB Ser QLHaemophilus Influenza B Igg AnNew Medication: Epinephrine 0.3 mg/0.3MLRecommendations:Continue all medications as prescribed.Refrain from wearing perfumes/scented colognes while visitingour office. Educational materials provided to the patient. Urgent care today or PCP - for throat culture TODAY. Throat is suspicious for strep or viral pharyngitis. May need antibiotic therapy depending on results of rapid strep culture. Continue symbicort 160 2 puffs twice daily- use with spacer Use rescue inhaler 2 puffs 15 minutes prior to exercise to prevent exercise induced symptoms and every 4-6 hours as needed for cough, shortness of breath or wheezing. Please call if consistently using rescue inhaler > 2 times per week. F/u with Dr Bennett as schedule 07/10/17 Will obtain labs for immunodeficiency work up. Continue strict avoidance of shellfish and fish. If accidental exposure/ingestion occurrs refer to emergency action plan. EMERGENCY ACTION PLAN: For systemic reactions: -Administer: EpiPen 0.3 mg IM to thigh muscle -May repeat the dose in 15-20 minutes if there is incomplete response to the first dose, or if symptoms get worse over time. -Call 911 for safe transportto an emergency facility. For mild reactions or suspected ingestion without symptoms: -Administer:Liquid Benadryl 12.5 mg/5 ml, 4 tsp immediately and every 4-6 hours as needed. Do not give Benadryl if there is any difficulty swallowing, breathing or talking. Administer EpiPen instead. Contact LOGISTICS ASSOCIATE to discuss hormone levels and menstrual cycles. Recommend cessation of vaporized smoking as wellas ciggarette smoking. F/u with PCP regarding abnormal lab results: alkaline phosphatase, vitamin D, and thyroids. If symptoms increase, call our office.
[2017-07-05] MEDS ORDERED: Diazepam INJ (NF) 5 MG/ML 10 ML VIAL (50 MG TOTAL) IV ONE (01:00)
[2017-07-05 02:00] VITALS: BP 118/71
--- NOTE | 2017-07-20 01:55 | ED ---
Israel Hilliard Rebecca, scribed for Linda Kan MD on 07/05/17 at 0050 . Back Pain - HPI Summary HPI Summary: Pt is a 47 y/o F who presents to ED c/o lumbar back pain since 1700 today. Patient reports that pain began when she bent over and pain has been constant since onset. Pain is currently severe, ranked 8/10 and characterized as spasmodic. Sx alleviated by flexing and externally rotating the hip, aggravated by movement. Denies numbness, tingling, and incontinence. PMHx degenerative disc disease with the last problem about 7 years ago. - History of Current Complaint Chief Complaint: EDBackInjuryPain Stated Complaint: BACK PAIN Time Seen by Provider: 07/05/17 00:18 Hx Obtained From: Patient Hx Last Menstrual Period: 06/09/17 Onset/Duration: Lasting Hours, Still Present Back Pain Location: Is Discrete @ - Lumbar back Severity Currently: Severe Pain Intensity: 8 Pain Scale Used: 0-10 Numeric Character: Spasmodic Aggravating Symptom(s): Movement Alleviating Symptom(s): Other - Flexing and externally rotating the hip Associated Signs And Symptoms: Positive: Negative. Negative: Numbness, Tingling , Bladder Incontinence, Bowel Incontinence - Allergies/Home Medications Allergies/Adverse Reactions: Allergies Allergy/AdvReac Type Severity Reaction Status Date / Time azithromycin Allergy Severe GI Upset Verified 07/04/17 23:56 cephalexin Allergy Severe Rash Verified 07/04/17 23:56 clarithromycin [From Biaxin] Allergy Severe Rash Verified 07/04/17 23:56 codeine Allergy Severe GI Upset Verified 07/04/17 23:56 erythromycin base Allergy Severe GI Upset Verified 07/04/17 23:56 Penicillins Allergy Unknown Unknown Verified 07/04/17 23:56 Reaction Details MULTIPLE ALLERGIES Allergy Severe See Comment Uncoded 07/04/17 23:56 PMH/Surg Hx/FS Hx/Imm Hx Cardiovascular History: Reports: Other Cardiovascular Problems/Disorders - MVP Respiratory History: Comment Only: Other Respiratory Problems/Disorders - HX PNEUMONIA X 3 MONTHS Jan Musculoskeletal History: Reports: Hx Back Problems - Degenerative disc disease - Cancer History Cancer Type, Location and Year: SKIN CA 2009 - Surgical History Surgery Procedure, Year, and Place: APPENDECTOMY, CHOLECYSTECTOMY, C-SECTIONX2 Infectious Disease History: Yes Infectious Disease History: Denies: Traveled Outside the [place] in Last 30 Days - Family History Known Family History: Positive: Hypertension Negative: Diabetes - Social History Alcohol Use: Rare Substance Use Type: Reports: None Smoking Status (MU): Former Smoker Type: Cigarettes Amount Used/How Often: 1/2-1 PPD Length of Time of Smoking/Using Tobacco: 25 YEARS Have You Smoked in the Last Year: Yes Review of Systems Negative: incontinence Positive: Other - Lumbar back pain Neurological: Other - NEGATIVE: Tingling Negative: Numbness All Other Systems Reviewed And Are Negative: Yes Physical Exam - Summary Physical Exam Summary: VITAL SIGNS: Reviewed. GENERAL: ~Patient is a well-developed and nourished female who is lying comfortable in the stretcher. Patient is not in any acute respiratory distress. HEAD AND FACE: No signs of trauma. No ecchymosis, hematomas or skull depressions. No sinus tenderness. EYES: PERRLA, EOMI x 2, No injected conjunctiva, no nystagmus. EARS: Hearing grossly intact. Ear canals and tympanic membranes are within normal limits. MOUTH: Oropharynx within normal limits. NECK: Supple, trachea is midline, no adenopathy, no JVD, no carotid bruit, no c- spine tenderness, neck with full ROM. CHEST: Symmetric, no tenderness at palpation LUNGS: Clear to auscultation bilaterally. No wheezing or crackles. CVS: Regular rate and rhythm, S1 and S2 present, no murmurs or gallops appreciated. ABDOMEN: Soft, non-tender. No signs of distention. No rebound no guarding, and no masses palpated. Bowel sounds are normal. EXTREMITIES: FROM in all major joints, no edema, no cyanosis or clubbing. Lumbar spine tenderness with negative bilateral straight leg raise test. Sensation is intact. NEURO: Alert and oriented x 3. No acute neurological deficits. Speech is normal and follows commands. SKIN: Dry and warm Triage Information Reviewed: Yes Vital Signs On Initial Exam: Initial Vitals Temp Pulse Resp BP Pulse Ox 98.1 F 73 16 123/79 100 07/04/17 23:45 07/04/17 23:45 07/04/17 23:45 07/04/17 23:45 07/04/17 23:45 Vital Signs Reviewed: Yes Diagnostics - Vital Signs Vital Signs Temp Pulse Resp BP Pulse Ox 07/04/17 23:45 98.1 F 73 16 123/79 100 - Laboratory Lab Statement: Any lab studies that have been ordered have been reviewed, and results considered in the medical decision making process. Re-Evaluation - Re-Evaluation First Eval Re-Evaluation Time: 01:38 Change: Improved Comment: Pt's symptoms have improved. Discussed D/C plan with the pt. Back Pain Course/Dx - Course Assessment/Plan: Pt is a 47 y/o F who presents to ED c/o lumbar back pain since 1700 today. Patient reports that pain began when she bent over and pain has been constant since onset. Pain is currently severe, ranked 8/10 and characterized as spasmodic. Sx alleviated by flexing and externally rotating the hip, aggravated by movement. Denies numbness, tingling, and incontinence. PMHx degenerative disc disease with the last problem about 7 years ago. In the ED course, pt received Decadron, Toradol, and Valium which improved symptoms. Pt will be D/C to home with Dx of low back pain with Rx for Flexeril, Decadron and Motrin. She understands and agrees. Allergies noted. - Diagnoses Provider Diagnoses: Low back pain Discharge - Sign-Out/Discharge Documenting (check all that apply): Discharge - Discharge Plan Condition: Stable Disposition: HOME Prescriptions: Cyclobenzaprine TAB* [Flexeril 10 MG TAB*] 10 mg PO TID PRN #20 tab PRN Reason: Spasms - Back Dexamethasone TAB* [Decadron TAB*] 4 mg PO BID #10 tab Ibuprofen TAB* [Motrin TAB* 600 MG] 600 mg PO Q6H PRN #30 tab PRN Reason: Pain Patient Education Materials: Back Pain (ED) Referrals: Elvia Decker MD [Medical Doctor] - 3 Days Juwan Guzmán MD [Medical Doctor] - 3 Days Additional Instructions: Follow up with your primary care physician and neurosurgery. RETURN TO THE EMERGENCY DEPARTMENT FOR ANY RETURNING OR WORSENING SYMPTOMS. The documentation as recorded by the Israel wilcox Rebecca accurately reflects the service I personally performed and the decisions made by , Linda Kan MD.
== END 2017-07-05 02:02 | disposition home or self-care (01) ==
LOC: ED 23:42
DX: M54.5 Low back pain (principal)
CPT/HCPCS: 96374; 96375; 99283; J1100; J1885; J3360

== ENCOUNTER → 2017-12-21 10:34 | Day surgery (SDC) | payer MEDICAID, OTHER ==
[~2017-12-21 10:34] MED LIST: Acetaminophen ADULT LIQ* 650 MG/20.3 ML UDC ONE; Acetaminophen TAB* 325 MG ONE; Acetaminophen TAB* 325 MG PO PRN; Albuterol 2.5 MG/3 ML NEB.SOL* (0.083%) INH ONE; Buffered Lidocaine 0.9% SYRIN* 5 ML/SYR SYRINGE INTRADERM ONE; Midazolam* 1 MG/ML 2 ML VIAL (2 MG) ONE; Naloxone* 0.4 MG/ML 1 ML VIAL IV PRN; Ondansetron INJ* 2 MG/ML VIAL IV PRN; Sodium Citrate/Citric Acid* 15 ML UDC ONE; Sodium Citrate/Citric Acid* 15 ML UDC PO ONE; fentaNYL* 50 MCG/ML 2 ML VIAL (100 MCG VIAL) ONE
[2017-12-21 13:53] VITALS: BP 116/76
--- NOTE | 2017-12-21 22:15 | OP ---
DATE OF OPERATION: 12/21/17 DATE OF : 70 SURGEON: Dr. Rodriguez DIETITIAN TEACHER: None. ANESTHESIA: General endotracheal tube. PRE-OP DIAGNOSES: Menorrhagia and submucous polyp. POST-OP DIAGNOSES: Menorrhagia and submucous polyp. OPERATIVE PROCEDURE: D and C, hysteroscopy and MyoSure, polypectomy and endometrial ablation. ESTIMATED BLOOD LOSS: Minimal. SPECIMEN: Includes endometrium and polyps. FLUIDS: Include 300 cc deficit of saline. FINDINGS: Include a small polyp on the posterior aspect of the fundus, both tubal ostia well visualized, the rest of the cavity appeared normal. DESCRIPTION OF PROCEDURE: The patient identified, procedure identified as a D and C, hysteroscopy, possible MyoSure, possible endometrial ablation. The patient was taken to the operating room, prepped and draped in the usual fashion in dorsal lithotomy position under general anesthesia. Two single- tooth tenaculum were placed on the anterior lip of the cervix. Cervix was sounded to 10 cm. The hysteroscope was used to find the endocervical os well and the cervix was dilated up to a #30 Bryon dilator. The Hegar was used to find the endocervical os and that was cervical length of 4 cm making the cavity length 6 cm. The above findings were noted and the MyoSure light was used to resect the polyp in the endometrium and take the sample of the endometrial cavity under direct visualization. The NovaSure device was then opened. The array was checked. The device was placed within the uterine cavity, cavity length of 6 cm, cavity width of 5 cm. The device was opened to a cavity width of 5 cm with manipulation, power setting of 165. The CO2 perforation test was performed and then the device passed. The NovaSure device was enabled and NovaSure ablation took place for 1 minute 20 seconds. At the end of the procedure, a good ablation was noted throughout the cavity and no polyps and no perforations were noted. All sponge and instrument counts were correct and the patient returned to recovery room in stable condition. [id number]/[facility] #: [id number] [facility]
== END | disposition home or self-care (01) ==
LOC: OR 10:34
PROVIDERS: ATTEND Obstetrics & Gynecology
DX: N92.0 Excessive and frequent menstruation with regular cycle (principal); J45.909 Unspecified asthma, uncomplicated; F41.8 Other specified anxiety disorders
CPT/HCPCS: 81025; 88305; A9270-GY; J2250; J3010

== ENCOUNTER 2019-03-22 16:24 | Emergency (ER) | payer OTHER ==
--- NOTE | 2019-03-22 17:22 | UC ---
Throat Pain/Nasal Teto HPI - HPI Summary HPI Summary: 48 y/o female presents to the urgent care c/o sore throat, productive cough and yellowish phlegm and sore throat for the past 3-4 days . She has PMHX of COPD and has been using her nebulizer and inhaler yesterday, but nothing today. She has been exposed to strep and pneumonia from family members. She had fever of 101.7 yesterday and then mild wheezing started. She is allergic to multiple antibiotics. Her couch is producing a yellowish phlegm. Pain w/ swallowing is 4/ 10 associated w/ moderate PND. Pt denies SOB, chest pain, dizziness, abdominal pain,N/V/D. - History of Current Complaint Stated Complaint: THROAT COMPLAINT Time Seen by Provider: 03/22/19 17:20 Hx Obtained From: Patient Hx Last Menstrual Period: 06/09/17 Onset/Duration: Gradual Onset, Lasting Days - 4 days, Still Present, Worse Since - last night w/ fever and mild wheezing Severity: Moderate Pain Intensity: 4 - sore throat Pain Scale Used: 0-10 Numeric Cough: Sputum Appears - yellowish Associated Signs & Symptoms: Positive: Wheezing - mild, Sinus Discomfort, Nasal Discharge - yellowish, Fever Related History: Other (Noted In Comments) - COPD - Epiglottits Risk Factors Epiglottis Risk Factors: Negative - Allergies/Home Medications Allergies/Adverse Reactions: Allergies Allergy/AdvReac Type Severity Reaction Status Date / Time azithromycin Allergy Severe GI Upset Verified 03/22/19 17:33 clarithromycin [From Biaxin] Allergy Severe Rash Verified 03/22/19 17:33 codeine Allergy Severe GI Upset Verified 03/22/19 17:33 doxycycline Allergy Severe Blisters Verified 03/22/19 17:33 erythromycin base Allergy Severe GI Upset Verified 03/22/19 17:33 Penicillins Allergy Unknown Unknown Verified 03/22/19 17:33 Reaction Details hydromorphone [From Dilaudid] Allergy "hysterical Verified 03/22/19 17:33 panic attack" ketorolac [From Toradol] Allergy See Comment Verified 03/22/19 17:33 latex Allergy Rash Verified 03/22/19 17:33 MULTIPLE ALLERGIES Allergy Severe See Comment Uncoded 03/22/19 17:33 ALL SEAFOOD Allergy ANAPHYLACTIC Uncoded 03/22/19 17:33 REACTION PMH/Surg Hx/FS Hx/Imm Hx Previously Healthy: Yes Respiratory History: COPD - Surgical History Surgical History: Yes Surgery Procedure, Year, and Place: APPENDECTOMY, CHOLECYSTECTOMY, C-SECTIONX2. MALIGNANT IN THE . FALLOPIAN TUBE REMOVAL - Family History Known Family History: Positive: Hypertension Negative: Diabetes - Social History Occupation: Employed Full-time Lives: With Family Alcohol Use: None Substance Use Type: None Smoking Status (MU): Former Smoker Type: Cigarettes Amount Used/How Often: 1/2-1 PPD X 30 YEARS Length of Time of Smoking/Using Tobacco: 25 YEARS Have You Smoked in the Last Year: Yes When Did the Patient Quit Smoking/Using Tobacco: 04/2017 - Immunization History Most Recent Influenza Vaccination: no Review of Systems All Other Systems Reviewed And Are Negative: Yes Constitutional: Positive: Fever, Other - body aches Skin: Positive: Negative Eyes: Positive: Negative ENT: Positive: Sore Throat, Nasal Discharge - yellowish, Sinus Congestion, Sinus Pain/Tenderness, Other - PND Respiratory: Positive: Cough - productive w/ yellowish phlegm Cardiovascular: Positive: Negative Gastrointestinal: Positive: Negative Genitourinary: Positive: Negative Motor: Positive: Negative Neurovascular: Positive: Negative Musculoskeletal: Positive: Negative Neurological: Positive: Negative Psychological: Positive: Negative Is Patient Immunocompromised?: No Physical Exam - Summary Physical Exam Summary: Vital Signs Reviewed: Yes General: well developed, well nourished female sitting in the examining table w/ o any apparent distress Eyes: Positive: Conjunctiva Clear - PERRLA, EOMI, fundi grossly normal ENT: Positive: Normal ENT inspection, Hearing grossly normal, Pharynx normal, Nasal congestion - edematous and erythematous nasal mucosa, Nasal drainage - yellowish drainage, TMs normal. Negative: Tonsillar swelling, Tonsillar exudate Neck: Positive: Supple, Nontender, No Lymphadenopathy Respiratory: no orthopnea or dyspnea. Able to speak in full sentences, no retractions or accessory muscle use, no tripod position, stridor, or head bobbing. Positive breath sounds bilaterally. mild diffuse scattered wheezing and rhonchi on posterior b/L lungs, no crackles or rales. Cardiovascular: Positive: RRR, No Murmur, Pulses Normal, Brisk Capillary Refill Abdomen Description: Positive: Nontender, No Organomegaly, Soft. Negative: CVA Tenderness (R), CVA Tenderness (L) Bowel Sounds: Positive: Present Musculoskeletal Exam: Normal Musculoskeletal: Positive: Strength Intact, ROM Intact, No Edema Neurological Exam: Normal Psychological Exam: Normal Skin Exam: Normal Triage Information Reviewed: Yes Throat Pain/Nasal Course/Dx - Course Course Of Treatment: 48 y/o female presents to the urgent care c/o sore throat, productive cough and yellowish phlegm and sore throat for the past 3-4 days . She has PMHX of COPD and has been using her nebulizer and inhaler yesterday, but nothing today. She has been exposed to strep and pneumonia from family members. She had fever of 101.7 yesterday and then mild wheezing started. She is allergic to multiple antibiotics. Her couch is producing a yellowish phlegm. Pain w/ swallowing is 4/ 10 associated w/ moderate PND. Pt denies SOB, chest pain, dizziness, abdominal pain,N/V/D. Hx obtained. Pt is hemodynamically stable. Pt w/mild diffuse scattered wheezing and rhonchi on b/L lungs, no crackles or rales. O2Sat: 100%. Rapid strep: negative; Influenza A&B: negative. Pt given albuterol Neb by nurse since she declined Duoneb Treatment to alleviate symptoms. Pt tolerated well treatment and lungs improved,and wheezing resolved. Chest X-ray ordered to r/o pneumonia: Impression: no acute cardiopulmonary disease observed. Pt w/ will be TX for COPD exacerbation.. Patient prescribed Cefdinir since hse has tolerated in the past, Tessalon tabs to alleviate cough and albuterol inhaler to alleviate mild wheezing as directed below. The patient was recommended to increase fluid intake. Take medications as recommended. Pt advised to return to the clinic or f/u w/ PCP if symptoms do not improve. All D/C instructions explained. Patient understood and agree w/ plan of care. Pt left clinic hemodynamically stable , A&OX3 - Differential Dx/Diagnosis Differential Diagnosis/HQI/PQRI: Influenza, Laryngitis, Pharyngitis, Sinusitis, Other - COPD exacerbation, pneumonia, asthma exacerbation Provider Diagnosis: COPD exacerbation, Wheezing Discharge ED - Sign-Out/Discharge Documenting (check all that apply): Patient Departure - D/C home All imaging exams completed and their final reports reviewed: Yes - Discharge Plan Condition: Stable Disposition: HOME Prescriptions: Albuterol 2.5MG/3ML (0.083%)* [Ventolin 2.5 MG/3 ML NEB.SRIDHAR*] 2.5 mg INH Q4H PRN #1 cristofer PRN Reason: Sob/Wheezing Benzonatate CAP* [Tessalon 100 MG CAP*] 100 mg PO TID PRN #21 cap PRN Reason: Cough Cefdinir cap* [Cefdinir 300 MG cap (NF)] 300 mg PO BID #14 cap Patient Education Materials: COPD (Chronic Obstructive Pulmonary Disease) (ED) Referrals: Clovis Tan MD [Primary Care Provider] - 3 Days Additional Instructions: 1-Please take full course of antibiotics to avoid resistance. take yogurts w/ probiotics or culturelle to protect your GI system 2-Take Tessalon tabs as directed and use the albuterol nebulizer Tx to alleviate cough and wheezing. Increase fluid intake, rest and eat well. 3- If symptoms do not improve or worsen or your develop SOB with fever and severe cough please go immediately to the ER further evaluation and treatment. 4-See your PCP in 2-3 days to check your symptoms are improving and further management in your COPD - Billing Disposition and Condition Condition: STABLE Disposition: Home
[2019-03-22 17:32] VITALS: BP 121/75
[2019-03-22] MEDS ORDERED: Albuterol/Ipratropium NEB.SOL* Albuterol 2.5 MG/Ipratropium 0.5 MG 3 ML INH ONE (17:55)
[2019-03-22 17:58] LABS: Influenza A Molecular NEGATIVE (Negative); Influenza B Molecular NEGATIVE (Negative)
[2019-03-22] MEDS ORDERED: Albuterol 2.5 MG/3 ML NEB.SOL* (0.083%) INH ONE (18:03)
== END 2019-03-22 18:51 | disposition home or self-care (01) ==
LOC: UCCORT 16:24
DX: J44.1 Chronic obstructive pulmonary disease with (acute) exacerbation (principal); R06.2 Wheezing; Z87.891 Personal history of nicotine dependence; Z91.013 Allergy to seafood; Z91.040 Latex allergy status; Z88.5 Allergy status to narcotic agent; Z88.0 Allergy status to penicillin; Z88.1 Allergy status to other antibiotic agents
CPT/HCPCS: 71046; 87651; 99212; A9270-GY; G0463

== ENCOUNTER 2019-05-05 21:40 | Emergency (ER) | payer OTHER ==
--- OUTSIDE RECORDS SUMMARY | 2019-05-05 21:48 | XMS REPORT | Continuity of Care Document ---
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 Onset: 05/30/2017 Allergic rhinitis Kathie Bennett M.D. Onset: 05/30/2017 Exacerbation of moderate persistent asthma Kathie Bennett M.D. Onset: Idiopathic urticaria John Montes De Oca M.D. Onset: 05/23/2017 Immunization John Montes De Oca M.D. Onset: 05/23/2017 Mild intermittent asthma John Montes De Oca M.D. Onset: 05/23/2017 Uncomplicated moderate persistent asthma Kathie Bennett M.D. Onset: 09/04 Ingestion dermatitis due to food Kathie Bennett M.D. Onset: 10/01/2018 Social History Type Date Description Comments Sex Unknown ETOH Use Occasionally consumes alcohol Recreational Drug Use Denies Drug Use Tobacco Use Start: Unknown End: Patient is a former smoker Unknown Smoking Status Reviewed: 06/12/17 Patient is a former smoker Allergies, Adverse Reactions, Alerts Active Allergies Reaction Severity Comments Date Penicillin Urticaria all 05/23/2017 Codeine Anaphylaxis 05/23/2017 Zithromax abdominal pain- severe 06/12/2017 Levaquin severe abdominal pain and 06/12/2017 vomitting. Tramadol Hemorhage 07/17/2017 Flagyl dizzy 02/01/2018 Doxicycline facial and hand blisters 03/25/2019 Medications Active Medications SIG Qnty Indications Ordering Date Provider Prednisone take 20mg every 20tabs Rachele 03/25/2019 20mg morning for 10 Uldrich, [employer] Tablets days. take with breakfast Ipratropium [place] use with nebulizer 75ml Rachele 03/25/2019 am&pm Denis [employer] 0.02% Solution Dulera 2 inhalations am&pm 13gm Oksana Godwinmond, 03/20/2019 200-5mcg/Act [employer] Aerosol Fluticasone Inhale One puff By 1units Xuan 05/27/2018 Propionate/Salmetero Mouth Twice A Day jayy Stewart [employer] 232-14mcg/Act Aerosol Levalbuterol HCL use via nebulizer 90ml J45.40 Rachele 05/10/2018 every 4 -6 hours Rossanadrafua [employer] 1.25mg/3ML Nebulizer for shortness of breath, cough or wheezing Albuterol Sulfate 1 neb inhalation 75ml J45.40 Kathie Fajardo 10/16/2017 every 4 hours as Joselyn Bennett (2.5mg/3ML) 0.083% needed Nebulizer Spiriva Respimat Inhale Two Puffs By 4units J45.40 Rachele 10/16/2017 Mouth Every Day Denis [employer] 1.25mcg/Act Aerosol Epinephrine use as directed - 4units Rachele 06/12/2017 mylan generic only Uldrafua, [employer]GER[employer] 0.3mg/0.3ML Solution [facility]– [place]# [id number] Auto-Inject Valacyclovir HCL Unknown 500mg Tablets Citalopram Unknown Hydrobromide 40mg Tablets Alprazolam Unknown 0.5mg Tablets Lansoprazole 1 by mouth in the 90caps Rachele 30mg morning Uldrafua [employer] Capsules DR [place] HFA inhale two puffs by 18units Rachele mouth every 4 hours Denis [employer] 108(90Base) mcg/Act as needed for Aerosol cough, shortness of breath, wheezing, or chest tightness Zyrtec Allergy 1 every day Unknown 10mg Tablets Nasacort Allergy spray 1 spray into Unknown 24HR each nostril one 55mcg/Act time daily Aerosol Immunizations CPT Code Status Date Vaccine Lot # [id number] Given 01/08/2019 Influenza Vaccine [id number] Given 03/05/2018 Influenza Vaccine [id number] Given Unknown Influenza Vaccine [id number] Given Unknown Influenza Vaccine Vital Signs Date Vital Result Comment 04/08/2019 11:28am Height 62 inches 5'2" Weight 142.00 lb Weight 64.411 kg Respiratory Rate 16 /min Heart Rate 71 /min O2 % BldC Oximetry 97 % BP Systolic 113 mmHg BP Diastolic 61 mmHg Asthma Control Test 24 Fractional Exhaled Nitric Oxide 18 BMI (Body Mass Index) 26.0 kg/m2 04/03/2019 3:51pm Height 62 inches 5'2" Weight 142.00 lb Weight 64.411 kg Respiratory Rate 18 /min Heart Rate 73 /min O2 % BldC Oximetry 98 % BP Systolic 127 mmHg BP Diastolic 69 mmHg Asthma Control Test 8 Fractional Exhaled Nitric Oxide 20 BMI (Body Mass Index) 26.0 kg/m2 Procedures Date Code Description Status 04/08/2019 05876 Nitric Oxide Gas Determination Completed 04/03/2019 21942 Nitric Oxide Gas Determination Completed 04/03/2019 62186 Ippb Completed 03/25/2019 76569 Nitric Oxide Gas Determination Completed 03/25/2019 83578 Ippb Completed 12/25/2018 14710 Nitric Oxide Gas Determination Completed 12/25/2018 03194 Pre PFT Completed Medical Devices Description No Information Available Encounters Type Date Location Provider Dx Diagnosis Office Visit 04/08/2019 [facility] Pati Shin45.40 Moderate persistent 11:20a [employer] asthma, uncomplicated J30.89 Other allergic rhinitis Office Visit 04/03/2019 3:40p [facility] Pati Shin45.40 Moderate persistent [employer] asthma, uncomplicated J30.89 Other allergic rhinitis L50.9 Urticaria, unspecified Office Visit 03/25/2019 10:20a [facility] Wong Shin.89 Other allergic [employer] rhinitis J45.41 Moderate persistent asthma with (acute) exacerbation Office Visit 12/25/2018 4:20p [facility] Rachele J45.40 Moderate persistent Uldrich, [employer] asthma, uncomplicated J30.89 Other allergic rhinitis L27.2 Dermatitis due to ingested food Z91.013 Allergy to seafood Assessments Date Code Description Provider 04/08/2019 J45.40 Moderate persistent asthma, uncomplicated Rachele Uldrich , [employer] 04/08/2019 J30.89 Other allergic rhinitis Rachele Uldrich, [employer] 04/03/2019 J45.40 Moderate persistent asthma, uncomplicated Ewelina García MD 04/03/2019 J45.40 Moderate persistent asthma, uncomplicated John Montes De Oca M.D. 04/03/2019 J45.40 Moderate persistent asthma, uncomplicated Rachele Uldrich , [employer] 04/03/2019 J30.89 Other allergic rhinitis John Montes De Oca M.D. 04/03/2019 J30.89 Other allergic rhinitis Rachele Uldrich, [employer]GER[employer] 04/03/2019 L50.9 Urticaria, unspecified John Montes De Oca M.D. 04/03/2019 L50.9 Urticaria, unspecified Rachele Uldrich, [employer]GER[employer] 03/25/2019 J30.89 Other allergic rhinitis John Montes De Oca M.D. 03/25/2019 J30.89 Other allergic rhinitis Rachele Uldrafua, [employer]GER[employer] 03/25/2019 J45.41 Moderate persistent asthma with (acute) John Montes De Oca M.D. exacerbation 03/25/2019 J45.41 Moderate persistent asthma with (acute) Rachele Uldrafua, [employer] exacerbation 01/08/2019 Z23 Encounter for immunization John Montes De Oca M.D. 01/08/2019 Z23 Encounter for immunization Racheleivania Barrios, [employer]GER[employer] 12/25/2018 J45.40 Moderate persistent asthma, uncomplicated John Montes De Oca M.D. 12/25/2018 J45.40 Moderate persistent asthma, uncomplicated John Montes De Oca M.D. 12/25/2018 J30.89 Other allergic rhinitis John Montes De Oca M.D. 12/25/2018 J45.40 Moderate persistent asthma, uncomplicated Rachele Denis , [employer] 12/25/2018 L27.2 Dermatitis due to ingested food John Montes De Oca M.D. 12/25/2018 J30.89 Other allergic rhinitis John Montes De Oca M.D. 12/25/2018 J30.89 Other allergic rhinitis MAITE Shin 12/25/2018 L27.2 Dermatitis due to ingested food John Montes De Oca M.D. 12/25/2018 L27.2 Dermatitis due to ingested food MAITE Shin 12/25/2018 Z91.013 Allergy to seafood John Montes De Oca M.D. 12/25/2018 Z91.013 Allergy to seafood MAITE Shin Plan of Treatment Future Appointment(s):07/08/2019 5:00 pm - MAITE Shin at [facility] Functional Status Description No Information Available Mental Status Description No Information Available Referrals Description No Information Available
--- OUTSIDE RECORDS SUMMARY | 2019-05-05 21:48 | XMS REPORT | Summary of Care ---
:1970 Author Organization [facility] Address [address] [place] [address] Care Team Providers Name Role Phone Mariano Vail MD Primary Care Provider Unavailable Reason for Visit Reason Comments Establish Care needs PCP Encounter Details Date Type Department Care Team Description 04/07/2019 Office Visit Yanira Villalta, Chronic obstructive Practice ACCOUNTS PAYABLE SPECIALIST pulmonary disease, [address] [facility] unspecified COPD type [address] [address] ([facility]) (Primary Dx) [phone] Allergies Not on Filedocumented as of this encounter (statuses as of 04/07/2019) Medications Medication Sig Dispensed Refills Start Date End Date Status Tiotropium [place] Take by 0 Active Monohydrate (SPIRIVA inhalation DAILY. RESPIMAT) 1.25 MCG/ACT Inhalation Aero Soln Mometasone Take 2 INHL by 0 Active Furo-Formoterol Fum inhalation. (DULERA) 200-5 MCG/ACT Inhalation Aerosol Albuterol Sulfate 108 Take by 0 Active (90 Base) MCG/ACT inhalation TWICE Inhalation AEROSOL DAILY. POWDER, BREATH ACTIVATED albuterol (ACCUNEB) by Inhalation-SVN 0 Active 0.63 MG/3ML Inhalation route NEEDED. Nebu Soln Cetirizine HCl (ZYRTEC Take 10 mg by 0 Active ALLERGY) 10 MG Oral mouth DAILY. Cap Lansoprazole Take 30 mg by 0 Active (PREVACID) 30 MG Oral mouth DAILY. CAPSULE DELAYED RELEASE valacyclovir (VALTREX) Take 500 mg by 0 Active 500 MG Oral Tab mouth DAILY. ALPRAZolam (XANAX) 0.5 Take 0.5 mg by 0 Active MG Oral Tab mouth EVERY BEDTIME NEEDED (up to 6 times daily). predniSONE (DELTASONE) Take 20 mg by 0 Active 20 MG Oral Tab mouth NEEDED (airway constriction). Triamcinolone Dalton in nose 0 Active Acetonide (NASACORT TWICE DAILY. ALLERGY 24HR NA) documented as of this encounter (statuses as of 04/07/2019) Active Problems Problem Noted Date COPD (chronic obstructive pulmonary disease) Allergies Overview: medications - antibiotics, foods( seafood) Genital herpes History of tobacco use documented as of this encounter (statuses as of 04/07/2019) Social History Tobacco Use Types Packs/Day Years Used Date Former Smoker Cigarettes Quit: 06/08/2016 Smokeless Tobacco: Never Used Comments: quit 05/2016 Alcohol Use Drinks/Week oz/Week Comments Not Currently Alcohol Habits Answer Date Recorded How often do you have a drink containing alcohol? Never 04/07/2019 How many drinks containing alcohol do you have on a typical Not asked day when you are drinking? How often do you have six or more drinks on one occasion? Not asked Sex Assigned at Date Recorded Not on file Job Start Date Occupation Industry Not on file Not on file Not on file Travel History Travel Start Travel End No recent travel history available. documented as of this encounter Last Filed Vital Signs Vital Sign Reading Time Taken Comments Blood Pressure 118/60 04/07/2019 10:53 AM EST Pulse 65 04/07/2019 10:53 AM EST Temperature 37 04/07/2019 10:53 AM EST C (98.6 F) Respiratory Rate - - Oxygen Saturation 95% 04/07/2019 10:53 AM EST Inhaled Oxygen Concentration - - Weight 64.9 kg (143 lb) 04/07/2019 10:53 AM EST Height 157.5 cm (5' 2") 04/07/2019 10:53 AM EST Body Mass Index 26.16 04/07/2019 10:53 AM EST documented in this encounter Patient Instructions Patient InstructionsYanira Lopez FNP - 04/07/2019 11:00 AM ESTContinue medications Follow up to establish with PCP soon documented in this encounter Progress Notes Yanira Lopez FNP - 04/07/2019 11:00 AM EST PATIENT: Jemma Romero : 1970 DATE OF SERVICE: 04/07/2019 CHIEF COMPLAINT: Chief Complaint Patient presents with Establish Care needs PCP Subjective HISTORY OF PRESENT ILLNESS: Jemma Romero is a 48-y.o. female. HPI Former pt of [facility] - transferring due to insurance. [facility] - has appointment tomorrow. Also sees Derm near [place] - melanoma and SCC per pt report. No record with pt today. Pt states has multiple allergies to medications and foods - will get previous records before fillingout allergy section of chart. Past Medical History: Diagnosis Date Allergies medications - antibiotics, foods( seafood) COPD (chronic obstructive pulmonary disease) (HCC) Genital herpes History of tobacco use quit 2 years ago Melanoma (HCC) Sees Derm in [place] History reviewed. No pertinent family history. Current Outpatient Medications Medication Sig albuterol (ACCUNEB) 0.63 MG/3ML Inhalation Nebu Soln by Inhalation-SVN route NEEDED. Albuterol Sulfate 108 (90 Base) MCG/ACT Inhalation AEROSOL POWDER, BREATH ACTIVATED Take by inhalation TWICE DAILY. ALPRAZolam (XANAX) 0.5 MG Oral Tab Take 0.5 mg by mouth EVERY BEDTIME NEEDED (up to 6 times daily). Cetirizine HCl (ZYRTEC ALLERGY) 10 MG Oral Cap Take 10 mg by mouth DAILY. Lansoprazole (PREVACID) 30 MG Oral CAPSULE DELAYED RELEASE Take 30 mg by mouth DAILY. Mometasone Furo-Formoterol Fum (DULERA) 200-5 MCG/ACT Inhalation Aerosol Take 2 INHL by inhalation. predniSONE (DELTASONE) 20 MG Oral Tab Take 20 mg by mouth NEEDED ( airway constriction). Tiotropium [place] Monohydrate (SPIRIVA RESPIMAT) 1.25 MCG/ACT Inhalation Aero Soln Take by inhalation DAILY. Triamcinolone Acetonide (NASACORT ALLERGY 24HR NA) Dalton in nose TWICE DAILY. valacyclovir (VALTREX) 500 MG Oral Tab Take 500 mg by mouth DAILY. No current facility-administered medications for this visit. Allergies not on file Social History Socioeconomic History Marital status: Single Spouse name: Not on file Number of children: Not on file Years of education: Not on file Highest education level: Not on file Occupational History Not on file Social Needs Financial resource strain: Not on file Food insecurity Worry: Not on file Inability: Not on file Transportation needs Medical: Not on file Non-medical: Not on file Tobacco Use Smoking status: Former Smoker Types: Cigarettes Last attempt to quit: 06/08/2016 Years since quittin.8 Smokeless tobacco: Never Used Tobacco comment: quit 05/2016 Substance and Sexual Activity Alcohol use: Not Currently Frequency: Never Drug use: Never Sexual activity: Not on file Lifestyle Physical activity Days per week: Not on file Minutes per session: Not on file Stress: Not on file Relationships Social connections Talks on phone: Not on file Gets together: Not on file Attends voodoo service: Not on file Active member of club or organization: Not on file Attends meetings of clubs or organizations: Not on file Relationship status: Not on file Intimate partner violence Fear of current or ex partner: Not on file Emotionally abused: Not on file Physically abused: Not on file Forced sexual activity: Not on file Other Topics Concern Not on file Social History Narrative Not on file Over the last 2 weeks, have you been feeling down, depressed, anxious, or hopeless?: 0 Over the past 2 weeks, have you felt little interest or pleasure in doing things ?: 0 REVIEW OF SYSTEMS: Review of Systems Constitutional: Negative for chills, fever and malaise/fatigue. HENT: Negative for congestion and ear pain. Respiratory: Positive for cough, sputum production and shortness of breath. Negative for wheezing. Musculoskeletal: Negative for myalgias. Neurological: Negative for headaches. Objective PHYSICAL EXAM: VITALS: BP 118/60 | Pulse 65 | Temp 98.6 F (37 C) (Tympanic) | Ht 5 ' 2" (1.575 m) | Wt 143 lb (64.9 kg) | SpO2 95% | BMI 26.16 kg/m Body mass index is 26.16 kg/m. Physical Exam Vitals signs and nursing note reviewed. Constitutional: General: She is not in acute distress. Appearance: Normal appearance. She is not ill-appearing. HENT: Head: Normocephalic and atraumatic. Nose: Nose normal. No rhinorrhea. Mouth/Throat: Mouth: Mucous membranes are moist. Pharynx: Oropharynx is clear. Eyes: Extraocular Movements: Extraocular movements intact. Conjunctiva/sclera: Conjunctivae normal. Pupils: Pupils are equal, round, and reactive to light. Cardiovascular: Rate and Rhythm: Normal rate and regular rhythm. Pulmonary: Effort: Pulmonary effort is normal. No respiratory distress. Breath sounds: Normal breath sounds. No wheezing, rhonchi or rales. Chest: Chest wall: No tenderness. Skin: General: Skin is warm and dry. Capillary Refill: Capillary refill takes less than 2 seconds. Coloration: Skin is not cyanotic. Neurological: Mental Status: She is alert and oriented to person, place, and time. Cranial Nerves: Cranial nerves are intact. Gait: Gait is intact. Psychiatric: Mood and Affect: Mood normal. Behavior: Behavior normal. Behavior is cooperative. ASSESSMENT / IMPRESSION: ICD-9-CM ICD-10-CM 1. Chronic obstructive pulmonary disease, unspecified COPD type (HCC) 496 J44.9 Plan Continue medications Follow up to establish with PCP soon Author: MURIEL Navarro 04/07/2019 11:09 documented in this encounter Plan of Treatment Health Maintenance Due Date Last Done Comments DTaP/Tdap/Td Vaccines (1 - Tdap) 1981 DEPRESSION SCREENING 1982 HIV SCREENING 1985 PAP SMEAR 1991 MAMMOGRAM (SCREENING) 2010 INFLUENZA VACCINE (#1) 2018 HEPATITIS A IMMUNIZATION SERIES Aged Out No longer eligible based on patient's age to complete this topic HPV IMMUNIZATION SERIES Aged Out No longer eligible based on patient's age to complete this topic MENINGOCOCCAL VACCINE IMM Aged Out No longer eligible based on patient's age to complete this topic PNEUMOCOCCAL 0-64 YRS Aged Out No longer eligible based on patient's age to complete this topic documented as of this encounter Results Not on filedocumented in this encounter Visit Diagnoses Diagnosis Chronic obstructive pulmonary disease, unspecified COPD type (HCC) documented in this encounter Insurance Payer Benefit Plan / Subscriber ID Effective Dates Phone Address Type Group [facility] xxxxxxxxxxx 2019-Present Dandy Guarantor Name Account Type Relation to Date of Phone Billing Patient Address Jemma Romero Personal/Family [address] (Home) [place], [place] [phone] [id number] (Work) documented as of this encounter
--- OUTSIDE RECORDS SUMMARY | 2019-05-05 21:48 | XMS REPORT | Continuity of Care Document ---
:1970 External Reference #:[id number] Author Name MAITE Shin Address [address] [place] [address] Care Team Providers Name Role Phone Juwan Rivas MD Care Team Information Field Staff [phone] Problems Active Problems Provider Date Cough Kathie Bennett M.D. Onset: 05/30/2017 Allergic rhinitis Kathie Bennett M.D. Onset: 05/30/2017 Exacerbation of moderate persistent asthma Kathie Bennett M.D. Onset: Idiopathic urticaria John Montes De Oca M.D. Onset: 05/23/2017 Immunization oJhn Montes De Oca M.D. Onset: 05/23/2017 Mild [...] 20tabs Rachele 03/25/2019 20mg morning for 10 [place] COMMERCIAL LOAN COORDINATOR-C Tablets days. take with breakfast Ipratropium [place] use with nebulizer 75ml Rachele 03/25/2019 am&pm Denis COMMERCIAL LOAN COORDINATOR-C 0.02% Solution Dulera 2 inhalations am&pm 13gm Oksana Jaime, 03/20/2019 200-5mcg/Act COMMERCIAL LOAN COORDINATOR-C Aerosol Fluticasone Inhale One puff By 1units Xuan 05/27/2018 Propionate/Salmetero Mouth Twice A Day jayy Stewart COMMERCIAL LOAN COORDINATOR-C 232-14mcg/Act Aerosol Levalbuterol HCL use via nebulizer 90ml J45.40 Rachele 05/10/2018 every 4 -6 hours Denis COMMERCIAL LOAN COORDINATOR-C 1.25mg/3ML Nebulizer for shortness of breath, cough or wheezing Albuterol Sulfate 1 neb inhalation 75ml J45.40 Kathie Scotty 10/16/2017 every 4 hours as Joselyn Bennett (2.5mg/3ML) 0.083% needed Nebulizer Spiriva Respimat Inhale Two Puffs By 4units J45.40 Rachele 10/16/2017 Mouth Every Day LILIANA BarriosP-C 1.25mcg/Act Aerosol Epinephrine use as directed - 4units Rachele 06/12/2017 mylan generic only Uldrafua COMMERCIAL LOAN COORDINATOR-C 0.3mg/0.3ML Solution [facility]# [id number] Auto-Inject Valacyclovir HCL Unknown 500mg Tablets Citalopram Unknown Hydrobromide 40mg Tablets Alprazolam Unknown 0.5mg Tablets Lansoprazole Jose, Ahmad, 30mg JenniferDBrinda Capsules DR Sparks HFRosy inhale two puffs by 18units Rachele mouth every 4 hours Denis COMMERCIAL LOAN COORDINATOR-C 108(90Base) mcg/Act as needed for Aerosol cough, shortness of breath, wheezing, or chest tightness Zyrtec Allergy 1 every day Unknown 10mg Tablets Nasacort Allergy spray 1 spray into Unknown 24HR each nostril one 55mcg/Act time daily Aerosol Cefdinir Unknown 300mg Capsules Immunizations CPT Code Status Date Vaccine Lot # [id number] Given 01/08/2019 Influenza Vaccine [id number] Given 03/05/2018 Influenza Vaccine [id number] 84645 Given Unknown Influenza Vaccine [id number] 36313 Given Unknown Influenza Vaccine Vital Signs Date Vital Result Comment 03/25/2019 10:40am Height 62 inches 5'2" Weight 142.00 lb Weight 64.411 kg Respiratory Rate 20 /min Heart Rate 76 /min Body Temperature 98.3 F O2 % BldC Oximetry 99 % BP Systolic 95 mmHg BP Diastolic 66 mmHg Asthma Control Test 8 Fractional Exhaled Nitric Oxide 68 BMI (Body Mass Index) 26.0 kg/m2 01/08/2019 4:11pm Height 62 inches 5'2" Weight 135.00 lb Patient stated Weight 61.236 kg Respiratory Rate 16 /min Heart Rate 67 /min O2 % BldC Oximetry 98 % BP Systolic 108 mmHg BP Diastolic 75 mmHg BMI (Body Mass Index) 24.7 kg/m2 Procedures Date Code Description Status 03/25/2019 08579 Nitric Oxide Gas Determination Completed 03/25/2019 62334 Ippb Completed 12/25/2018 13884 Nitric Oxide Gas Determination Completed 12/25/2018 66378 Pre PFT Completed 10/01/2018 17474 Pre PFT Completed Medical Devices Description No Information Available Encounters Type Date Location Provider Dx Diagnosis Office Visit 03/25/2019 [facility] Pati Shin30.89 Other allergic 10:20a COMMERCIAL LOAN COORDINATOR-C rhinitis J45.41 Moderate persistent asthma with (acute) exacerbation Office Visit 12/25/2018 4:20p [facility] Rachele J45.40 Moderate persistent Rossanadrich, COMMERCIAL LOAN COORDINATOR-C asthma, uncomplicated J30.89 Other allergic rhinitis L27.2 Dermatitis due to ingested food Z91.013 Allergy to seafood Office Visit 10/01/2018 4:00p [facility] J45.40 Moderate persistent Office Joselyn Bennett asthma, uncomplicated J30.89 Other allergic rhinitis L27.2 Dermatitis due to ingested food Assessments Date Code Description Provider 03/25/2019 J30.89 Other allergic rhinitis MURIEL Shin-C 03/25/2019 J45.41 Moderate persistent asthma with (acute) MURIEL Shin-C exacerbation 01/08/2019 Z23 Encounter for immunization John Montes De Oca M.D. 01/08/2019 Z23 Encounter for immunization MURIEL Shin-C 12/25/2018 J45.40 Moderate persistent asthma, uncomplicated John Montes De Oca M.D. 12/25/2018 J45.40 Moderate persistent asthma, uncomplicated John Montes De Oca M.D. 12/25/2018 J30.89 Other allergic rhinitis John Montes De Oca M.D. 12/25/2018 J45.40 Moderate persistent asthma, uncomplicated MURIEL Shin-C 12/25/2018 L27.2 Dermatitis due to ingested food John Montes De Oca M.D. 12/25/2018 J30.89 Other allergic rhinitis John Montes De Oca M.D. 12/25/2018 J30.89 Other allergic rhinitis MURIEL Shin-C 12/25/2018 L27.2 Dermatitis due to ingested food John Montes De Oca M.D. 12/25/2018 L27.2 Dermatitis due to ingested food MURIEL Shin-C 12/25/2018 Z91.013 Allergy to seafood John Montes De Oca M.D. 12/25/2018 Z91.013 Allergy to seafood MURIEL Shin-C 10/01/2018 J45.40 Moderate persistent asthma, uncomplicated Kathie Bennett M.D. 10/01/2018 J30.89 Other allergic rhinitis Kathie Bennett M.D. 10/01/2018 L27.2 Dermatitis due to ingested food Kathie Bennett M.D. Plan of Treatment Future Appointment(s):04/08/2019 11:20 am - MAITE Shin at [place] [facility]/25/2019 - MURIEL Shin-CJ30.89 Other allergic qrmrbqpcN10.41 Moderate persistent asthma with (acute) exacerbationNew Labs:CBC Diff Man Diff, Ordered: 03/25/19Ige Total, Ordered: 03/25/19New Xrays:Chest Xray, 2 views, Ordered: 03/25/19Recommendations:Continue all medications as prescribed.Refrain from wearing perfumes/scented colognes while visitingour office. IPPB now Stop the Spiriva and use the ipratropium in the nebulizer Get the labs drawnStart the Prednisone today Get the chest X-ray Continue the Dulera 2 puffs twice a day Continue the Spiriva 2 puffs daily Continue the Ventolin 2 puffs every 4 hours for cough, shortness of breath,chest tightness, or wheezing. Use before all exercise Monitor Albuterol use. If using more than 2x/week, please call the office as your asthma medications may need to be adjusted. Continue the Nasacort 2 sprays in the morning Continue strict avoidance of seafood . If accidental ingestion occurs, refer to Emergency Action Plan for treatment. Epinephrine is UTD. Functional Status Description No Information Available Mental Status Description No Information Available Referrals Description No Information Available
--- OUTSIDE RECORDS SUMMARY | 2019-05-05 21:48 | XMS REPORT | Continuity of Care Document ---
:1970 External Reference #:[id number] Author Name MAITE Shin Address [address] [place] [address] Care Team Providers Name Role Phone Juwan Rivas MD Care Team Information [employer]eral [employer] Licensee [phone] Problems Active Problems Provider Date Cough Kathie [...] Rachele 03/25/2019 20mg morning for 10 Uldrich HOSE CEMENTER-C Tablets days. take with breakfast Ipratropium [place] use with nebulizer 75ml Rachele 03/25/2019 am&pm Denis HOSE CEMENTER-C 0.02% Solution Dulera 2 inhalations am&pm 13gm Oksana Jaime, 03/20/2019 200-5mcg/Act HOSE CEMENTER-C Aerosol Fluticasone Inhale One puff By 1units Xuna 05/27/2018 Propionate/Salmetero Mouth Twice A Day jayy Stewart HOSE CEMENTER-C 232-14mcg/Act Aerosol Levalbuterol HCL use via nebulizer 90ml J45.40 Rachele 05/10/2018 every 4 -6 hours Denis HOSE CEMENTER-C 1.25mg/3ML Nebulizer for shortness of breath, cough or wheezing Albuterol Sulfate 1 neb inhalation 75ml J45.40 Kathie Scotty 10/16/2017 every 4 hours as Joselyn Bennett (2.5mg/3ML) 0.083% needed Nebulizer Spiriva Respimat Inhale Two Puffs By 4units J45.40 Rachele 10/16/2017 Mouth Every Day LILIANA BarriosP-C 1.25mcg/Act Aerosol Epinephrine use as directed - 4units Rachele 06/12/2017 mylan generic only Uldrafua HOSE CEMENTER-C 0.3mg/0.3ML Solution [facility]# [id number] Auto-Inject Valacyclovir HCL Unknown 500mg Tablets Citalopram Unknown Hydrobromide 40mg Tablets Alprazolam Unknown 0.5mg Tablets Lansoprazole Jose, Ahmad, 30mg JenniferDBrinda Capsules DR Sparks HFRosy inhale two puffs by 18units Rachele mouth every 4 hours Denis HOSE CEMENTER-C 108(90Base) mcg/Act as needed for Aerosol cough, shortness of breath, wheezing, or chest tightness Zyrtec Allergy 1 every day Unknown 10mg Tablets Nasacort Allergy spray 1 spray into Unknown 24HR each nostril one 55mcg/Act time daily Aerosol Immunizations CPT Code Status Date Vaccine Lot # [id number] Given 01/08/2019 Influenza Vaccine [id number] [id number] Given 03/05/2018 Influenza Vaccine 094746 68095 Given Unknown Influenza Vaccine [id number] 24436 Given Unknown Influenza Vaccine Vital Signs Date Vital Result Comment 04/03/2019 3:51pm Height 62 inches 5'2" Weight 142.00 lb Weight 64.411 kg Respiratory Rate 18 /min Heart Rate 73 /min O2 % BldC Oximetry 98 % BP Systolic 127 mmHg BP Diastolic 69 mmHg Asthma Control Test 8 Fractional Exhaled Nitric Oxide 20 BMI (Body Mass Index) 26.0 kg/m2 03/25/2019 10:40am Height 62 inches 5'2" Weight 142.00 lb Weight 64.411 kg Respiratory Rate 20 /min Heart Rate 76 /min Body Temperature 98.3 F O2 % BldC Oximetry 99 % BP Systolic 95 mmHg BP Diastolic 66 mmHg Asthma Control Test 8 Fractional Exhaled Nitric Oxide 68 BMI (Body Mass Index) 26.0 kg/m2 Procedures Date Code Description Status 04/03/2019 96111 Nitric Oxide Gas Determination Completed 03/25/2019 81249 Nitric Oxide Gas Determination Completed 03/25/2019 18681 Ippb Completed 12/25/2018 20855 Nitric Oxide Gas Determination Completed 12/25/2018 76754 Pre PFT Completed Medical Devices Description No Information Available Encounters Type Date Location Provider Dx Diagnosis Office Visit 04/03/2019 [facility] Pati Shin45.40 Moderate persistent 3:40p HOSE CEMENTER-C asthma, uncomplicated J30.89 Other allergic rhinitis L50.9 Urticaria, unspecified Office Visit 03/25/2019 10:20a [facility] Rachele Barrios J30.89 Other allergic HOSE CEMENTER-C rhinitis J45.41 Moderate persistent asthma with (acute) exacerbation Office Visit 12/25/2018 4:20p [facility] Rachele J45.40 Moderate persistent Uldrich, HOSE CEMENTER-C asthma, uncomplicated J30.89 Other allergic rhinitis L27.2 Dermatitis due to ingested food Z91.013 Allergy to seafood Assessments Date Code Description Provider 04/03/2019 J45.40 Moderate persistent asthma, uncomplicated Rachele Rossanadrich , HOSE CEMENTER-C 04/03/2019 J30.89 Other allergic rhinitis MURIEL Shin-George 04/03/2019 L50.9 Urticaria, unspecified MURIEL Shin-C 03/25/2019 J30.89 Other allergic rhinitis John Montes De Oca M.D. 03/25/2019 J30.89 Other allergic rhinitis MAITE Shin 03/25/2019 J45.41 Moderate persistent asthma with (acute) John Montes De Oca M.D. exacerbation 03/25/2019 J45.41 Moderate persistent asthma with (acute) MAITE Shin exacerbation 01/08/2019 Z23 Encounter for immunization John Montes De Oca M.D. 01/08/2019 Z23 Encounter for immunization MAITE Shin 12/25/2018 J45.40 Moderate persistent asthma, uncomplicated John Montes De Oca M.D. 12/25/2018 J45.40 Moderate persistent asthma, uncomplicated John Montes De Oca M.D. 12/25/2018 J30.89 Other allergic rhinitis John Montes De Oca M.D. 12/25/2018 J45.40 Moderate persistent asthma, uncomplicated MAITE Shin 12/25/2018 L27.2 Dermatitis due to [...] seafood MAITE Shin Plan of Treatment Future Appointment(s):04/08/2019 11:20 am - MAITE Shin at [facility] Functional Status Description No Information Available Mental Status Description No Information Available Referrals Description No Information Available
[2019-05-05 21:57] VITALS: BP 127/75
--- NOTE | 2019-05-05 22:04 | UC ---
General HPI - HPI Summary HPI Summary: 49-year-old woman comes in with a chief complaint of exposure to influenza. To people in her family have influenza and they are on Tamiflu. Patient has COPD. The last time she got influenza was COPD she ended up with a pneumonia. Patient feels well at this time. - History of Current Complaint Chief Complaint: UCRespiratory Stated Complaint: FLU EXPOSURE Time Seen by Provider: 05/05/19 21:45 Hx Last Menstrual Period: 06/09/17 Pain Intensity: 0 - Allergy/Home Medications Allergies/Adverse Reactions: Allergies Allergy/AdvReac Type Severity Reaction Status Date / Time azithromycin Allergy Severe GI Upset Verified 05/05/19 21:53 clarithromycin [From Biaxin] Allergy Severe Rash Verified 05/05/19 21:53 codeine Allergy Severe GI Upset Verified 05/05/19 21:53 doxycycline Allergy Severe Blisters Verified 05/05/19 21:53 erythromycin base Allergy Severe GI Upset Verified 05/05/19 21:53 Penicillins Allergy Unknown Unknown Verified 05/05/19 21:53 Reaction Details hydromorphone [From Dilaudid] Allergy "hysterical Verified 05/05/19 21:53 panic attack" ketorolac [From Toradol] Allergy See Comment Verified 05/05/19 21:53 latex Allergy Rash Verified 05/05/19 21:53 ALL SEAFOOD Allergy ANAPHYLACTIC Uncoded 05/05/19 21:53 REACTION PMH/Surg Hx/FS Hx/Imm Hx Previously Healthy: Yes Respiratory History: COPD - Surgical History Surgical History: Yes Surgery Procedure, Year, and Place: APPENDECTOMY, CHOLECYSTECTOMY, C-SECTIONX2. MALIGNANT IN THE . FALLOPIAN TUBE REMOVAL. Uterine ablation - Family History Known Family History: Positive: Hypertension Negative: Diabetes - Social History Alcohol Use: None Substance Use Type: None Smoking Status (MU): Former Smoker Type: Cigarettes Amount Used/How Often: 1/2-1 PPD X 30 YEARS Length of Time of Smoking/Using Tobacco: 25 YEARS Have You Smoked in the Last Year: Yes When Did the Patient Quit Smoking/Using Tobacco: 04/2017 - Immunization History Most Recent Influenza Vaccination: no Review of Systems All Other Systems Reviewed And Are Negative: Yes Constitutional: Positive: Negative Skin: Positive: Negative Eyes: Positive: Negative ENT: Positive: Negative Respiratory: Positive: Negative Cardiovascular: Positive: Negative Gastrointestinal: Positive: Negative Motor: Positive: Negative Neurovascular: Positive: Negative Musculoskeletal: Positive: Negative Neurological: Positive: Negative Psychological: Positive: Negative Is Patient Immunocompromised?: No Physical Exam Triage Information Reviewed: Yes Appearance: Well-Appearing, No Pain Distress, Well-Nourished Vital Signs: Initial Vital Signs Temp 98.4 F 05/05/19 21:54 Pulse 84 05/05/19 21:54 Resp 16 05/05/19 21:54 BP 127/75 05/05/19 21:54 Pulse Ox 100 05/05/19 21:54 Vital Signs Reviewed: Yes Eye Exam: Normal Eyes: Positive: Conjunctiva Clear ENT: Positive: Pharynx normal, TMs normal Neck: Positive: Supple Respiratory: Positive: Lungs clear, Normal breath sounds, No respiratory distress Cardiovascular: Positive: RRR Musculoskeletal: Positive: Strength Intact, ROM Intact Neurological: Positive: Alert, Muscle Tone Normal Psychological: Positive: Normal Response To Family, Age Appropriate Behavior Skin Exam: Normal Course/Dx - Course Course Of Treatment: Influenza swab was negative. Patient's history of getting pneumonia from influenza with COPD does increase her risk of influenza exposure. We discussed the 75 mg once a day versus twice a day dosing for Tamiflu. 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 GET REEVALUATED SOONER IF NOT IMPROVING OR WORSE OR ANY QUESTIONS OR CONCERNS. - Billing Disposition and Condition Condition: STABLE Disposition: Home
[2019-05-05 22:07] LABS: Influenza A Molecular NEGATIVE (Negative); Influenza B Molecular NEGATIVE (Negative)
== END 2019-05-05 22:20 | disposition home or self-care (01) ==
LOC: UCCORT 21:40
DX: Z20.828 Contact with and (suspected) exposure to other viral communicable diseases (principal); J44.9 Chronic obstructive pulmonary disease, unspecified; Z88.1 Allergy status to other antibiotic agents; Z91.040 Latex allergy status; Z88.5 Allergy status to narcotic agent; Z88.0 Allergy status to penicillin; Z88.6 Allergy status to analgesic agent; Z91.013 Allergy to seafood; Z87.891 Personal history of nicotine dependence
CPT/HCPCS: 99212; G0463

== ENCOUNTER 2019-05-07 04:24 | Emergency (ER) | payer OTHER ==
[2019-05-07] MEDS ORDERED: NS 0.9% 1000 ML** 3,000 ML IV ONE (04:47)
[2019-05-07] MEDS ORDERED: PROCHLORPERAZINE INJ 5 MG/ML 2 ML VIAL IV ONE (04:48)
--- NOTE | 2019-05-07 04:55 | ED ---
GI/ HPI - HPI Summary HPI Summary: Pt is a 49 y/o F presenting to the ED with a chief complaint of vomiting initially onset earlier tonight. She states she has had flu-like symptoms such as bodyaches and diarrhea onset earlier today, but now she cannot keep anything down. Two kids in her house are flu+, but she states she was negative yesterday. She denies fever. - History of Current Complaint Chief Complaint: EDFluSymptoms Time Seen by Provider: 05/07/19 04:41 Stated Complaint: NAUSEA PER PT Hx Obtained From: Patient Hx Last Menstrual Period: 06/09/17 Onset/Duration: Started Hours Ago, Still Present Timing: Constant, Lasting Hours Severity: Mild Current Severity: Moderate Pain Intensity: 5 Location of Pain: Diffuse Associated Signs and Symptoms: Positive: Nausea, Vomiting, Diarrhea. Negative: Fever Aggravating Factor(s): Nothing Alleviating Factor(s): Nothing - Allergy/Home Medications Allergies/Adverse Reactions: Allergies Allergy/AdvReac Type Severity Reaction Status Date / Time azithromycin Allergy Severe GI Upset Verified 05/05/19 21:53 clarithromycin [From Biaxin] Allergy Severe Rash Verified 05/05/19 21:53 codeine Allergy Severe GI Upset Verified 05/05/19 21:53 doxycycline Allergy Severe Blisters Verified 05/05/19 21:53 erythromycin base Allergy Severe GI Upset Verified 05/05/19 21:53 Penicillins Allergy Unknown Unknown Verified 05/05/19 21:53 Reaction Details hydromorphone [From Dilaudid] Allergy "hysterical Verified 05/05/19 21:53 panic attack" ketorolac [From Toradol] Allergy See Comment Verified 05/05/19 21:53 latex Allergy Rash Verified 05/05/19 21:53 ALL SEAFOOD Allergy ANAPHYLACTIC Uncoded 05/05/19 21:53 REACTION PMH/Surg Hx/FS Hx/Imm Hx Previously Healthy: Yes Cardiovascular History: Reports: Hx Valvular Heart Disease - MVP, Other Cardiovascular Problems/Disorders - MVP Respiratory History: Reports: Hx Asthma - ROUTINE AND PRN MEDICATION, Hx Chronic Obstructive Pulmonary Disease (COPD) - from pneumonia Comment Only: Other Respiratory Problems/Disorders - HX PNEUMONIA X 3 MONTHS TILL Jan- STATES WAS CHEMICAL INDUCED GI History: Reports: Hx Gastroesophageal Reflux Disease - ON MEDICATION FOR Musculoskeletal History: Reports: Hx Arthritis - BACK, Hx Back Problems - Degenerative disc disease Sensory History: Reports: Hx Contacts or Glasses - INSTRUCTS GIVEN Denies: Hx Hearing Aid Opthamlomology History: Reports: Hx Contacts or Glasses - INSTRUCTS GIVEN Neurological History: Reports: Hx Headaches - 2 TIMES PER MONTH- TREATS WITH REST AND TYLENOL, Hx Migraine - HX OF Psychiatric History: Reports: Hx Anxiety - ALPRAZOLAM FOR, Hx Depression - Cancer History Cancer Type, Location and Year: melanoma - Surgical History Surgery Procedure, Year, and Place: APPENDECTOMY, CHOLECYSTECTOMY, C-SECTIONX2. MALIGNANT IN THE . [place] TUBE REMOVAL. Uterine ablation Hx Anesthesia Reactions: No Infectious Disease History: No Infectious Disease History: Reports: Hx of Known/Suspected MRSA - incision Denies: Traveled Outside the [place] in Last 30 Days - Family History Known Family History: Positive: Hypertension Negative: Diabetes - Social History Alcohol Use: None Hx Substance Use: No Substance Use Type: Reports: None Hx Tobacco Use: Yes Smoking Status (MU): Former Smoker Type: Cigarettes Amount Used/How Often: 1/2-1 PPD X 30 YEARS Length of Time of Smoking/Using Tobacco: 25 YEARS Have You Smoked in the Last Year: Yes Review of Systems Negative: Fever Positive: Vomiting, Diarrhea, Nausea Positive: Myalgia All Other Systems Reviewed And Are Negative: Yes Physical Exam - Summary Physical Exam Summary: Appearance: Acutely ill, somewhat dehydrated appearing, lying on the stretcher in no respiratory distress. Skin: Warm, dry, no obvious rash Eyes: sclera anicteric, no conjunctival pallor ENT: mucous membranes moist, pharynx appears normal Neck: Supple, nontender Respiratory: Clear to auscultation, no signs of respiratory distress Cardiovascular: Normal S1, S2. No murmurs. Normal distal pulses in tibial and radial bilaterally. Abdomen: Soft, nontender, normal active bowel sounds present Musculoskeletal: Normal, Strength/ROM Intact Neurological: A&Ox3, awake and alert, mentation is normal, speech is fluent and appropriate Psychiatric: affect is normal, does not appear anxious or depressed Triage Information Reviewed: Yes Vital Signs On Initial Exam: Initial Vitals Temp Pulse Resp BP Pulse Ox 99.9 F 99 20 121/71 98 05/07/19 04:27 05/07/19 04:27 05/07/19 04:27 05/07/19 04:27 05/07/19 04:27 Vital Signs Reviewed: Yes Procedures - Sedation Patient Received Moderate/Deep Sedation with Procedure: No Diagnostics - Vital Signs Vital Signs Temp Pulse Resp BP Pulse Ox 05/07/19 04:38 88 99 05/07/19 04:37 86 116/70 98 05/07/19 04:27 99.9 F 99 20 121/71 98 - Laboratory Result Diagrams: 05/07/19 05:00 05/07/19 05:00 Lab Statement: Any lab studies that have been ordered have been reviewed, and results considered in the medical decision making process. GIGU Course/Dx - Course Course Of Treatment: Pt is a 49 y/o F presenting to the ED with a chief complaint of vomiting initially onset earlier tonight. She states she has had flu-like symptoms such as bodyaches and diarrhea onset earlier today, but now she cannot keep anything down. Two kids in her house are flu+, but she states she was negative yesterday. She denies fever. On exam, pt is acutely ill, but somewhat dehydrated appearing, female lying on the stretcher in [facility]. Pt will be discharged upon improvement with dx of gastroenteritis and nausea/vomiting. She is stable and agreeable with this plan. - Diagnoses Provider Diagnoses: Gastroenteritis, Nausea & vomiting Discharge ED - Sign-Out/Discharge Documenting (check all that apply): Patient Departure - Discharge Plan Condition: Good Disposition: HOME Prescriptions: Prochlorperazine 10 mg TAB [Compazine 10 mg TAB] 10 mg PO Q6H PRN #10 tab PRN Reason: Nausea Prochlorperazine SUPP* [Compazine Supp*] 25 mg DC Q12H PRN #6 supp PRN Reason: Nausea Patient Education Materials: Gastroenteritis (ED), Acute Nausea and Vomiting ( ED) Referrals: Kathie Bennett MD [Primary Care Provider] - Additional Instructions: I sent prescriptions for compazine in pill and suppository form, in case you can 't keep pills down. Stick to a clear liquid diet through today to stay hydrated. If feeling better, you can advance your diet on . - Billing Disposition and Condition Condition: GOOD Disposition: Home - Attestation Statements Document Initiated by Scribe: Yes Documenting Scribe: Becki Aquino Provider For Whom Scribe is Documenting (Include Credential): Omar Delcid MD. Scribe Attestation: I, Becki Aquino, scribed for Omar Delcid MD. on 05/08/19 at 0107. Scribe Documentation Reviewed: Yes Provider Attestation: The documentation as recorded by the scribe, Becki Aquino accurately reflects the service I personally performed and the decisions made by me, Omar Delcid MD. Status of Scribe Document: Viewed
[2019-05-07 05:08] LABS: ABS Eosinophils 0.1 10^3/ul (0-0.6); ABS Lymphocytes 0.3 10^3/ul (1.0-4.8); ABS Monocytes 0.3 10^3/ul (0-0.8); ABS Neutrophils 7.9 10^3/ul (1.5-7.7); Hematocrit 40 % (35-47); Hemoglobin 13.9 g/dL (12.0-16.0); Lymphocyte % 3.7 %; Mean Corpuscular HGB Conc 35 g/dL (31-36); Mean Corpuscular Hemoglobin 34 pg (27-31); Mean Corpuscular Volume 96 fL (80-97); Mean Platelet Volume 7.6 fL (7.4-10.4); Nucleated Red Blood Cells % 0.1; Platelet Count 203 10^3/uL (150-450); Red Cell Distribution Width 12 % (10-15); White Blood Count 8.7 10^3/uL (3.5-10.8)
[2019-05-07 05:25] LABS: Albumin 3.9 g/dL (3.2-5.2); Albumin/Globulin Ratio 1.6 (1-3); BUN/Creatinine Ratio 21.8 (8-20); Calcium 8.3 mg/dL (8.6-10.3); EGFR Non-African American 78.5 (>60); Globulin 2.5 g/dL (2-4); Potassium 3.7 mmol/L (3.5-5.0); Total Bilirubin 0.6 mg/dL (0.2-1.0); Total Protein 6.4 g/dL (6.4-8.9)
[2019-05-07 06:59] VITALS: BP 113/68
== END 2019-05-07 06:58 | disposition home or self-care (01) ==
LOC: ED 04:24
DX: K52.9 Noninfective gastroenteritis and colitis, unspecified (principal); J44.9 Chronic obstructive pulmonary disease, unspecified; K21.9 Gastro-esophageal reflux disease without esophagitis; F41.9 Anxiety disorder, unspecified; Z88.1 Allergy status to other antibiotic agents; Z91.040 Latex allergy status; Z88.5 Allergy status to narcotic agent; Z88.0 Allergy status to penicillin; Z91.013 Allergy to seafood; Z87.891 Personal history of nicotine dependence
CPT/HCPCS: 36415; 80053; 85025; 96361; 96374; 99283; J0780

== ENCOUNTER 2019-06-21 14:35 | Emergency (ER) | payer OTHER ==
--- OUTSIDE RECORDS SUMMARY | 2019-06-21 14:42 | XMS REPORT ---
:1970 Author Name Heaven Jewell Address [facility] Unavailable , Care Team Providers Name Role Phone Heaven Jewell Unavailable Unavailable Santa Cardenas Unavailable Unavailable Allergies, Adverse Reactions, Alerts Allergy Code CodeSystem Reaction Severity Status Substance RxNorm Medications Medication Medication Medication Start Route Dose Status Fill Code CodeSystem Date Instructions RxNorm NoCurrentDosage No NoCurrentFrequency Longer Active alprazolam RxNorm 2019-0 oral 0.5 mg tablet No for 30 3-26 Longer day(s) Active alprazolam RxNorm 2019-0 oral 0.5 mg tablet No for 30 5-28 Longer day(s) Active alprazolam RxNorm 2019-0 oral 0.5 mg tablet No for 30 4-26 Longer day(s) Active Celexa RxNorm 2019-0 oral 40 mg 1 tablet Active 1 tablet 6-11 once a day once a day for 30 day(s) alprazolam RxNorm 2019-0 oral 0.5 mg 1 tablet No Take 1 tablet 6-27 every four hours Longer every four Active hours as needed for 30 day(s) Hospital Discharge Medications Medication Direction Start Date Status Indications Fill Instuctions No Discharge Medication Problems Problem Name Code CodeSystem Start Date End Date Status SNOMED-CT 2018-07-05 Active SNOMED-CT 2018-09-12 Active SNOMED-CT 2018-09-12 Active Laboratory Values/Results Test Test Code Code System Actual Result Date LOINC Procedures Procedure Name Code CodeSystem Target Site Date of Procedure SNOMED-CT () 2018-09-24 SNOMED-CT () 2018-11-01 SNOMED-CT () 2018-11-15 SNOMED-CT () 2018-12-06 Encounter Diagnosis Code CodeSystem Description Date Finding Finding Status Code 32436 [facility] Psychotherapy - 2018-11-15 - Active Individual 30 min 3 SNOMED-CT Vital Signs Vitals Date Value Immunizations Vaccine Name Vaccine Code CodeSystem Date Status Social History Element Description Start Date End Date Code CodeSystem Description SNOMED-CT Hospital Discharge Instructions Reason For Referral
--- OUTSIDE RECORDS SUMMARY | 2019-06-21 14:42 | XMS REPORT ---
:1970 Author Organization [facility] Care Team Providers Name Role Phone COLETTE CORONA Primary Care Physician Unavailable Allergies, Adverse Reactions, Alerts Allergy Code CodeSystem Reaction Severity Criticality Status Start Substance Date Moderate Medications Medication Medication Medication Start Stop Route Dose Status Fill Code CodeSystem Date Date Instructions citalopram 052934 RxNorm 2018-09 oral 40 mg active for tablet day(s) alprazolam 680136 RxNorm 2018-06-0 oral 0.5 mg completed for 5-28 tablet day(s) alprazolam 605713 RxNorm 2019-02 oral 0.5 mg completed for 2- tablet day(s) alprazolam 242192 RxNorm 2018-110 oral 0.5 mg completed for 9-28 tablet day(s) alprazolam 765965 RxNorm 2019-03-0 oral 0.5 mg active for 1-05 tablet day(s) alprazolam 232443 RxNorm 2018-080 oral 0.5 mg completed for 6-27 tablet day(s) alprazolam 402247 RxNorm 2018-10-0 oral 0.5 mg completed for 8-28 tablet day(s) alprazolam 563598 RxNorm 2018-11-0 oral 0.5 mg completed for 9-30 tablet day(s) alprazolam 258117 RxNorm 2018-09-0 oral 0.5 mg completed Take 1 tablet - 7- 1 every four tablet hours as every needed for 30 four day(s) hours alprazolam 647247 RxNorm 2019-02 oral 0.5 mg completed for 2- tablet day(s) alprazolam 375304 RxNorm 2018-12 oral 0.5 mg completed for 30 -30 0-30 tablet day(s) Celexa 200712 RxNorm 2018-09-0 oral 40 mg 1 completed 1 -12-23 tablet once a day once a for 30 day(s) day alprazolam 044952 RxNorm 2018-070 oral 0.5 mg completed for 30 - 5- tablet day(s) alprazolam 066965 RxNorm 2018-100 oral 0.5 mg completed for 8- tablet day(s) Problems Problem Name Code CodeSystem Alternate Alternate Start End Status Narrative Code CodeSystem Date Date Generalized 84694870 SNOMED-CT Active anxiety 5-30 disorder Panic 82018011 SNOMED-CT Active disorder - Relevant diagnostic tests/laboratory data Narrative No Information Procedures Procedure Code CodeSystem Target Date of Status Service Device Device Device Name Site Procedure Delivery Code Name UID Location Office or [id number] SNOMED-CT () 2018-09-24 complete Mental other 6 d Health- outpatient [place] visit for [address] [phone] patient, [id number] which requires at least 2 of these 3 luna components: A problem focused history; A problem focused examination; Straightforw nanette medical decision making. Counselin Psychotherap [id number] SNOMED-CT () 2018-11-01 complete Mental y, 45 04 d Health- minutes with [place] patient [address], [id number] [phone] SNOMED-CT () 2018-11-15 complete Mental d Health- [place] [address], [phone] Psychotherap [id number] SNOMED-CT () 2018-12-06 complete Mental y, 45 04 d Health- minutes with [place] patient [address], [id number] [phone] Office [place] [id number] SNOMED-CT () 2019-05-12 complete Mental other 6 d Health- outpatient [place] visit for [address] [phone] patient, [phone] which requires at least 2 of these 3 luna components: A problem focused history; A problem focused examination; Straightforw nanette medical decision making. Counselin Encounters/Encounter Diagnoses Encounter Name Encounter Diagnosis Diagnosis Diagnosis Date of Service Code Code Name CodeSystem Diagnosis Delivery Location [facility] [id number] Panic SNOMED-CT 2019-05-12 Behavioral Established disorder Health patient [address] [place], [place], [phone] Vital Signs No Information Social History Element Description Description Start End Code CodeSystem AdditionalInfo Date Date SexAssignedAtBirth Female F AdministrativeGender 1-13 Hospital Discharge Instructions Reason For Referral Medical Equipment FDA Assessments
[2019-06-21 14:48] VITALS: BP 125/78
--- NOTE | 2019-06-21 15:09 | ED ---
Respiratory - HPI Summary HPI Summary: 49 yo EF h/o COPD ex-smoker quit 2017 p/w URI sx of cough, congestion and chest tightness associated with mild sputum and pleuritic CP, denies /f/c. Hypersensitive to many meds but would states she progresses to bronchitis pretty quickly, admits sick contacts at home. Has taken prednisone in the past - History of Current Complaint Chief Complaint: UCGeneralIllness Stated Complaint: CONGESTION, SORE THROAT Time Seen by Provider: 06/21/19 14:38 Hx Obtained From: Patient Onset/Duration: Sudden Onset, Gradual Onset Initial Severity: Moderate Current Severity: Moderate Pain Intensity: 7 Character: Cough (Productive), Cough (Nonproductive) Sputum Amount: Moderate Sputum Color: Yellow Alleviating Factor(s): MDI (Frequency Of Use), Neb. Bronchodilators (Frequency Of Use) - Allergy/Home Medications Allergies/Adverse Reactions: Allergies Allergy/AdvReac Type Severity Reaction Status Date / Time azithromycin Allergy Severe GI Upset Verified 06/21/19 14:46 clarithromycin [From Biaxin] Allergy Severe Rash Verified 06/21/19 14:46 codeine Allergy Severe GI Upset Verified 06/21/19 14:46 doxycycline Allergy Severe Blisters Verified 06/21/19 14:46 erythromycin base Allergy Severe GI Upset Verified 06/21/19 14:46 Penicillins Allergy Unknown Unknown Verified 06/21/19 14:46 Reaction Details hydromorphone [From Dilaudid] Allergy "hysterical Verified 06/21/19 14:46 panic attack" ketorolac [From Toradol] Allergy See Comment Verified 06/21/19 14:46 latex Allergy Rash Verified 06/21/19 14:46 ALL SEAFOOD Allergy ANAPHYLACTIC Uncoded 06/21/19 14:46 REACTION Home Medications: Home Medications ALPRAZolam TAB* [Xanax TAB*] 0.5 mg PO Q4H PRN MDD 6 04/01/12 [History Confirmed 06/21/19] Cetirizine* [ZyrTEC 10 MG TAB*] 10 mg PO QPM 02/22/13 [History Confirmed ] ValACYclovir (*) [Valtrex 500 mg (*)] 1 tab PO QPM 06/12/17 [History Confirmed 06/21/19] Albuterol HFA INHALER* [Ventolin HFA Inhaler*] 2 puff INH Q4H PRN 11/29/17 [ History Confirmed 06/21/19] Collagen 1 tab PO QAM 11/29/17 [History Confirmed 06/21/19] L.acidoph,Paracasei, B.lactis [Probiotic] 1 each PO QAM 11/29/17 [History Confirmed 06/21/19] Lansoprazole 15 mg PO QAM 11/29/17 [History Confirmed 06/21/19] Mometasone/Formoter 200/5 MDI* [Dulera 200/5 MDI*] 2 puff INH BID 11/29/17 [ History Confirmed 06/21/19] Tiotropium [place] [Spiriva Respimat] 2 puff INH QAM 11/29/17 [History Confirmed 06/21/19] Triamcinolone NASAL SPRAY* [Nasacort Aq Nasal [place]*] 1 puff NASAL BID 11/29/17 [History Confirmed 06/21/19] Albuterol 2.5MG/3ML (0.083%)* [Ventolin 2.5 MG/3 ML NEB.SRIDHAR*] 2.5 mg INH Q4H PRN #1 cristofer 03/22/19 [Rx Confirmed 06/21/19] Cephalexin CAP* [Keflex CAP*] 500 mg PO TID 7 Days #21 cap 06/21/19 [Rx] Citalopram TAB* [Celexa TAB*] 40 mg PO DAILY 06/21/19 [History Confirmed ] predniSONE [Prednisone 20 MG TAB] 20 mg PO DAILY PRN 06/21/19 [History Confirmed 06/21/19] PMH/Surg Hx/FS Hx/Imm Hx Previously Healthy: Yes Cardiovascular History: Reports: Hx Valvular Heart Disease - MVP, Other Cardiovascular Problems/Disorders - MVP Respiratory History: Reports: Hx Asthma - ROUTINE AND PRN MEDICATION, Hx Chronic Obstructive Pulmonary Disease (COPD) - from pneumonia Comment Only: Other Respiratory Problems/Disorders - HX PNEUMONIA X 3 MONTHS TILL Jan- STATES WAS CHEMICAL INDUCED GI History: Reports: Hx Gastroesophageal Reflux Disease - ON MEDICATION FOR Musculoskeletal History: Reports: Hx Arthritis - BACK, Hx Back Problems - Degenerative disc disease Sensory History: Reports: Hx Contacts or Glasses - INSTRUCTS GIVEN Denies: Hx Hearing Aid Opthamlomology History: Reports: Hx Contacts or Glasses - INSTRUCTS GIVEN Neurological History: Reports: Hx Headaches - 2 TIMES PER MONTH- TREATS WITH REST AND TYLENOL, Hx Migraine - HX OF Psychiatric History: Reports: Hx Anxiety - ALPRAZOLAM FOR, Hx Depression - Cancer History Cancer Type, Location and Year: melanoma. squamous cell carcinoma - Surgical History Surgery Procedure, Year, and Place: APPENDECTOMY, CHOLECYSTECTOMY, C-SECTIONX2. MALIGNANT IN THE . FALLOPIAN TUBE REMOVAL. Uterine ablation Hx Anesthesia Reactions: No Infectious Disease History: Yes Infectious Disease History: Reports: Hx of Known/Suspected MRSA Denies: Traveled Outside the [place] in Last 30 Days - Family History Known Family History: Positive: Hypertension Negative: Diabetes - Social History Alcohol Use: None Hx Substance Use: No Substance Use Type: Reports: None Hx Tobacco Use: Yes Smoking Status (MU): Former Smoker Type: Cigarettes Amount Used/How Often: 1/2-1 PPD X 30 YEARS Length of Time of Smoking/Using Tobacco: 25 YEARS Have You Smoked in the Last Year: Yes Review of Systems Constitutional: Negative Eyes: Negative ENT: Negative Cardiovascular: Negative Respiratory: Negative Positive: Cough. Negative: Shortness Of Breath Gastrointestinal: Negative Genitourinary: Negative Musculoskeletal: Negative Skin: Negative Neurological/Mental Status: Negative Positive: Headache All Other Systems Reviewed And Are Negative: Yes Physical Exam Triage Information Reviewed: Yes Vital Signs On Initial Exam: Initial Vitals Temp Pulse Resp BP Pulse Ox 37.1 C 77 17 125/78 99 06/21/19 14:43 06/21/19 14:43 06/21/19 14:43 06/21/19 14:43 06/21/19 14:43 Vital Signs Reviewed: Yes Appearance: Positive: No Pain Distress Skin: Positive: Warm Head/Face: Positive: Normal Head/Face Inspection Eyes: Positive: Normal ENT: Positive: Normal ENT inspection Dental: Negative: Cervical Lymphadenopathy Neck: Positive: Supple Respiratory/Lung Sounds: Positive: Clear to Auscultation Cardiovascular: Positive: Normal, RRR, S1, S2 Abdomen Description: Positive: Nontender Musculoskeletal: Positive: Normal Neurological: Positive: Normal Psychiatric: Positive: Normal Diagnostics - Vital Signs Vital Signs Temp Pulse Resp BP Pulse Ox 06/21/19 14:43 37.1 C 77 17 125/78 99 - Laboratory Lab Statement: Any lab studies that have been ordered have been reviewed, and results considered in the medical decision making process. Disposition - Course Assessment/Plan: Rapid flu negative. Will tx empirically with Keflex for this COPD pt with previous hx of bronchitis and propensity for PNA per pt's hx - Differential Dx - Cardiopulmonary Differential Diagnoses - Cardiopulmonary: Bronchitis - Diagnoses Provider Diagnoses: Bronchitis, COPD exacerbation Discharge ED - Sign-Out/Discharge Documenting (check all that apply): Patient Departure All imaging exams completed and their final reports reviewed: No Studies - Discharge Plan Condition: Stable Disposition: HOME Prescriptions: Cephalexin CAP* [Keflex CAP*] 500 mg PO TID 7 Days #21 cap Patient Education Materials: Acute Bronchitis (ED) Referrals: Christal Stovall MD [Primary Care Provider] - - Billing Disposition and Condition Condition: STABLE Disposition: Home
[2019-06-21 15:26] LABS: Influenza A Molecular Negative (Negative); Influenza B Molecular Negative (Negative)
== END 2019-06-21 15:42 | disposition home or self-care (01) ==
LOC: UCCORT 14:35
DX: J44.1 Chronic obstructive pulmonary disease with (acute) exacerbation (principal); K21.9 Gastro-esophageal reflux disease without esophagitis; M51.36 Other intervertebral disc degeneration, lumbar region; F41.9 Anxiety disorder, unspecified; F32.9 Major depressive disorder, single episode, unspecified; Z88.0 Allergy status to penicillin; Z88.1 Allergy status to other antibiotic agents; Z88.5 Allergy status to narcotic agent; Z91.013 Allergy to seafood; Z91.040 Latex allergy status; Z79.899 Other long term (current) drug therapy; Z87.891 Personal history of nicotine dependence
CPT/HCPCS: 99212; G0463